=== PATIENT | female | born 1955 | race Caucasian/White ===

== ENCOUNTER 2017-07-26 17:43 | Inpatient (IN) | payer MEDICARE, BC ==
[~2017-07-26 17:43] MED LIST: ISOVUE-370 76%-LOCM 1 ML ONE
[2017-07-26 18:30] LABS: #Eosinphils 0.1 thou/uL (0.0-0.7); #Lymphocytes 0.7 thou/uL (1.20-3.40); #Monocytes 0.3 thou/uL (0.11-0.59); #Neutrophils 10.5 thou/uL (1.40-6.50); %Basophils 0.2 % (0.0-1.0); %Eosinophils 0.7 % (0.0-10.0); %Lymphocytes 6.3 % (21.0-51.0); %Monocytes 2.6 % (0.0-10.0); Hematocrit 43.7 % (36.0-47.0); Mean Platelet Volume 7.6 fL (7.4-10.4); Red Blood Cell (RBC) Count 4.68 mill/uL (4.20-5.40); White Blood Cell (WBC) Count 11.6 thou/uL (4.8-10.8)
[2017-07-26 18:35] LABS: PTT 26.5 SEC (22.9-36.1)
[2017-07-26 18:36] LABS: Prothrombin Time 24.9 SEC (12.0-14.7)
[2017-07-26] MEDS ORDERED: Water For Inject, Bacteriostat 30 ML ONE (18:46)
[2017-07-26] MEDS ORDERED: Azithromycin 500 MG VIAL ONE (18:46)
[2017-07-26] MEDS ORDERED: methylPREDNISolone Sod Succ/PF 125 MG/2 ML VIAL ONE (18:46)
[2017-07-26 18:50] LABS: ALT (SGPT) 20 U/L (8-55); AST (SGOT) 20 U/L (5-34); Alkaline Phosphatase 69 U/L (40-150); Anion Gap 18 mmol/L (10-20); BUN (Urea Nitrogen) 25 mg/dL (9.8-20.1); Bilirubin, Total 0.3 mg/dL (0.2-1.2); CK (CPK) 44 U/L (29-168); Calc. Creatinine Clearance 0 mL/min (70-130); Calcium 8.7 mg/dL (7.8-10.44); Carbon Dioxide 20 mmol/L (22-29); Chloride 108 mmol/L (98-107); Estimated GFR-MDRD 57; Globulin 3.2 g/dL (2.4-3.5); Protein, Total 6.8 g/dL (6.0-8.3)
[2017-07-26 18:53] LABS: Troponin I Less than 0.010 ng/mL (< 0.028)
--- NOTE | 2017-07-26 20:09 | RAD ---
ONE VIEW CHEST: Comparison: 01-19-17, 07-24-17 History: Shortness of breath. FINDINGS: Normal cardiac silhouette. Slight elongation of the aorta. Fullness of the right hilum likely due to decreased lung volumes. Increased interstitial opacity in the lung base may represent atelectasis o r infiltrate superimposed upon esophagus. No pneumothorax or osseous abnormality. IMPRESSION: Chronic changes. Bibasilar infiltrate cannot be excluded. Continued surveillance. POS: [facility]
--- NOTE | 2017-07-26 21:34 | CT ---
CTA ANGIOGRAM OF THE CHEST: History: Hypoxia, dyspnea. Prior DVT. Productive cough with green sputum. Comparison: 12-21-16 Technique: CT angiogram of the chest was performed in the axial plane. Coronal and oblique 3D reform atted images are submitted for interpretation. FINDINGS: Central bronchi are patent. Area of atelectasis or scarring in the lingula. Ischial linear opacities in the lung bases may represent atelectasis or scar. There are no suspicious masses in the lungs. N o significant pleural fluid. No pneumothorax. No mediastinal mass, lymphadenopathy. Heart size is within normal limits. Small amount of pericardia l fluid. The thoracic aorta, upper abdominal aorta normal caliber. No periaortic fat stranding. Posterior right sided hernia containing mesenteric fat is noted. The visualized upper solid organs a re unremarkable. Gallbladder appears to be surgically absent. Moderate hiatal hernia is noted. There are no lytic or blastic lesions in the osseous structures. Degenerative changes in the thoraci c spine are noted. Adequate contrast opacification of the pulmonary arterial system to the level of the segmental arter ies. No filling defect to suggest thromboembolism. IMPRESSION: 1. No evidence of pulmonary artery embolism to the level of the segmental arteries. 2. Additional findings as above. POS: [facility]
[2017-07-26] MEDS ORDERED: cloNIDine 0.1 MG TAB PO PRN (22:15)
[2017-07-26] MEDS ORDERED: hydrALAZINE 20 MG/ML VIAL SLOW IVP PRN (22:15)
[2017-07-26] MEDS ORDERED: Acetaminophen 500 MG TAB PO PRN (22:15)
[2017-07-26] MEDS ORDERED: ALPRAZolam 0.25 MG TAB PO PRN (22:49)
[2017-07-26] MEDS ORDERED: HYDROcodone/Acetaminophen 5/325 mg Tablet PO PRN ×2 (22:49→23:19)
[2017-07-26] MEDS ORDERED: Cyclobenzaprine 10 MG TAB PO PRN (22:49)
[2017-07-26] MEDS ORDERED: SUMAtriptan Succinate 50 MG TAB PO PRN (22:49)
[2017-07-26] MEDS ORDERED: Docusate 100 MG CAP PO PRN (22:49)
[2017-07-26] MEDS ORDERED: Polyethylene Glycol 3350 17 GM Packet PO PRN (22:49)
[2017-07-26] MEDS ORDERED: Temazepam 15 MG CAP PO PRN (23:13)
[2017-07-26] MEDS ORDERED: methylPREDNISolone Sod Succ/PF 125 MG/2 ML VIAL IVP SCH (23:59)
--- NOTE | 2017-07-27 01:39 | HP ---
DATE OF ADMISSION: 07/26/2017 PRIMARY CARE PROVIDER: Telly Rollins M.D. PRIMARY ADMINISTRATIVE LIAISON: Romero Caro M.D. CHIEF COMPLAINT: Cough and shortness of breath. HISTORY OF PRESENT ILLNESS: This is a 62-year-old female with known history of chronic hy poxemic respiratory failure on chronic oxygen supplementation at 2-3 liters per minute by nasal barbara nico, presenting with increased cough, congestion, shortness of breath without relief with home medic ations including the recent use of prednisone 60 mg daily as well as bronchodilator therapy with Duo Nebs and Keflex prescribed by her primary care provider. The patient states the symptoms progressed with increased shortness of breath and abating and prompting her to seek medical attention in the e mergency room. The patient denied any documented fever, but does state she had young children in he r house with viral type illness, suspecting she caught something from the children in her home. The patient states her influenza and pneumonia vaccination are current and has been compliant with her chronic medications. The patient does admit to nocturnal use of CPAP machine and has been compliant with this regimen. The patient denied any specific travel history, recent trauma, injury, hemoptys is, weight loss or chest pain. In the emergency room, the patient underwent general evaluation incl uding chest imaging showing chronic changes in bilateral lung beach. CT angiogram of the chest louie wed no evidence for pulmonary embolus and chronic changes as noted on plain radiographs. The patien t received IV vancomycin in addition to Zithromax, Solu-Medrol and bronchodilator therapy with DuoNe bs. The patient was transferred to the observation unit. PAST MEDICAL HISTORY: 1. Acute and chronic hypoxemic respiratory failure with chronic oxygen supplementation at 3 liters per minute by nasal cannula. 2. Morbid obesity. 3. Obstructive sleep apnea with nocturnal CPAP. 4. Remote tobacco use. 5. History of nephrolithiasis. 6. History of cerebrovascular accident. 7. Gastroesophageal reflux disease. 8. Hypertension. 9. Osteoarthritis. 10. Migraine headaches. 11. History of polycystic kidney disease. 12. History of deep vein thrombosis and pulmonary embolus on chronic Coumadin therapy. PAST SURGICAL HISTORY: 1. Status post colon resection. 2. Status post hernia repair. 3. Status post hysterectomy. 4. Status post ganglion cystectomy. 5. Status post tracheostomy and PEG tube placement with subsequent removal in 2005. 6. Status post excision of liver mass. 7. Status post repair of ruptured lumbar disk. 8. Status post hernia repair. CURRENT MEDICATIONS: 1. Xanax 0.25 mg p.o. daily. 2. Budesonide 0.5 mg nebulized b.i.d. 3. Flexeril 10 mg p.o. t.i.d. p.r.n. 4. Diltiazem XR 180 mg p.o. daily. 5. Docusate sodium 100 mg 1 tab p.o. daily. 6. Mobile-3 fatty acids 1 capsule p.o. daily. 7. [place] 5/325 mg 1-2 tabs p.o. q.4 hours p.r.n. pain. 8. DuoNebs 3 mL nebulized q.4 hours p.r.n. 9. Lactobacillus 1 capsule p.o. daily. 10. Singulair 10 mg p.o. at bedtime. 11. Multivitamin 1 tab p.o. daily. 12. Paxil 10 mg 1 tab p.o. daily. 13. MiraLax 17 grams p.o. daily. 14. Klor-Con 20 mEq one tab p.o. daily. 15. Sumatriptan 100 mg p.o. q.12 hours. 16. Restoril 30 mg p.o. at bedtime p.r.n. 17. Coumadin 3 mg p.o. daily. 18. Tramadol 60 mg p.o. daily. 19. Instaflex 1 capsule p.o. daily. ALLERGIES: 1. PENICILLIN. 2. ONDANSETRON. 3. CEFPROZIL. 4. CIPROFLOXACIN. 5. CLINDAMYCIN. FAMILY HISTORY: No inheritable diseases per patient report. SOCIAL HISTORY: The patient resides in [place], [place] with family members. No current alcohol, tobac co or illicit drug use. Quit smoking approximately 10 years prior to this evaluation. REVIEW OF SYSTEMS: The following complete review of systems was negative, unless otherwise mentione d in the HPI or below: Constitutional: Weight loss or gain, ability to conduct usual activities. Skin: Rash, itching. Eyes: Double vision, pain. ENT/Mouth: Nose bleeding, neck stiffness, pain, tenderness. Cardiovascular: Palpitations, dyspnea on exertion, orthopnea. Respiratory: Shortness of breath, wheezing, cough, hemoptysis, fever or night sweats. Gastrointestinal: Poor appetite, abdominal pain, heartburn, nausea, vomiting, constipation, or diar neema. Genitourinary: Urgency, frequency, dysuria, nocturia. Musculoskeletal: Pain, swelling. Neurologic/Psychiatric: Anxiety, depression. Allergy/Immunologic: Skin rash, bleeding tendency. PHYSICAL EXAMINATION: VITAL SIGNS: On admission, blood pressure 168/107, pulse 102, respiratory rate 26, temperature 98.4 degrees Fahrenheit, O2 saturation 95% on 3 liters per minute by nasal cannula. GENERAL APPEARANCE: This is a 62-year-old female, alert and oriented x3, pleasant, in no acute distress. HEENT: Pupils are equal, round, and reactive to light and accommodation. Extraocular muscles are i ntact. No scleral icterus, no conjunctival injection. Nares patent. OP is clear. Teeth in fair r epair. NECK: Supple, no cervical adenopathy, no thyromegaly, no carotid bruits, no JVD appreciated. Cervi marco spine with full active and passive range of motion. CHEST: Lungs with diminished breath sounds in the bases bilaterally. CARDIOVASCULAR: S1, S2 with distant heart sounds. ABDOMEN: Obese, soft, nontender, nondistended. Landmarks are difficult to palpate due to patient's body habitus. No rebound or guarding noted. EXTREMITIES: Warm and dry with fair turgor. No clubbing, cyanosis or asymmetric edema appreciated. Pulses palpable distally at the dorsalis pedis, posterior tibial, and popliteal arteries bilateral ly. Capillary refill less than 2 seconds. NEUROLOGIC: Cranial nerves II-XII are grossly intact. No focal or lateralizing signs appreciated. PERTINENT LABORATORY AND X-RAY FINDINGS: Sodium 141, potassium 4.7, chloride 108, CO2 of 20, BUN 25 , creatinine 1.0 with estimated GFR 57, glucose 306, calcium 8.7. LFTs within normal limits. Tropo monalisa I negative x1. BNP 67, albumin 3.6. CBC showed a white blood cell count 11.6, hemoglobin 14, h ematocrit 44, platelet count 182 with 90% neutrophils. PT 24.9, INR 2.2, PTT 26.5. Portable chest x-ray dated 07/26/2017 showed chronic changes in bilateral lung beach. CT angiogram of the chest d ated 07/26/2017 showed no evidence for pulmonary embolism. Atelectasis and scarring in the lingula. EKG dated 07/26/2017 by my interpretation shows sinus tachycardia with heart rates in the low 100s . Attenuated R waves noted in the precordial leads. Normal axis. No acute ST-T wave changes appre ciated. ASSESSMENT AND PLAN: 1. Acute on chronic hypoxemic respiratory failure. The patient will be observed on the telemetry u nit. We will continue bronchodilator therapy with DuoNebs q.4 hours. Continue Zithromax 250 mg p.o . daily. Add Pulmicort 0.5 mg nebulized b.i.d. Continue Solu-Medrol 40 mg IV q.6 hours. Continue oxygen supplementation to maintain O2 saturations greater than or equal to 90%. 2. Acute chronic obstructive pulmonary disease exacerbation. See #1 above. Continue general pulmo nary supportive measures as outlined previously. 3. History of deep venous thrombosis on chronic Coumadin therapy. We will continue Coumadin with o utpatient regimen. Daily PT/INR. 4. Obstructive sleep apnea with nocturnal CPAP. We will continue CPAP nocturnally and monitor clin ical response. 5. Hypertension. Resume home antihypertensive regimen and monitor clinical response. 6. Prophylaxis. Sequential compression devices while in bed. Pepcid 20 mg p.o. b.i.d. 7. Code status is FULL. Surrogate medical decision maker is patient's sister, Eliane Ann.
[2017-07-27 05:48] LABS: Hematocrit 41.2 % (36.0-47.0); Mean Platelet Volume 7.3 fL (7.4-10.4); Neutrophil 91 % (42-75); Reactive Lymphocytes 3 % (0-10); Red Blood Cell (RBC) Count 4.44 mill/uL (4.20-5.40); White Blood Cell (WBC) Count 11.3 thou/uL (4.8-10.8)
[2017-07-27 05:57] LABS: Anion Gap 13 mmol/L (10-20); BUN (Urea Nitrogen) 22 mg/dL (9.8-20.1); Calc. Creatinine Clearance 127 mL/min (70-130); Calcium 8.9 mg/dL (7.8-10.44); Carbon Dioxide 24 mmol/L (22-29); Chloride 105 mmol/L (98-107); Estimated GFR-MDRD 72
[2017-07-27] MEDS: Budesonide 0.25 MG/2 ML NEB NEB SCH ×2 (06:39→18:39)
[2017-07-27] MEDS ORDERED: INSTAFLEX PO SCH (09:00)
[2017-07-27] MEDS ORDERED: Multivitamin W/ Minerals 1 TAB PO SCH (09:00)
[2017-07-27] MEDS: PARoxetine 20 MG TAB PO SCH (09:41)
[2017-07-27] MEDS: Fish Oil 1,000 MG CAP PO SCH (09:42)
[2017-07-27] MEDS: Famotidine 20 MG TAB PO SCH ×2 (09:42→20:19)
[2017-07-27] MEDS: Multivit, Therapeutic 1 TAB PO SCH (09:42)
[2017-07-27] MEDS: Lactinex Tablet PO SCH (09:42)
[2017-07-27] MEDS: Azithromycin 250 MG TAB PO SCH (09:42)
[2017-07-27] MEDS: traMADol HCl 50 MG TAB PO SCH (09:43)
[2017-07-27] MEDS: Potassium Chloride 20 MEQ TAB PO SCH (09:44)
[2017-07-27] MEDS: Benzonatate 100 MG CAP PO PRN (12:20)
--- NOTE | 2017-07-27 15:09 | PDOC.PN ---
- Subjective Encounter Start Date: 07/27/17 Encounter Start Time: 15:07 sob better no n/v no f/c - Objective Resuscitation Status: Resuscitation Status FULL:Full Resuscitation MAR Reviewed: Yes Vital Signs & Weight: Vital Signs (12 hours) Temp Pulse Resp BP BP Pulse Ox 07/27/17 14:08 80 17 07/27/17 10:48 98.2 F 90 16 142/87 H 94 L 07/27/17 10:41 99 07/27/17 10:39 71 18 99 07/27/17 08:00 97.4 F L 71 18 07/27/17 07:33 97.4 F L 73 16 140/75 98 07/27/17 06:41 94 L 07/27/17 06:38 70 16 94 L 07/27/17 04:30 80 18 134/71 94 L Weight Weight 239 lb 11.2 oz I&O: 07/26/17 07/27/17 07/28/17 06:59 06:59 06:59 Output Total 500 Balance -500 Result Diagrams: 07/27/17 05:12 07/27/17 05:12 Phys Exam - Physical Examination Constitutional: NAD HEENT: PERRLA, moist MMs Neck: no JVD Respiratory: no wheezing air entry improved Cardiovascular: no significant murmur Gastrointestinal: non-tender Musculoskeletal: pulses present Neurological: moves all 4 limbs Psychiatric: A&O x 3 Dx/Plan (1) COPD exacerbation Code(s): J44.1 - CHRONIC OBSTRUCTIVE PULMONARY DISEASE W (ACUTE) EXACERBATION Status: Acute (2) DVT of lower extremity, bilateral Code(s): I82.403 - ACUTE EMBOLISM AND THOMBOS UNSP DEEP VEINS OF LOW EXTRM, BI Status: Acute (3) GERD (gastroesophageal reflux disease) Code(s): K21.9 - GASTRO-ESOPHAGEAL REFLUX DISEASE WITHOUT ESOPHAGITIS Status: Acute Qualifiers: Comment: has severe ulcerations seen on egd 12/20/16 (4) Physical deconditioning Code(s): R53.81 - OTHER MALAISE Status: Acute (5) Hypertension Code(s): I10 - ESSENTIAL (PRIMARY) HYPERTENSION Status: Chronic Qualifiers: Comment: currently hypotensive due to cortisol def/dehydration (6) NICK (obstructive sleep apnea) Code(s): G47.33 - OBSTRUCTIVE SLEEP APNEA (ADULT) (PEDIATRIC) Status: Chronic Comment: on cpap (7) Obesity (BMI 30-39.9) Code(s): E66.9 - OBESITY, UNSPECIFIED Status: Chronic - Plan * cont current plan * feels better * f/u dr guaman's rec's
[2017-07-27] MEDS: Warfarin Sodium 3 MG TAB PO SCH (16:34)
[2017-07-27 17:29] LABS: Hematocrit 42.2 % (36.0-47.0)
--- NOTE | 2017-07-27 18:47 | CON ---
DATE OF CONSULTATION: 07/27/2017 HISTORY OF PRESENT ILLNESS: Elvira Rojas is a morbidly obese patient of Dr. Caro, who came in with a 3-day history of right-sided chest pain, worse with deep breathing and coughing. This has b een going on since Thursday, symptoms got worse. ER chest x-ray and a CAT scan were done, which showe d no PE, no blood clots, no obvious pneumonia. She was admitted today. She said she is feeling elif ewhat better, but is having difficulty breathing. The sputum which was originally green, now is yel low. No fever or chills. On most days, she can barely walk any significant distance without getting markedly short of breath. She had been here numerous times in the hospital; most days, she has difficulty breathing. PAST MEDICAL HISTORY: Severe COPD, deconditioning, morbid obesity, respiratory failure, TIA and mul tiple ER visits. PAST SURGICAL HISTORY: Multiple surgeries as outlined below including a previous PEG, ventral herni a operation. Apparently adrenal deficiency. Previous endoscopy. MEDICINES FROM HOME: Tramadol, prednisone 10 twice a day, Coumadin 3, Restoril 30, Imitrex 100, Phe nergan, potassium, Paxil 10, Protonix 40, vitamin, Singulair 10, DuoNeb, Cardizem 180, Flexeril 10, Symbicort and Xanax. ALLERGIES: Numerous; PENICILLIN, CIPRO, CLINDAMYCIN, CODEINE, FLAGYL and SULFA. REVIEW OF SYSTEMS: Unobtainable. PHYSICAL EXAMINATION: GENERAL: Morbidly obese female in no acute distress. VITAL SIGNS: Stable with sat 94%, pulse 80, respirations 20 and blood pressure 130/80. CHEST: Decreased breath sounds without any wheezing. CARDIAC: Normal S1 and S2. No gallops. ABDOMEN: No masses. IMAGING DATA: Chest x-ray showed no acute infiltrates. CT angio showed no infiltrates, masses or p ulmonary emboli. LABORATORY DATA: Lab shows otherwise white count of 11,000, hemoglobin and hematocrit 12 and 41, pl atelet count is normal. INR is 2.2. Electrolytes are normal. IMPRESSION AND PLAN: Chronic obstructive pulmonary disease exacerbation, bronchitis, right-sided ch est pain probably musculoskeletal. I agree with present treatment. Continue neb treatments, empiri c antibiotics, pain relief, steroids as outlined. Will notify Dr. Caro.
[2017-07-27] MEDS: Montelukast Sodium 10 mg Tablet PO SCH (20:18)
[2017-07-27] MEDS ORDERED: Sterile Water 10 ML ONE (23:22)
[2017-07-28 05:39] VITALS: BMI 38.6
[2017-07-28 05:44] LABS: Prothrombin Time 28.2 SEC (12.0-14.7)
[2017-07-28] MEDS: Budesonide 0.25 MG/2 ML NEB NEB SCH ×2 (07:27→18:38)
[2017-07-28] MEDS: traMADol HCl 50 MG TAB PO SCH (09:36)
[2017-07-28] MEDS: Potassium Chloride 20 MEQ TAB PO SCH (09:38)
[2017-07-28] MEDS: Azithromycin 250 MG TAB PO SCH (09:40)
[2017-07-28] MEDS: Multivit, Therapeutic 1 TAB PO SCH (09:40)
[2017-07-28] MEDS: Fish Oil 1,000 MG CAP PO SCH (09:40)
[2017-07-28] MEDS: PARoxetine 20 MG TAB PO SCH (09:40)
[2017-07-28] MEDS: Lactinex Tablet PO SCH (11:01)
[2017-07-28] MEDS: Famotidine 20 MG TAB PO SCH ×2 (11:02→20:17)
--- NOTE | 2017-07-28 11:55 | PDOC.PN ---
- Subjective Encounter Start Date: 07/28/17 Encounter Start Time: 11:54 breathing better not at baseline though no f/c no n/v - Objective Resuscitation Status: Resuscitation Status FULL:Full Resuscitation MAR Reviewed: Yes Vital Signs & Weight: Vital Signs (12 hours) Temp Pulse Resp BP Pulse Ox 07/28/17 10:37 86 18 95 07/28/17 07:50 98.0 F 75 20 143/89 H 95 07/28/17 07:27 84 15 97 07/28/17 04:00 96.3 F L 72 20 157/82 H 94 L 07/28/17 03:52 96 07/28/17 01:36 85 16 96 Weight Weight 239 lb 7 oz I&O: 07/27/17 07/28/17 07/29/17 06:59 06:59 06:59 Intake Total 1091 Output Total 598 773 8602 Balance -500 381 -1000 Result Diagrams: 07/27/17 17:19 07/27/17 05:12 Phys Exam - Physical Examination Constitutional: NAD HEENT: PERRLA Neck: no JVD Respiratory: no rales, no rhonchi decreased bs at bases Cardiovascular: no significant murmur Gastrointestinal: non-tender Musculoskeletal: pulses present Neurological: moves all 4 limbs Psychiatric: A&O x 3 Dx/Plan (1) COPD exacerbation Code(s): J44.1 - CHRONIC OBSTRUCTIVE PULMONARY DISEASE W (ACUTE) EXACERBATION Status: Acute (2) DVT of lower extremity, bilateral Code(s): I82.403 - ACUTE EMBOLISM AND THOMBOS UNSP DEEP VEINS OF LOW EXTRM, BI Status: Acute (3) GERD (gastroesophageal reflux disease) Code(s): K21.9 - GASTRO-ESOPHAGEAL REFLUX DISEASE WITHOUT ESOPHAGITIS Status: Acute Qualifiers: Comment: has severe ulcerations seen on egd 12/20/16 (4) Physical deconditioning Code(s): R53.81 - OTHER MALAISE Status: Acute (5) Hypertension Code(s): I10 - ESSENTIAL (PRIMARY) HYPERTENSION Status: Chronic Qualifiers: Comment: currently hypotensive due to cortisol def/dehydration (6) NICK (obstructive sleep apnea) Code(s): G47.33 - OBSTRUCTIVE SLEEP APNEA (ADULT) (PEDIATRIC) Status: Chronic Comment: on cpap (7) Obesity (BMI 30-39.9) Code(s): E66.9 - OBESITY, UNSPECIFIED Status: Chronic - Plan * cont current mx * f/u pulm plan
[2017-07-28] MEDS: Benzonatate 100 MG CAP PO PRN (12:20)
--- NOTE | 2017-07-28 14:28 | PRG ---
DATE OF SERVICE: 07/28/2017 Ms. Rojas' events have been reviewed. She says she has been sick for several days prior to coming t o the hospital. She was seen by Dr. Rollins on Thursday, failed to improve and subsequently was admitt ed over the weekend. She is currently still short of breath she says. She moves about at all, she gets more short of radha ath. OBJECTIVE: VITAL SIGNS: She is afebrile, heart rate in the 90s, respiratory rate is 18, oximetry is 96 on 3 li ters, blood pressure 144/90. LUNGS: Remarkable for diffuse wheezes with a prolonged expiratory phase. HEART: Regular rhythm. ABDOMEN: Soft. IMPRESSION: Chronic obstructive pulmonary disease exacerbation, likely triggered by a viral illness which created the pleurisy, chest radiograph and chest CT did not show any infiltrates. She had a CT angiogram which really was not needed since she is already anticoagulated for past thromboembolic disease. In any event, we will continue with current care. Her PT and INR will need to be watched closely because of her antimicrobial therapy. Her steroid dosing can be decreased.
[2017-07-28] MEDS: Warfarin Sodium 3 MG TAB PO SCH (17:10)
[2017-07-28] MEDS: Magnesium Oxide 400 MG TAB PO SCH (20:17)
[2017-07-28] MEDS: Montelukast Sodium 10 mg Tablet PO SCH (20:17)
[2017-07-29 04:37] LABS: Prothrombin Time 31.2 SEC (12.0-14.7)
[2017-07-29 04:52] LABS: Anion Gap 12 mmol/L (10-20); BUN (Urea Nitrogen) 34 mg/dL (9.8-20.1); BUN/Creatinine Ratio 34.69; Calc. Creatinine Clearance 97 mL/min (70-130); Calcium 8.6 mg/dL (7.8-10.44); Carbon Dioxide 27 mmol/L (22-29); Chloride 102 mmol/L (98-107); Estimated GFR-MDRD 58; Phosphorus 3.8 mg/dL (2.3-4.7)
[2017-07-29] MEDS: Budesonide 0.25 MG/2 ML NEB NEB SCH (07:07)
[2017-07-29] MEDS: Azithromycin 250 MG TAB PO SCH (07:36)
[2017-07-29] MEDS: traMADol HCl 50 MG TAB PO SCH (07:36)
[2017-07-29] MEDS: Fish Oil 1,000 MG CAP PO SCH (07:36)
[2017-07-29] MEDS: Multivit, Therapeutic 1 TAB PO SCH (07:37)
[2017-07-29] MEDS: Magnesium Oxide 400 MG TAB PO SCH (07:37)
[2017-07-29] MEDS: Famotidine 20 MG TAB PO SCH (07:37)
[2017-07-29] MEDS: PARoxetine 20 MG TAB PO SCH (07:37)
[2017-07-29] MEDS: Potassium Chloride 20 MEQ TAB PO SCH (07:37)
[2017-07-29] MEDS: Lactinex Tablet PO SCH (08:29)
[2017-07-29 15:33] VITALS: BP 124/59; TEMP 98.8
--- NOTE | 2017-07-29 15:36 | PDOC.PN ---
- Subjective Encounter Start Date: 07/29/17 Encounter Start Time: 15:34 feels much better no n/v no f/c - Objective MAR Reviewed: Yes Vital Signs & Weight: Vital Signs (12 hours) Temp Pulse Resp BP Pulse Ox 07/29/17 15:10 98.8 F 76 20 124/59 L 94 L 07/29/17 14:07 75 20 95 07/29/17 11:10 98.7 F 93 24 H 191/107 H 94 L 07/29/17 10:49 82 20 96 Result Diagrams: 07/27/17 17:19 07/29/17 04:10 Phys Exam - Physical Examination Constitutional: NAD HEENT: PERRLA Respiratory: no wheezing prolonged expiratory pahse Cardiovascular: no significant murmur Gastrointestinal: no distention Musculoskeletal: pulses present Neurological: moves all 4 limbs Psychiatric: A&O x 3 Dx/Plan (1) COPD exacerbation Code(s): J44.1 - CHRONIC OBSTRUCTIVE PULMONARY DISEASE W (ACUTE) EXACERBATION Status: Acute (2) DVT of lower extremity, bilateral Code(s): I82.403 - ACUTE EMBOLISM AND THOMBOS UNSP DEEP VEINS OF LOW EXTRM, BI Status: Acute (3) GERD (gastroesophageal reflux disease) Code(s): K21.9 - GASTRO-ESOPHAGEAL REFLUX DISEASE WITHOUT ESOPHAGITIS Status: Acute Qualifiers: Comment: has severe ulcerations seen on egd 12/20/16 (4) Physical deconditioning Code(s): R53.81 - OTHER MALAISE Status: Acute (5) Hypertension Code(s): I10 - ESSENTIAL (PRIMARY) HYPERTENSION Status: Chronic Qualifiers: Comment: currently hypotensive due to cortisol def/dehydration (6) NICK (obstructive sleep apnea) Code(s): G47.33 - OBSTRUCTIVE SLEEP APNEA (ADULT) (PEDIATRIC) Status: Chronic Comment: on cpap (7) Obesity (BMI 30-39.9) Code(s): E66.9 - OBESITY, UNSPECIFIED Status: Chronic - Plan * cont current rx * f/u dr guaman plan
--- NOTE | 2017-07-29 15:57 | PRG ---
DATE OF SERVICE: 07/29/2017 SUBJECTIVE: Ms. Rojas did well overnight. She took a shower today. OBJECTIVE: VITAL SIGNS: Blood pressure 169/79 this morning; this afternoon, she was hypertensive, it is unclear whether this was taken with large cuff or not. She is afebrile, heart rate 75, respiratory rate is 20. LUNGS: Remarkable for more audible wheezes. She says she feels much better. LABORATORY DATA: Electrolytes are normal. IMPRESSION: Chronic obstructive pulmonary disease exacerbation. I have written a prescription for a zithromycin and prednisone. She will follow up with me in a couple of weeks.
--- NOTE | 2017-07-29 22:16 | DIS ---
DATE OF ADMISSION: 07/26/2017 DATE OF DISCHARGE: 07/29/2017 DISCHARGE DIAGNOSES: 1. Chronic obstructive pulmonary disease exacerbation. 2. Acute on chronic hypoxic respiratory failure secondary to chronic obstructive pulmonary disease e xacerbation, chronic respiratory failure uses home oxygen at 3 liters. 3. Morbid obesity. 4. Obstructive sleep apnea. 5. Remote tobacco use. 6. History of nephrolithiasis. 7. History of cerebrovascular accident. 8. Gastroesophageal reflux disease. 9. Hypertension. 10. Osteoarthritis. 11. Migraine headaches. 12. History of polycystic kidney disease. 13. History of deep vein thrombosis and pulmonary embolism on chronic Coumadin therapy. DISCHARGE MEDICATIONS: Include Z-John, prednisone with tapering dose per Dr. Caro and continuation o f other home medications. CONSULTANTS: The patient's consultants on the case were Dr. Caro. BRIEF HOSPITAL COURSE: A 62-year-old pleasant lady came into the hospital with cough and shortness o f breath. She was admitted to the hospital for the treatment of COPD exacerbation. Please refer to the admitting physician's H&P for further details. She was given IV steroids, nebulizer treatments, antibiotics, and some cough medications. Dr. Caro evaluated the patient, optimized the dose of the steroid, she improved, and today is feeling much better. Dr. Caro is okay with sending the patient home with outpatient followup with him. She is right now medically stable to be discharged. She is asked to come back to the emergency room in case symptoms recur. Total time for this discharge took 35 minutes.
[2017-07-30] MEDS ORDERED: Warfarin Sodium 2 MG TAB PO SCH (17:00)
== END 2017-07-29 16:59 | disposition home or self-care (01) | DRG 190 ==
LOC: ERS 17:43 → 2SW 21:14 → OBSVTOIN 07-29 10:30
PROVIDERS: ADMIT Family Medicine; ATTEND Family Medicine
PROC: 5A09357 Assistance with Respiratory Ventilation, Less than 24 Consecutive Hours, Continuous Positive Airway Pressure (ICD-10-PCS; principal; 2017-07-26)
PROC: 5A09357 Assistance with Respiratory Ventilation, Less than 24 Consecutive Hours, Continuous Positive Airway Pressure (ICD-10-PCS; 2017-07-28)
PROC: 5A09357 Assistance with Respiratory Ventilation, Less than 24 Consecutive Hours, Continuous Positive Airway Pressure (ICD-10-PCS; 2017-07-29)
DX: J44.1 Chronic obstructive pulmonary disease with (acute) exacerbation (principal); J96.21 Acute and chronic respiratory failure with hypoxia; I95.89 Other hypotension; Q61.3 Polycystic kidney, unspecified; Z99.81 Dependence on supplemental oxygen; E66.01 Morbid (severe) obesity due to excess calories; E86.0 Dehydration; G47.33 Obstructive sleep apnea (adult) (pediatric); Z68.38 Body mass index [BMI] 38.0-38.9, adult; I95.2 Hypotension due to drugs; T38.0X5A Adverse effect of glucocorticoids and synthetic analogues, initial encounter; Z79.01 Long term (current) use of anticoagulants; Z86.73 Personal history of transient ischemic attack (TIA), and cerebral infarction without residual deficits; Z86.718 Personal history of other venous thrombosis and embolism; Z86.711 Personal history of pulmonary embolism; Z87.891 Personal history of nicotine dependence; K21.9 Gastro-esophageal reflux disease without esophagitis; I10 Essential (primary) hypertension; M19.90 Unspecified osteoarthritis, unspecified site; G43.909 Migraine, unspecified, not intractable, without status migrainosus
CPT/HCPCS: 36415; 71010; 71275; 80048; 80053; 80069; 82553; 83735; 83880; 84484; 85007; 85025; 85027; 85610; 85730; 93005; 94640; 96365; 96366; 96368; 96375; A4216; J0456; J2920; J2930; J3370; J7620; J7626

== ENCOUNTER 2017-08-24 09:21 | Outpatient (CLI) | payer MEDICARE, BC ==
[2017-08-24 09:53] LABS: Bilirubin Negative (Negative); Blood, Urine Moderate (Negative); Glucose, Urine (Dipstick) Negative (Negative); Ketone, Urine Negative (Negative); Nitrite Negative (Negative); Protein, Urine (Dipstick) Negative (Neg-Trace)
[2017-08-24 09:55] LABS: Bacteria/HPF None Seen HPF (None Seen); Hyaline Casts/LPF 0-3 HYALINE CAST LPF (0-3 Hyaline); RBC/HPF 21-50 HPF (0-3); Squamous Epithelial 0-3 HPF (0-3)
[2017-08-24 10:04] LABS: Anion Gap 10 mmol/L (10-20); BUN (Urea Nitrogen) 20 mg/dL (9.8-20.1); Calc. Creatinine Clearance 0 mL/min (70-130); Calcium 8.9 mg/dL (7.8-10.44); Carbon Dioxide 29 mmol/L (22-29); Chloride 108 mmol/L (98-107); Estimated GFR-MDRD 68; Uric Acid 6.6 mg/dL (2.6-6.0)
--- NOTE | 2017-08-24 11:32 | ULT ---
RENAL ULTRASOUND: HISTORY: Renal cyst. COMPARISON: 02/16/2017 TECHNIQUE: Multiplanar mcneil-scale and color Doppler images were obtained in a renal ultrasound. FINDINGS: There are anechoic cysts in both kidneys. The largest is seen on the right, measuring 2.5 cm in size . Both kidneys demonstrate increased echogenicity without hydronephrosis or shadowing calculi and me asure 11.2 and 12.1 cm in length on the right and left, respectively. The urinary bladder is decompressed, as the patient recently voided. IMPRESSION: 1. Bilateral renal cysts. 2. Echogenic kidneys may be secondary to chronic medical renal disease. POS: [facility]
--- NOTE | 2017-08-24 12:12 | RAD ---
KUB 08/24/2017 HISTORY: Calculus of kidney. COMPARISON: 02/16/2017 FINDINGS: There is mild gaseous prominence of bowel within the upper abdomen. There is significant stool prese nt. There are spiral metallic densities overlying the mid abdomen, suggesting prior hernia repair. There is no evidence for bowel obstruction. Detailed assessment for renal stone disease is limited secondary to stool and bowel content. Two fang nt areas of calcification are suspected in the left upper quadrant, measuring 5-6 mm, which may signi fy small stones within the left kidney, as seen within the right upper quadrant. Small calculi may b e nonvisualized secondary to limitations. IMPRESSION: Probable small stones within the left kidney. No definite right renal stone seen. POS: [facility]
== END 2017-08-24 09:22 | disposition home or self-care (01) ==
LOC: ULT 09:21
PROVIDERS: ATTEND Urology
DX: N20.0 Calculus of kidney (principal); Q61.3 Polycystic kidney, unspecified; N28.89 Other specified disorders of kidney and ureter
CPT/HCPCS: 36415; 74000; 76770; 80048; 81001; 84550; 87086

== ENCOUNTER 2017-08-31 07:58 | Outpatient (CLI) | payer MEDICARE, BC | END 2017-08-31 07:59 | disposition home or self-care (01) | LOC: BICMAMMO 07:58 | PROVIDERS: ATTEND Family Medicine | DX: Z12.31 Encounter for screening mammogram for malignant neoplasm of breast (principal); R92.1 Mammographic calcification found on diagnostic imaging of breast | CPT/HCPCS: 77063; G0202; 77067 ==

== ENCOUNTER 2017-10-11 10:23 | Inpatient (IN) | payer BC, MEDICARE ==
[2017-10-11] MEDS ORDERED: diphenhydrAMINE 50 MG/ML VIAL ONE (10:33)
[2017-10-11] MEDS ORDERED: Metoclopramide HCl 10 MG/2 ML VIAL ONE (10:33)
[2017-10-11] MEDS ORDERED: Albuterol Sulfate 2.5 mg/0.5 ml Neb ONE ×6 (10:50→12:06)
[2017-10-11] MEDS ORDERED: Albuterol Sulfate 2.5 mg/3 ml Neb ONE ×2 (10:50→12:07)
[2017-10-11 11:19] LABS: #Basophils 0.1 thou/uL (0.0-0.2); #Eosinphils 0.2 thou/uL (0.0-0.7); #Lymphocytes 4.4 thou/uL (1.20-3.40); #Monocytes 1.3 thou/uL (0.11-0.59); #Neutrophils 13.8 thou/uL (1.40-6.50); %Basophils 0.3 % (0.0-1.0); %Eosinophils 0.8 % (0.0-10.0); %Lymphocytes 22.2 % (21.0-51.0); %Monocytes 6.4 % (0.0-10.0); %Neutrophils 70.2 % (42.0-75.0); Hemoglobin 13.4 g/dL (12.0-16.0); Mean Corpuscular HGB CONC 31.6 g/dL (32.0-36.0); Mean Corpuscular Hemoglobin 29.2 pg (27.0-31.0); Mean Corpuscular Volume 92.4 fl (81.0-99.0); Mean Platelet Volume 7.6 fL (7.4-10.4); Platelet Count 171 thou/uL (130-400); RBC Distribution Width 14.5 % (11.5-14.5); White Blood Cell (WBC) Count 19.7 thou/uL (4.8-10.8)
[2017-10-11 11:28] LABS: INR-International Normal Ratio 1.7; Prothrombin Time 20.8 SEC (12.0-14.7)
[2017-10-11 11:47] LABS: ALT (SGPT) 18 U/L (8-55); AST (SGOT) 21 U/L (5-34); Albumin 3.8 g/dL (3.5-5.0); Alkaline Phosphatase 68 U/L (40-150); Anion Gap 15 mmol/L (10-20); BUN (Urea Nitrogen) 10 mg/dL (9.8-20.1); Calc. Creatinine Clearance 0 mL/min (70-130); Calcium 8.8 mg/dL (7.8-10.44); Carbon Dioxide 26 mmol/L (22-29); Chloride 101 mmol/L (98-107); Estimated GFR-MDRD 71; Globulin 2.9 g/dL (2.4-3.5); Glucose 105 mg/dL (70-105); Magnesium 2.2 mg/dL (1.6-2.6); Potassium 3.4 mmol/L (3.5-5.1); Protein, Total 6.7 g/dL (6.0-8.3); Sodium 139 mmol/L (136-145)
--- NOTE | 2017-10-11 11:53 | RAD ---
CHEST 1 VIEW: Date: 10/11/17 HISTORY: Shortness of breath. COMPARISON: Chest 1 view dated 07/26/17. FINDINGS: Layering left effusion. Right basilar opacities. Right middle lobe opacity. No pneumothorax. Dense calcifications of aorta. IMPRESSION: 1. New layering left effusion. 2. Bibasilar and right middle lobe opacities may reflect scarring versus developing infiltrate. POS: [facility]
[2017-10-11] MEDS ORDERED: Azithromycin 500 MG in Sodium Chloride 0.9% 250 ML 250 ML IVPB SCH (13:30)
[2017-10-11 13:34] LABS: Actual Bicarbonate (HCO3a) 24.2 mEq/L (22-26); Base Excess (BEa) -0.3 mEq/L (0 (+/-) 2.5); CO2 Tension 39.2 mmHg (35.0-45.0); O2 Tension (PaO2) 69.7 mmHg (80.0-100.0); pH, Arterial 7.41 (7.35-7.45)
[2017-10-11 13:35] LABS: Analyzer IN Cardio ER; Calcium, Ionized 1.1 mmol/L (1.12-1.30); Puncture Site LRA
[2017-10-11 15:11] LABS: Troponin I 0.011 ng/mL (< 0.028)
[2017-10-11] MEDS ORDERED: HYDROcodone/Acetaminophen 5/325 mg Tablet PO PRN (15:25)
[2017-10-11] MEDS ORDERED: Milk Of Magnesia 30 ML UDCUP PO PRN (15:25)
[2017-10-11] MEDS ORDERED: Benzonatate 100 MG CAP PO PRN (15:25)
[2017-10-11] MEDS ORDERED: HYDROcodone/Acetaminophen 10/325 mg Tablet PO PRN (15:25)
[2017-10-11] MEDS ORDERED: Ondansetron ODT 4 MG TAB PO PRN (15:25)
[2017-10-11] MEDS ORDERED: hydrALAZINE 20 MG/ML VIAL SLOW IVP PRN (15:25)
[2017-10-11] MEDS ORDERED: Lorazepam 1 MG TAB PO PRN (15:25)
[2017-10-11 16:26] LABS: Bilirubin Negative (Negative); Blood, Urine Large (Negative); Glucose, Urine (Dipstick) Negative (Negative); Leukocyte Negative (Negative); Nitrite Negative (Negative); Protein, Urine (Dipstick) Negative (Neg-Trace); Urobilinogen 0.2 mg/dL (0.2-1.0); pH, Urine 5.5 (5.0-9.0)
[2017-10-11 16:29] LABS: Clarity Hazy (Clear); Specific Gravity, Urine 1.005 (1.002-1.036)
[2017-10-11 16:47] LABS: Bacteria/HPF None Seen HPF (None Seen); Hyaline Casts/LPF 0-3 HYALINE CAST LPF (0-3 Hyaline); RBC/HPF None Seen HPF (0-3); Squamous Epithelial None Seen HPF (0-3); WBC/HPF 0-3 HPF (0-3)
[2017-10-11 16:57] LABS: Crystals/HPF RARE URIC ACID HPF (Negative)
[2017-10-11 17:52] VITALS: BMI 47.5
--- NOTE | 2017-10-11 18:21 | HP ---
PRIMARY CARE PHYSICIAN: Telly Rollins M.D. CHIEF COMPLAINT: Shortness of breath. HISTORY OF PRESENT ILLNESS: Ms. Rjoas is a pleasant 62-year-old female, who has multiple medical pro blems including COPD, asthma, and obstructive sleep apnea. She was in her usual state of health unti l one day prior to admission when she says she began getting short of breath. She also noted a heada buffy and some diarrhea. She also says she has had a cough, which has been productive, but she does no t remember or cannot say what the phlegm looks like that comes up. She also had some subjective feve r, which started yesterday as well. The symptoms got progressively worse and this is the reason that she came to the ER for evaluation. She also has had some nausea and she has some swelling in her ri ght leg, but the swelling has been about the same as usual. She denies any PND, but she has had some orthopnea. She also admits to some sick contacts with her niece and nephew being sick recently. In the ER, she was evaluated and found to have bibasilar right middle lobe opacity and also a new layer ing effusion on the left and for this reason she is being admitted. She has been given a couple of n eb treatments in the emergency room and a dose of vancomycin and azithromycin, and she is being admit richard for further evaluation. REVIEW OF SYSTEMS: Constitutional: She has had subjective fever, no chills, no night sweats, no barbara ght loss. HEENT: She has had some headache, no dizziness, no visual changes, no sore throat, rhinor neema, neck pain, no adenopathy. Pulmonary: As stated in the history of present illness. Cardiovasc ular: She denies any chest pain. She has had some orthopnea, but no PND, no increase in lower extre mity edema. Gastrointestinal: She has had some nausea and one episode of vomiting while here as wel l as some diarrhea. No hematemesis or melena. Genitourinary: No urinary frequency, hematuria, no h esitancy: Neurologic: No focal weakness, numbness, no seizures. Psychiatric: No symptoms of anxie ty or depression. Skin and Integument: No skin changes. No rash. PAST MEDICAL HISTORY: Significant for chronic respiratory failure due to COPD, hypertension, asthma, obstructive sleep apnea, obesity, gastroesophageal reflux disease, osteoarthritis, polycystic kidney disease, and history of deep vein thrombosis. PAST SURGICAL HISTORY: She has had a hysterectomy, colon resection, kidney stone, ganglion cyst anthony dorys, hernia repair, ruptured disk surgery and surgery for a liver mass. ALLERGIES: PENICILLIN, ZOFRAN, CEFPROZIL, CIPRO, and CLINDAMYCIN. SOCIAL HISTORY: She is a former smoker. She is a nondrinker. Denies any drug use. FAMILY HISTORY: No history of any inheritable diseases. MEDICATIONS: These are taken from the hospital electronic records and include Coumadin 3 mg daily, t ramadol 50 mg daily, Restoril 30 mg daily, Imitrex 100 mg q.12 hours as needed, Phenergan 25 mg q.6 h ours, prednisone 10 mg twice a day, potassium chloride 10 mEq daily, MiraLax 17 grams daily, Paxil 10 mg daily, Protonix 40 mg daily, multivitamin once a day, Singulair 10 mg daily, Lactobacillus 1 caps ule daily, DuoNebs as needed, diltiazem XR 180 mg daily, docusate 100 mg daily, fish oil as needed, N orco 5/325 q.4 hours as needed, Flexeril 10 mg t.i.d., budesonide nebs twice a day, and alprazolam 0. 25 mg as needed. PHYSICAL EXAMINATION: GENERAL: She is alert and oriented. She is in some distress due to dyspnea. VITAL SIGNS: Her initial blood pressure was approximately 198/90, heart rate is in the 90s, respirat ory rate is 18, and temperature was 99.7. HEENT: Her pupils are equal, round, and reactive. Extraocular muscles are intact. Sclerae are anic teric. Throat: No erythema, no exudates. NECK: No adenopathy, no bruits. LUNGS: She has got bilateral expiratory wheezing and some rales at the base, decreased breath sounds on the left. CARDIOVASCULAR: She has a normal S1 and S2. No S3 or S4. No murmurs, clicks or rubs. ABDOMEN: Obese, it is soft, it is nontender, nondistended. Positive for bowel sounds. No rebound o r guarding. EXTREMITIES: She has got 2+ pitting edema bilaterally, some mild erythema as well as some venous sta sis changes. NEUROLOGIC: The exam is grossly nonfocal. LABORATORY RESULTS: Sodium is 139, potassium is 3.4, chloride is 101, CO2 is 26, BUN of 10, creatini ne is 0.82, and glucose is 105. White blood cell count is 19.7, hemoglobin is 13.4, hematocrit is 42 .5, and platelet count is 171. ASSESSMENT: This is a pleasant 62-year-old female, who presents to the emergency room with the acute onset of shortness of breath. She also has low grade fever, leukocytosis, and an infiltrate on ches t x-ray. It is noted that she was recently hospitalized for chronic obstructive pulmonary disease ex acerbation and pneumonia and was seen by Pulmonology. Given that she has recurrence of her symptoms relatively soon, we will go ahead and consult Pulmonology as well. Also, she has a new left pleural effusion, no known history of heart failure and her echo approximately a year ago showed a normal eje ction fraction of approximately 70% and no mention of any diastolic dysfunction; therefore, we will c onsult Pulmonary to see if this could possibly be a parapneumonic effusion. PLAN: 1. We will treat her empirically for community-acquired pneumonia since she has been out of the hosp ital greater than 3 months and we will give a dose of Lasix to see if this will help with the pleural effusion and again consult Pulmonology for further recommendations. We will also place her on DuoNe bs as tolerated and supplemental oxygen. A Prabhakar catheter will be placed to help monitor volume stat us and her ins and outs. 2. For hypertension, we will continue her usual home medications. These of course will need to be r econciled with her previous medications to make sure these are correct and then restart as indicated. 3. Obstructive sleep apnea. She can continue her usual settings for CPAP/BiPAP at night. 4. History of deep venous thrombosis. We will start her back on Coumadin and monitor her INRs caref ully. 5. The patient will be placed on gastrointestinal prophylaxis.
[2017-10-11 18:37] LABS: Troponin I Less than 0.010 ng/mL (< 0.028)
[2017-10-11] MEDS: Acetaminophen 325 MG TAB PO PRN (19:17)
[2017-10-11] MEDS ORDERED: Vancomycin HCl 1 GM in Premix Bag 1 BAG IVPB SCH (21:00)
[2017-10-11] MEDS: Famotidine 20 MG TAB PO SCH (22:02)
[2017-10-11] MEDS: Docusate 100 MG CAP PO SCH (22:02)
[2017-10-12 05:20] LABS: INR-International Normal Ratio 1.7; Prothrombin Time 20.5 SEC (12.0-14.7)
[2017-10-12 05:25] LABS: #Monocytes 0.9 thou/uL (0.11-0.59); #Neutrophils 12.7 thou/uL (1.40-6.50); %Basophils 0.2 % (0.0-1.0); %Eosinophils 0.2 % (0.0-10.0); %Lymphocytes 6.6 % (21.0-51.0); %Monocytes 5.8 % (0.0-10.0); %Neutrophils 87.2 % (42.0-75.0); Hemoglobin 12.2 g/dL (12.0-16.0); Mean Corpuscular HGB CONC 31.6 g/dL (32.0-36.0); Mean Corpuscular Hemoglobin 28.8 pg (27.0-31.0); Mean Corpuscular Volume 91.1 fl (81.0-99.0); Mean Platelet Volume 7.8 fL (7.4-10.4); Platelet Count 177 thou/uL (130-400); RBC Distribution Width 13.9 % (11.5-14.5); Red Blood Cell (RBC) Count 4.24 mill/uL (4.20-5.40); White Blood Cell (WBC) Count 14.6 thou/uL (4.8-10.8)
[2017-10-12 05:33] LABS: Anion Gap 12 mmol/L (10-20); BUN (Urea Nitrogen) 12 mg/dL (9.8-20.1); Calc. Creatinine Clearance 166 mL/min (70-130); Calcium 8.7 mg/dL (7.8-10.44); Carbon Dioxide 26 mmol/L (22-29); Chloride 110 mmol/L (98-107); Estimated GFR-MDRD 78; Glucose 148 mg/dL (70-105); Potassium 3.6 mmol/L (3.5-5.1); Sodium 144 mmol/L (136-145)
[2017-10-12] MEDS: Docusate 100 MG CAP PO SCH ×2 (09:35→21:55)
[2017-10-12] MEDS: Famotidine 20 MG TAB PO SCH ×2 (09:35→21:54)
[2017-10-12] MEDS: Furosemide 40 MG/4 ML VIAL SLOW IVP SCH (09:35)
[2017-10-12] MEDS ORDERED: Sterile Water 10 ML ONE (09:39)
--- NOTE | 2017-10-12 10:14 | PDOC.PN ---
- Subjective Encounter Start Date: 10/12/17 Encounter Start Time: 10:12 Ms. Rojas says she feels a bit better today. She is less short of breath. - Objective Resuscitation Status: Resuscitation Status FULL:Full Resuscitation MAR Reviewed: Yes Vital Signs & Weight: Vital Signs (12 hours) Temp Pulse Resp BP Pulse Ox 10/12/17 08:13 97 F L 102 H 22 H 111/83 99 10/12/17 08:04 104 H 24 H 10/12/17 04:37 98.7 F 95 17 151/98 H 94 L 10/12/17 00:51 101 H 18 Weight Weight 294 lb 8 oz I&O: 10/11/17 10/12/17 10/13/17 06:59 06:59 06:59 Intake Total 740 Output Total 1250 Balance -510 Result Diagrams: 10/12/17 04:20 10/12/17 04:20 Phys Exam - Physical Examination HEENT: PERRLA Respiratory: wheezing present + bilaterally wheezing somewhat decreased from yesterday Cardiovascular: RRR, no significant murmur, no rub Gastrointestinal: soft, non-tender, positive bowel sounds Musculoskeletal: edema present trace edema Neurological: non-focal Dx/Plan (1) Pneumonia Code(s): J18.9 - PNEUMONIA, UNSPECIFIED ORGANISM Status: Acute (2) Pleural effusion Code(s): J90 - PLEURAL EFFUSION, NOT ELSEWHERE CLASSIFIED Status: Acute (3) Acute and chronic respiratory failure Code(s): J96.20 - ACUTE AND CHR RESP FAILURE, UNSP W HYPOXIA OR HYPERCAPNIA Status: Acute (4) COPD with exacerbation Code(s): J44.1 - CHRONIC OBSTRUCTIVE PULMONARY DISEASE W (ACUTE) EXACERBATION Status: Acute (5) Morbid obesity with BMI of 45.0-49.9, adult Code(s): E66.01 - MORBID (SEVERE) OBESITY DUE TO EXCESS CALORIES; Z68.42 - BODY MASS INDEX (BMI) 45.0-49.9, ADULT Status: Acute (6) NICK (obstructive sleep apnea) Code(s): G47.33 - OBSTRUCTIVE SLEEP APNEA (ADULT) (PEDIATRIC) Status: Chronic Comment: on cpap (7) Hypertension Code(s): I10 - ESSENTIAL (PRIMARY) HYPERTENSION Status: Chronic (8) DVT of lower extremity, bilateral Code(s): I82.403 - ACUTE EMBOLISM AND THOMBOS UNSP DEEP VEINS OF LOW EXTRM, BI Status: Chronic - Plan * Pneumonia- ? Community Acquired- Continue Azithromycin and Vancomycin ( antibiotic choice is limited due to her drug allergies) * Will await further recommendations from Pulmonary Medicine * Left Pleural effusion- ? parapneumonic effusion vs. CHF- await further recommendations * COPD - she is breathing a bit better today- continue IV steroids, and Duonebs * HTN- blood pressure is stable.
[2017-10-12] MEDS ORDERED: Cyclobenzaprine 10 MG TAB PO PRN (10:18)
[2017-10-12] MEDS ORDERED: Docusate 100 MG CAP PO PRN (10:18)
[2017-10-12] MEDS ORDERED: Polyethylene Glycol 3350 17 GM Packet PO PRN (10:18)
[2017-10-12] MEDS ORDERED: ALPRAZolam 0.25 MG TAB PO PRN (10:18)
[2017-10-12] MEDS ORDERED: Temazepam 15 MG CAP PO PRN (11:00)
[2017-10-12] MEDS ORDERED: Azithromycin 500 MG in Sodium Chloride 0.9% 250 ML 250 ML IVPB SCH (14:00)
[2017-10-12] MEDS ORDERED: Potassium Chloride 20 MEQ TAB PO SCH (15:30)
[2017-10-12] MEDS ORDERED: Oseltamivir 75 MG CAP PO SCH (16:00)
[2017-10-12] MEDS: Warfarin Sodium 3 MG TAB PO SCH (16:16)
--- NOTE | 2017-10-12 16:58 | CON ---
DATE OF CONSULTATION: 10/12/2017 SERVICE: Pulmonary Medicine. REASON FOR CONSULTATION: COPD exacerbation. HISTORY OF PRESENT ILLNESS: The patient is a 62-year-old white female with past medical history significant for morbid obesity, obstructive sleep apnea, and steroid dependent asthma. She was in her usual state of health until Thursday when she had onset of fevers, cough, congestion, headache, achy muscles. She presented to the Emergency Department. Rapid flu was unremarkable. Ultimately, she was put on some antibiotics and treated for COPD exacerbation/ asthma attack. The chest x-ray also suggested there was some evidence of volume overload. She had noted some increasing lower extremity swelling which is now resolved. She got a couple doses of Lasix starting yesterday and today and feels much improved over the last 24 hours. Nursing reports no events. Otherwise, she is returning to her usual state of health and has no specific complaints. PAST MEDICAL HISTORY: 1. Asthma. 2. Morbid obesity. 3. Obstructive sleep apnea. 4. Hypertension. 5. Dyslipidemia. 6. Gastroesophageal reflux disease. 7. Chronic hypoxic respiratory failure. 8. Osteoarthritis. 9. Polycystic kidney disease. 10. History of DVT. PAST SURGICAL HISTORY: 1. Hysterectomy. 2. Colon resection. 3. Kidney stone extraction. 4. Ganglion cyst removal. 5. Hernia repair. 6. Spine surgery for ruptured disk. 7. Liver mass surgery. ALLERGIES: PENICILLIN, ZOFRAN, CEPHALOSPORINS, CIPRO, CLINDAMYCIN. SOCIAL HISTORY: Negative for alcohol, tobacco or illicit drug use. She denies any current exposures to chemicals, dust, asbestos, or tuberculosis. FAMILY HISTORY: Noncontributory. HOME MEDICATIONS: List of inpatient medications were reviewed. A couple of small updates were made. PHYSICAL EXAMINATION: VITAL SIGNS: Afebrile, T-max of 99.9. Pulse 96, blood pressure 153/72, respirations 20, saturation 94% on 3 liters nasal cannula. GENERAL: Patient is awake, alert, in no apparent distress. LUNGS: Reduced air entry. There is a prolonged expiratory phase with both crackles and wheezing identified. No rhonchi. HEART: Normal rate, regular. ABDOMEN: Soft, nontender, nondistended, bowel sounds positive. MUSCULOSKELETAL: No cyanosis or clubbing. There is trace pitting in the bilateral lower extremities, which is a little bit worse on the right. GENITOURINARY: Prabhakar catheter in place. NEUROLOGIC: Grossly nonfocal. LABORATORY DATA: WBC 14.6, hemoglobin 12.2, platelets 177,000. INR 1.7. PH 7.41, pCO2 of 39, pO2 of 70 corresponding to saturation of 95% on 4 liters nasal cannula at that time. Basic metabolic profile is completely unremarkable. Lactate is negative, liver function studies were unremarkable. Troponin is negative x3. CK-MB is also unremarkable. Urinalysis is largely unremarkable except for ketones and blood despite having negative red blood cells. Influenza A and B is negative. Blood cultures negative x2. Urine culture negative to date. IMAGING: Chest x-ray demonstrates soft tissue attenuation. There is some blunting of the right costophrenic angle, possible. No overt consolidating changes are identified, but I agree that there is some prominence to the interstitium and things at borderline fluffy infiltrates. The pleural parenchymal changes are more evident in the left lung. Areas of atelectasis are identified. ASSESSMENT: 1. Asthma with acute exacerbation. 2. Acute on chronic hypoxic respiratory failure. 3. Morbid obesity. 4. Pleural parenchymal abnormality on chest x-ray, possibly consistent with an infiltrate plus or minus effusion. 5. Viral prodrome. PLAN: We will obtain a respiratory virus pathogen panel. Because the patient had multiple systemic features consistent with a viral prodrome and possible influenza, I am going to get a respiratory virus panel, and also empirically put her on Tamiflu. If the PCR is negative, this can simply be discontinued tomorrow morning. Otherwise, we will continue antibiotics, and nebulized medication. She is requesting that we increase the frequency to q.4 h, which is reasonable. Steroids will be increased to 40 mg twice daily as the patient is on chronic steroids in the outpatient setting and frequently asthmatic, needs slightly bigger doses. I have encouraged the patient to increase mobility as tolerated today and tomorrow. We will see if we can get her into a chair 3 times daily while eating. Pulmonary Critical Care will continue to follow but Dr. Caro will assume care in the morning. 70 minutes have been devoted to this patient in various activities. I personally reviewed all imaging studies and laboratory data noted within this document. For at least half of this time, I was interacting with the patient at the bedside or coordinating care with the care team. For the remainder of the time I was immediately available to the patient in the hospital unit. THA
[2017-10-12] MEDS ORDERED: Budesonide 0.25 MG/2 ML NEB NEB SCH (18:30)
[2017-10-12] MEDS: Oseltamivir 75 MG CAP PO SCH (21:55)
[2017-10-12] MEDS: Montelukast Sodium 10 mg Tablet PO SCH (21:55)
[2017-10-13 05:23] LABS: #Lymphocytes 0.7 thou/uL (1.20-3.40); #Monocytes 0.4 thou/uL (0.11-0.59); #Neutrophils 13.4 thou/uL (1.40-6.50); %Basophils 0.1 % (0.0-1.0); %Eosinophils 0.3 % (0.0-10.0); %Lymphocytes 4.7 % (21.0-51.0); %Monocytes 2.7 % (0.0-10.0); %Neutrophils 92.2 % (42.0-75.0); Mean Corpuscular HGB CONC 32.4 g/dL (32.0-36.0); Mean Corpuscular Hemoglobin 29.7 pg (27.0-31.0); Mean Corpuscular Volume 91.6 fl (81.0-99.0); Mean Platelet Volume 7.8 fL (7.4-10.4); Platelet Count 179 thou/uL (130-400); RBC Distribution Width 13.7 % (11.5-14.5); Red Blood Cell (RBC) Count 4.05 mill/uL (4.20-5.40); White Blood Cell (WBC) Count 14.6 thou/uL (4.8-10.8)
[2017-10-13 05:28] LABS: INR-International Normal Ratio 1.6; Prothrombin Time 19.7 SEC (12.0-14.7)
[2017-10-13 05:40] LABS: Anion Gap 11 mmol/L (10-20); BUN (Urea Nitrogen) 19 mg/dL (9.8-20.1); Calc. Creatinine Clearance 156 mL/min (70-130); Calcium 8.8 mg/dL (7.8-10.44); Carbon Dioxide 24 mmol/L (22-29); Chloride 107 mmol/L (98-107); Estimated GFR-MDRD 72; Glucose 149 mg/dL (70-105); Potassium 4.4 mmol/L (3.5-5.1); Sodium 138 mmol/L (136-145)
[2017-10-13] MEDS: Oseltamivir 75 MG CAP PO SCH ×2 (08:17→21:11)
[2017-10-13] MEDS: Multivit, Therapeutic 1 TAB PO SCH (08:17)
[2017-10-13] MEDS: Potassium Chloride 20 MEQ TAB PO SCH (08:17)
[2017-10-13] MEDS: Furosemide 40 MG/4 ML VIAL SLOW IVP SCH (08:18)
[2017-10-13] MEDS: Famotidine 20 MG TAB PO SCH ×2 (08:18→21:11)
[2017-10-13] MEDS: PARoxetine 20 MG TAB PO SCH (08:19)
[2017-10-13] MEDS: Docusate 100 MG CAP PO SCH ×2 (08:23→21:11)
[2017-10-13] MEDS: Lactinex Tablet PO SCH (09:32)
[2017-10-13] MEDS: Acetaminophen 325 MG TAB PO PRN ×2 (09:38→21:48)
[2017-10-13] MEDS ORDERED: cloNIDine 0.1 MG TAB PO PRN (10:52)
--- NOTE | 2017-10-13 11:03 | PDOC.PN ---
- Subjective Encounter Start Date: 10/13/17 Encounter Start Time: 10:59 - Objective Resuscitation Status: Resuscitation Status FULL:Full Resuscitation MAR Reviewed: Yes Vital Signs & Weight: Vital Signs (12 hours) Temp Pulse Resp BP Pulse Ox 10/13/17 08:00 98.8 F 75 14 183/128 H 96 10/13/17 04:00 98.1 F 86 20 130/85 93 L 10/13/17 02:15 94 16 95 10/12/17 23:40 95 18 95 Weight Weight 294 lb 8 oz I&O: 10/12/17 10/13/17 10/14/17 06:59 06:59 06:59 Intake Total 1900 Output Total 3675 Balance -1775 Result Diagrams: 10/13/17 04:34 10/13/17 04:34 Phys Exam - Physical Examination HEENT: PERRLA Respiratory: no rales Mild expiratory wheeze Cardiovascular: RRR, no significant murmur Gastrointestinal: soft, non-tender, positive bowel sounds Musculoskeletal: edema present trace edema Dx/Plan (1) Pneumonia Code(s): J18.9 - PNEUMONIA, UNSPECIFIED ORGANISM Status: Acute (2) Pleural effusion Code(s): J90 - PLEURAL EFFUSION, NOT ELSEWHERE CLASSIFIED Status: Acute (3) Acute and chronic respiratory failure Code(s): J96.20 - ACUTE AND CHR RESP FAILURE, UNSP W HYPOXIA OR HYPERCAPNIA Status: Acute (4) COPD with exacerbation Code(s): J44.1 - CHRONIC OBSTRUCTIVE PULMONARY DISEASE W (ACUTE) EXACERBATION Status: Acute (5) Morbid obesity with BMI of 45.0-49.9, adult Code(s): E66.01 - MORBID (SEVERE) OBESITY DUE TO EXCESS CALORIES; Z68.42 - BODY MASS INDEX (BMI) 45.0-49.9, ADULT Status: Acute (6) NICK (obstructive sleep apnea) Code(s): G47.33 - OBSTRUCTIVE SLEEP APNEA (ADULT) (PEDIATRIC) Status: Chronic Comment: on cpap (7) Hypertension Code(s): I10 - ESSENTIAL (PRIMARY) HYPERTENSION Status: Chronic (8) DVT of lower extremity, bilateral Code(s): I82.403 - ACUTE EMBOLISM AND THOMBOS UNSP DEEP VEINS OF LOW EXTRM, BI Status: Chronic - Plan * Pneumonia- possibly viral- will continue the current antibiotics until further recommended by Pulmonary * HTN- blood pressure is slightly elevated today- will continue to monitor the trend on her current home regimen, and have PRN medication available * History of DVT- INR is still subtherapeutic- will increase the coumadin dose to 5 mg a day .
--- NOTE | 2017-10-13 11:10 | RAD ---
CHEST TWO VIEWS: History: Follow up effusion. Comparison: 10-11-17 FINDINGS: Small left layering effusion is present. There is a right basilar airspace opacity. Cardiac silhouett e and mediastinal contours are similar. IMPRESSION: Slight decreased left layering pleural effusion. Remainder of the findings are unchanged. POS: TPC
[2017-10-13] MEDS: Warfarin Sodium 3 MG TAB PO SCH (16:13)
--- NOTE | 2017-10-13 16:25 | PRG ---
DATE OF SERVICE: 10/13/2017 SUBJECTIVE: Ms. Rojas says she is feeling much better. The nurse is having trouble getting IV acce ss, so recommend we just stop her IV and switch to p.o. meds. She appears to be clinically improving . She says she is 100% better than she was at Thursday night. OBJECTIVE: VITAL SIGNS: Heart rate was fluctuating between 83 and 103 now, respiratory rate 20, blood pressures are 140/101, 135/85 earlier. I am not sure if they are using a large arm for her. LUNGS: Remarkable for faint wheezes, but I have certainly treated her as an outpatient with bronchos pasm that is mild. I think she can be transferred out to telemetry. We will switch her p.o. meds. Hopefully, in 24-48 hours, she should be a candidate to go home.
[2017-10-13] MEDS: Guaifenesin DM 100-10/5 ML UDCUP PO PRN (16:47)
[2017-10-13] MEDS: Montelukast Sodium 10 mg Tablet PO SCH (21:11)
[2017-10-14 05:48] LABS: INR-International Normal Ratio 1.7; Prothrombin Time 20.3 SEC (12.0-14.7)
[2017-10-14] MEDS: Famotidine 20 MG TAB PO SCH ×2 (09:53→20:26)
[2017-10-14] MEDS: Lactinex Tablet PO SCH (09:53)
[2017-10-14] MEDS: Potassium Chloride 20 MEQ TAB PO SCH (09:53)
[2017-10-14] MEDS: predniSONE 20 MG TAB PO SCH (09:53)
[2017-10-14] MEDS: Docusate 100 MG CAP PO SCH ×2 (09:53→20:26)
[2017-10-14] MEDS: Oseltamivir 75 MG CAP PO SCH (09:54)
[2017-10-14] MEDS: PARoxetine 20 MG TAB PO SCH (09:54)
[2017-10-14] MEDS: Azithromycin 250 MG TAB PO SCH (09:54)
[2017-10-14] MEDS: Multivit, Therapeutic 1 TAB PO SCH (09:56)
[2017-10-14] MEDS: Guaifenesin DM 100-10/5 ML UDCUP PO PRN (10:02)
--- NOTE | 2017-10-14 11:45 | PDOC.PN ---
- Subjective Encounter Start Date: 10/14/17 Encounter Start Time: 11:43 Ms. Rojas does not have any complaints. She says she feels much better. She has walked some with PT. - Objective Resuscitation Status: Resuscitation Status FULL:Full Resuscitation MAR Reviewed: Yes Vital Signs & Weight: Vital Signs (12 hours) Temp Pulse Resp BP BP Pulse Ox 10/14/17 11:41 74 18 94 L 10/14/17 09:00 98.1 F 84 20 132/93 H 98 10/14/17 07:27 126/80 10/14/17 06:31 75 16 95 10/14/17 04:00 96 132/89 10/14/17 02:46 73 16 96 10/14/17 00:30 90 18 152/102 H Weight Weight 294 lb 8 oz I&O: 10/13/17 10/14/17 10/15/17 06:59 06:59 06:59 Intake Total 2760 420 Output Total 4875 1250 Balance -9785 -140 Result Diagrams: 10/13/17 04:34 10/13/17 04:34 Phys Exam - Physical Examination HEENT: PERRLA Respiratory: wheezing present + mild expiratory wheeze Cardiovascular: RRR, no significant murmur Gastrointestinal: soft, non-tender, positive bowel sounds Musculoskeletal: edema present trace pedal edema Dx/Plan (1) Pneumonia Code(s): J18.9 - PNEUMONIA, UNSPECIFIED ORGANISM Status: Acute (2) Pleural effusion Code(s): J90 - PLEURAL EFFUSION, NOT ELSEWHERE CLASSIFIED Status: Acute (3) Acute and chronic respiratory failure Code(s): J96.20 - ACUTE AND CHR RESP FAILURE, UNSP W HYPOXIA OR HYPERCAPNIA Status: Acute (4) COPD with exacerbation Code(s): J44.1 - CHRONIC OBSTRUCTIVE PULMONARY DISEASE W (ACUTE) EXACERBATION Status: Acute (5) Morbid obesity with BMI of 45.0-49.9, adult Code(s): E66.01 - MORBID (SEVERE) OBESITY DUE TO EXCESS CALORIES; Z68.42 - BODY MASS INDEX (BMI) 45.0-49.9, ADULT Status: Acute (6) NICK (obstructive sleep apnea) Code(s): G47.33 - OBSTRUCTIVE SLEEP APNEA (ADULT) (PEDIATRIC) Status: Chronic Comment: on cpap (7) Hypertension Code(s): I10 - ESSENTIAL (PRIMARY) HYPERTENSION Status: Chronic (8) DVT of lower extremity, bilateral Code(s): I82.403 - ACUTE EMBOLISM AND THOMBOS UNSP DEEP VEINS OF LOW EXTRM, BI Status: Chronic - Plan * Acute on chronic respiratory failure with Hypoxemia- improving * She has been transitioned to oral Antibiotics, and steroids * Respiratory culture was negative- can discontinue Tamiflu * HTN- blood pressure is much improved this morning * Continue to encourage ambulation * Possibly home soon.
[2017-10-14] MEDS: Warfarin Sodium 3 MG TAB PO SCH (17:15)
--- NOTE | 2017-10-14 19:30 | PRG ---
DATE OF SERVICE: 10/14/2017 SUBJECTIVE: Bob is improved. Her INR is 1.7 today. OBJECTIVE: VITAL SIGNS: Stable. Heart rate is in the 80s. She is afebrile, respiratory rate is 18, oximetry i s 97, blood pressure 179/101. LUNGS: Remarkable for diffuse wheezes. HEART: Regular rhythm. ABDOMEN: Soft. IMPRESSION: 1. Anticoagulation for deep vein thrombosis/pulmonary embolism in the past. 2. Chronic obstructive pulmonary disease exacerbation. 3. Acute on chronic respiratory failure with chronic hypoxemia on home O2. 4. Obesity and extreme deconditioning. She had not walked very far in several years. 5. History of sleep apnea. 6. History of tracheostomy with respiratory failure. 7. Hypertension. 8. History of polycystic kidney disease. PLAN: Continue current care. She is stable to move out to the telemetry unit. Hopefully, she is stable to go home in 24-48 hours. I have asked her to let us know if she feels like she is well enough to go to the house.
[2017-10-14] MEDS: Furosemide 40 MG/4 ML VIAL SLOW IVP SCH (20:25)
[2017-10-14] MEDS: Montelukast Sodium 10 mg Tablet PO SCH (20:26)
[2017-10-15 04:42] LABS: INR-International Normal Ratio 1.9
[2017-10-15] MEDS: Azithromycin 250 MG TAB PO SCH (09:00)
[2017-10-15] MEDS: Docusate 100 MG CAP PO SCH ×2 (09:01→20:31)
[2017-10-15] MEDS: Famotidine 20 MG TAB PO SCH ×2 (09:01→20:31)
[2017-10-15] MEDS: predniSONE 20 MG TAB PO SCH (09:01)
[2017-10-15] MEDS: Potassium Chloride 20 MEQ TAB PO SCH (09:01)
[2017-10-15] MEDS: PARoxetine 20 MG TAB PO SCH (09:01)
[2017-10-15] MEDS: Multivit, Therapeutic 1 TAB PO SCH (09:02)
[2017-10-15] MEDS: Lactinex Tablet PO SCH (09:02)
[2017-10-15] MEDS: Furosemide 40 MG TAB PO SCH (09:02)
--- NOTE | 2017-10-15 10:32 | PDOC.PN ---
- Subjective Encounter Start Date: 10/15/17 Encounter Start Time: 10:31 Ms. Rojas is beginning to feel a little better. she has ambulated some without difficulty. She notes the elevated blood pressure after taking Robitussin. - Objective Resuscitation Status: Resuscitation Status FULL:Full Resuscitation MAR Reviewed: Yes Vital Signs & Weight: Vital Signs (12 hours) Temp Pulse Resp BP Pulse Ox 10/15/17 04:53 97.5 F L 78 20 137/82 97 10/15/17 02:36 78 16 96 Weight Weight 294 lb 8 oz I&O: 10/14/17 10/15/17 10/16/17 06:59 06:59 06:59 Intake Total 1420 Output Total 6900 Balance -5480 Result Diagrams: 10/13/17 04:34 10/13/17 04:34 Phys Exam - Physical Examination HEENT: PERRLA Respiratory: wheezing present, clear to auscultation bilateral Cardiovascular: RRR, no significant murmur Gastrointestinal: soft, non-tender, positive bowel sounds Musculoskeletal: edema present 1+ edema Dx/Plan (1) Pneumonia Code(s): J18.9 - PNEUMONIA, UNSPECIFIED ORGANISM Status: Acute (2) Pleural effusion Code(s): J90 - PLEURAL EFFUSION, NOT ELSEWHERE CLASSIFIED Status: Acute (3) Acute and chronic respiratory failure Code(s): J96.20 - ACUTE AND CHR RESP FAILURE, UNSP W HYPOXIA OR HYPERCAPNIA Status: Acute (4) COPD with exacerbation Code(s): J44.1 - CHRONIC OBSTRUCTIVE PULMONARY DISEASE W (ACUTE) EXACERBATION Status: Acute (5) Morbid obesity with BMI of 45.0-49.9, adult Code(s): E66.01 - MORBID (SEVERE) OBESITY DUE TO EXCESS CALORIES; Z68.42 - BODY MASS INDEX (BMI) 45.0-49.9, ADULT Status: Acute (6) NICK (obstructive sleep apnea) Code(s): G47.33 - OBSTRUCTIVE SLEEP APNEA (ADULT) (PEDIATRIC) Status: Chronic Comment: on cpap (7) Hypertension Code(s): I10 - ESSENTIAL (PRIMARY) HYPERTENSION Status: Chronic (8) DVT of lower extremity, bilateral Code(s): I82.403 - ACUTE EMBOLISM AND THOMBOS UNSP DEEP VEINS OF LOW EXTRM, BI Status: Chronic - Plan * Acute on chronic respiratory failure- improved * Continue Azithromycin, and Continue Tamiflu * HTN- blood pressure has been labile, but overall acceptable- continue the current regimen. * History of DVT- INR is 1.9, continue coumadin, and monitor INR * NICK- stable
[2017-10-15] MEDS: Warfarin Sodium 3 MG TAB PO SCH (17:26)
--- NOTE | 2017-10-15 17:50 | PRG ---
DATE OF SERVICE: 10/15/2017 SUBJECTIVE: Ms. Rojas did well overnight. She has no new complaints. She is still wheezing. She i s improving a little bit every day. OBJECTIVE: VITAL SIGNS: She is afebrile. Heart rate 91, respiratory rate 18, oximetry 95 on 2 liters, blood pr essure 131/95 earlier. LUNGS: Remarkable for diffuse mild wheezes. HEART: Regular rhythm. LABORATORY DATA: No new labs. IMPRESSION: 1. Chronic obstructive pulmonary disease exacerbation, clinically improved. 2. Basilar mucous plugging versus early pneumonia, on azithromycin. 3. Anticoagulation for deep venous thrombosis in the past, on Zithromax. Her protime will have to b e monitored closely as an outpatient.
[2017-10-15] MEDS: Montelukast Sodium 10 mg Tablet PO SCH (20:31)
[2017-10-16 05:27] LABS: INR-International Normal Ratio 1.9; Prothrombin Time 22.4 SEC (12.0-14.7)
[2017-10-16 07:35] VITALS: BP 130/85; TEMP 98.4
[2017-10-16] MEDS: Lactinex Tablet PO SCH (09:17)
[2017-10-16] MEDS: Potassium Chloride 20 MEQ TAB PO SCH (09:17)
[2017-10-16] MEDS: Furosemide 40 MG TAB PO SCH (09:17)
[2017-10-16] MEDS: predniSONE 20 MG TAB PO SCH (09:17)
[2017-10-16] MEDS: Azithromycin 250 MG TAB PO SCH (09:17)
[2017-10-16] MEDS: Docusate 100 MG CAP PO SCH (09:18)
[2017-10-16] MEDS: Famotidine 20 MG TAB PO SCH (09:18)
[2017-10-16] MEDS: PARoxetine 20 MG TAB PO SCH (09:18)
[2017-10-16] MEDS: Multivit, Therapeutic 1 TAB PO SCH (09:18)
--- NOTE | 2017-10-16 10:17 | PDOC.PN ---
- Subjective Encounter Start Date: 10/16/17 Encounter Start Time: 07:30 -: old records requested/rev Patient seen and examined. No new complaints. No overnight events - Objective Resuscitation Status: Resuscitation Status FULL:Full Resuscitation MAR Reviewed: Yes Vital Signs & Weight: Vital Signs (12 hours) Temp Pulse Resp BP Pulse Ox 10/16/17 07:57 97 10/16/17 07:54 86 16 10/16/17 07:25 98.4 F 86 20 130/85 96 10/16/17 03:16 98.2 F 81 20 144/101 H 94 L 10/16/17 02:48 96 10/15/17 23:32 95 Weight Weight 294 lb 8 oz I&O: 10/15/17 10/16/17 10/17/17 06:59 06:59 06:59 Intake Total 1420 1950 Output Total 6900 4225 Balance -2473 -3133 Result Diagrams: 10/13/17 04:34 10/13/17 04:34 EKG Reviewed by me: Yes Phys Exam - Physical Examination Constitutional: NAD HEENT: PERRLA, moist MMs, sclera anicteric Neck: no JVD, supple Respiratory: no wheezing, no rales, no rhonchi Cardiovascular: RRR, no significant murmur, no rub Gastrointestinal: soft, non-tender, no distention, positive bowel sounds Musculoskeletal: no edema, pulses present Neurological: non-focal, normal sensation, moves all 4 limbs Psychiatric: normal affect, A&O x 3 Skin: no rash, normal turgor Dx/Plan (1) Acute and chronic respiratory failure Code(s): J96.20 - ACUTE AND CHR RESP FAILURE, UNSP W HYPOXIA OR HYPERCAPNIA Status: Acute (2) COPD with exacerbation Code(s): J44.1 - CHRONIC OBSTRUCTIVE PULMONARY DISEASE W (ACUTE) EXACERBATION Status: Acute (3) Pleural effusion Code(s): J90 - PLEURAL EFFUSION, NOT ELSEWHERE CLASSIFIED Status: Acute (4) Pneumonia Code(s): J18.9 - PNEUMONIA, UNSPECIFIED ORGANISM Status: Acute (5) Anxiety and depression Code(s): F41.9 - ANXIETY DISORDER, UNSPECIFIED; F32.9 - MAJOR DEPRESSIVE DISORDER, SINGLE EPISODE, UNSPECIFIED Status: Chronic (6) Chronic anticoagulation Code(s): Z79.01 - [facility] (CURRENT) USE OF ANTICOAGULANTS Status: Chronic (7) GERD (gastroesophageal reflux disease) Code(s): K21.9 - GASTRO-ESOPHAGEAL REFLUX DISEASE WITHOUT ESOPHAGITIS Status: Chronic Qualifiers: Qualified Code(s): K21.0 - Gastro-esophageal reflux disease with esophagitis Comment: has severe ulcerations seen on egd 12/20/16 (8) H/O deep venous thrombosis Code(s): Z86.718 - PERSONAL HISTORY OF OTHER VENOUS THROMBOSIS AND EMBOLISM Status: Chronic (9) Hypertension Code(s): I10 - ESSENTIAL (PRIMARY) HYPERTENSION Status: Chronic (10) Morbid obesity with BMI of 45.0-49.9, adult Code(s): E66.01 - MORBID (SEVERE) OBESITY DUE TO EXCESS CALORIES; Z68.42 - BODY MASS INDEX (BMI) 45.0-49.9, ADULT Status: Chronic (11) NICK (obstructive sleep apnea) Code(s): G47.33 - OBSTRUCTIVE SLEEP APNEA (ADULT) (PEDIATRIC) Status: Chronic Comment: on cpap - Plan cont current plan of care, continue antibiotics * medication reviewed as below * symptomatic treatment * see discharge bradly. Review of Systems - Review of Systems ENT: negative: Ear Pain, Ear Discharge, Nose Pain, Nose Discharge, Nose Congestion, Mouth Pain, Mouth Swelling, Throat Pain, Throat Swelling, Other Respiratory: negative: Cough, Dry, Shortness of Breath, Hemoptysis, SOB with Excertion, Pleuritic Pain, Sputum, Wheezing Cardiovascular: negative: chest pain, palpitations, orthopnea, paroxysmal nocturnal dyspnea, edema, light headedness, other Gastrointestinal: negative: Nausea, Vomiting, Abdominal Pain, Diarrhea, Constipation, Melena, Hematochezia, Other Genitourinary: negative: Dysuria, Frequency, Incontinence, Hematuria, Retention , Other Musculoskeletal: negative: Neck Pain, Shoulder Pain, Arm Pain, Back Pain, Hand Pain, Leg Pain, Foot Pain, Other Skin: negative: Rash, Lesions, Luis, Bruising, Other - Medications/Allergies Allergies/Adverse Reactions: Allergies Allergy/AdvReac Type Severity Reaction Status Date / Time Penicillins Allergy Severe Rash, and Verified 07/26/17 22:39 swelling ondansetron Allergy Intermediate Nausea Verified 07/26/17 22:39 [From Zofran (as hydrochloride)] cefprozil [Cefprozil] Allergy Nausea Verified 07/26/17 22:39 ciprofloxacin Allergy Nausea Verified 07/26/17 22:39 clindamycin Allergy Nausea Verified 07/26/17 22:39 codeine [Codeine] Allergy Nausea Verified 07/26/17 22:39 metronidazole [From Flagyl] Allergy Nausea Verified 07/26/17 22:39 Sulfa (Sulfonamide Allergy Nausea Verified 07/26/17 22:39 Antibiotics) Medications: Current Medications Acetaminophen (Tylenol) 650 mg PO Q4H PRN PRN Reason: Headache/Fever or Pain Last Admin: 10/13/17 21:48 Dose: 650 mg Hydrocodone Bitart/Acetaminophen ([place] 10/325) 1 tab PO Q4H PRN PRN Reason: Moderate Pain (4-6) Hydrocodone Bitart/Acetaminophen ([place] 5/325) 1 tab PO Q4H PRN PRN Reason: Moderate Pain (4-6) Acidophilus (Floranex) 1 tab PO DAILY [facility] Last Admin: 10/16/17 09:17 Dose: 1 tab Albuterol/Ipratropium (Duoneb) 3 ml NEB [id number] PRN PRN Reason: SOB &/or Wheezing Albuterol/Ipratropium (Duoneb) 3 ml NEB [id number] [facility] Last Admin: 10/16/17 07:54 Dose: 3 ml Alprazolam (Xanax) 0.25 mg PO DAILY PRN PRN Reason: Anxiety Azithromycin (Zithromax) 500 mg PO DAILY [facility] Stop: 10/17/17 09:01 Last Admin: 10/16/17 09:17 Dose: 500 mg Clonidine (Catapres) 0.1 mg PO Q4H PRN PRN Reason: Systolic BP > 180 Last Admin: 10/13/17 21:47 Dose: 0.1 mg Cyclobenzaprine HCl (Flexeril) 10 mg PO TID PRN PRN Reason: Muscle Spasm Diltiazem HCl (Cardizem Cd) 180 mg PO DAILY [facility] Last Admin: 10/16/17 09:18 Dose: 180 mg Docusate Sodium (Colace) 100 mg PO BID [facility] Last Admin: 10/16/17 09:18 Dose: Not Given Docusate Sodium (Colace) 100 mg PO DAILY PRN PRN Reason: Constipation Famotidine (Pepcid) 20 mg PO BID [facility] Last Admin: 10/16/17 09:18 Dose: 20 mg Furosemide (Lasix) 40 mg PO DAILY-AC [facility] Last Admin: 10/16/17 09:17 Dose: 40 mg Guaifenesin/Dextromethorphan (Robitussin Dm) 15 ml PO Q6H PRN PRN Reason: Cough Last Admin: 10/14/17 10:02 Dose: 15 ml Haloperidol (Haldol) 0.5 mg PO Q4H PRN PRN Reason: Anxiety/Agitation Hydralazine HCl (Apresoline) 10 mg SLOW IVP Q4H PRN PRN Reason: Systolic BP > 180 Lorazepam (Ativan) 0.5 mg PO Q4H PRN PRN Reason: Anxiety/Agitation Magnesium Hydroxide (Milk Of Magnesium) 30 ml PO DAILYPRN PRN PRN Reason: Constipation Miscellaneous Medication (Pharmacy To Dose) 1 each IVPB PRN PRN PRN Reason: Pharmacy to dose Montelukast Sodium (Singulair) 10 mg PO QPM [facility] Last Admin: 10/15/17 20:31 Dose: 10 mg Multivitamins (Theragran) 1 tab PO DAILY [facility] Last Admin: 10/16/17 09:18 Dose: 1 tab Ondansetron HCl (Zofran Odt) 4 mg PO Q6H PRN PRN Reason: Nausea/Vomiting Paroxetine HCl (Paxil) 10 mg PO DAILY [facility] Last Admin: 10/16/17 09:18 Dose: 10 mg Polyethylene Glycol (Miralax) 17 gm PO DAILY PRN PRN Reason: Constipation Potassium Chloride (K-Dur) 20 meq PO DAILY [facility] Last Admin: 10/16/17 09:17 Dose: 20 meq Prednisone (Prednisone) 40 mg PO QAM-WM [facility] Last Admin: 10/16/17 09:17 Dose: 40 mg Temazepam (Restoril) 30 mg PO HS PRN PRN Reason: Insomnia Warfarin Sodium (Coumadin) 3 mg PO 1700 [facility] Last Admin: 10/15/17 17:26 Dose: 3 mg
--- NOTE | 2017-10-16 10:54 | DIS ---
DATE OF ADMISSION: 10/11/2017 DATE OF DISCHARGE: 10/16/2017 PRIMARY CARE PHYSICIAN: Dr. Telly Rollins. DISCHARGE DISPOSITION: Home. PRIMARY DISCHARGE DIAGNOSES: 1. Acute on chronic respiratory failure with hypoxia. 2. Chronic obstructive pulmonary disease with acute exacerbation. 3. Pneumonia. SECONDARY DISCHARGE DIAGNOSES: Morbid obesity, obstructive sleep apnea, hypertension, history of haider p venous thrombosis and pulmonary embolism, chronic anticoagulation, gastroesophageal reflux disease, anxiety and depression, chronic obstructive pulmonary disease, chronic respiratory failure. PRIMARY PROCEDURE/OPERATION: None. RADIOLOGICAL INVESTIGATION: Chest x-ray on admission showed new left pleural effusion, bibasilar and right middle lobe infiltration. Repeat chest x-ray showed reduction of the effusion. SIGNIFICANT LABORATORY DATA: WBC 14.6, hemoglobin 12.0, platelets 179. INR 1.9, sodium 138, potassi um 4.4, BUN 19, creatinine 0.81, calcium 8.8. Cardiac enzymes negative. LFT normal. Urinalysis nor mal. Blood culture negative. Influenza screen negative. Urine culture negative. Respiratory virus panel negative. DISCHARGE MEDICATIONS: Alprazolam 0.25 mg p.o. daily p.r.n., azithromycin 250 mg p.o. daily for 5 mo re days, Pulmicort nebulization twice daily, Flexeril 10 mg p.o. t.i.d. p.r.n., Cardizem CD 180 mg p. o. daily, Lomotil p.r.n., Colace 100 mg p.o. daily p.r.n., fish oil 1 capsule p.o. daily, Vilas 10 on e tablet q.4 hourly p.r.n., Instaflex 1 capsule p.o. daily, DuoNeb q.6 hourly p.r.n., probiotic 1 cap kristie p.o. daily, Singulair 10 mg p.o. daily, multivitamin 1 tablet p.o. daily, Protonix 40 mg p.o. da kizzy, Paxil 10 mg p.o. daily, MiraLax 17 grams p.o. daily p.r.n., potassium chloride 20 mEq p.o. daily , prednisone 20 mg p.o. daily for 5 days, then 10 mg p.o. daily for 1 week, Phenergan 25 mg p.o. q.6 hourly p.r.n., Imitrex 100 mg twice daily p.r.n., Restoril 30 mg p.o. at bedtime p.r.n., tramadol 50 mg p.o. daily, warfarin 3 mg p.o. daily. CONTRAINDICATIONS: None. CODE STATUS: FULL CODE. INPATIENT ADDICTION PSYCHIATRIST: Dr. Caro was following while in hospital. TEST RESULTS PENDING ON DISCHARGE: None. ALLERGIES: PENICILLIN, ZOFRAN, CIPROFLOXACIN, CLINDAMYCIN, CODEINE. DISCHARGE PLAN: Post hospital, patient will follow up with primary care physician in 1 week. The june stoddard is advised to follow up with Dr. Caro as instructed. HOSPITAL COURSE: A 62-year-old female with above-mentioned medical problems who was admitted by Dr. Bills. Please see her H&P for further details. This patient was presented to the emergency room wi th increasing shortness of breath. She was diagnosed with COPD flareup. During this admission, the patient was found with left pleural effusion and bibasilar and right middle lobe infiltration. She w as treated for pneumonia. Dr. Caro was consulted while in hospital. Patient was treated with IV antibiotic therapy while in hospital with azithromycin and patient was gi yajaira respiratory therapy with DuoNeb and steroid. Upon discharge, we prescribed tapering doses of pre dnisone and 5 more days of oral azithromycin. Dr. Caro saw this patient and he recommended to discharge her home today. Patient is also willing t o go home today. While in hospital, we checked virus panel as well as influenza screen that was nega tive in her blood and urine culture also remained negative. The patient is seen and examined at bedside today. Please see my progress note for today for further details. The patient is medically stable for discharge today. All new medication prescriptions sen t to her pharmacy.
--- NOTE | 2017-10-16 12:45 | PRG ---
DATE OF SERVICE: 10/16/2017 SUBJECTIVE: Patient is doing well overnight. She was examined, still sleeping with CPAP. She is ac tually playing game on her phone with her CPAP on. PHYSICAL EXAMINATION: LUNGS: Completely clear this morning surprisingly. HEART: Regular rhythm. ABDOMEN: Soft. IMPRESSION: Chronic obstructive pulmonary disease exacerbation plus or minus small area of pneumonia . PLAN: Discharge home with slow prednisone taper. She will take 40 until Thursday or Thursday and then go to 20 mg a day. She will see me in 2 weeks.
--- NOTE | 2017-10-17 12:21 | EKG ---
Test Reason : SOB Blood Pressure : / mmHG Vent. Rate : 098 BPM Atrial Rate : 098 BPM P-R Int : 142 ms QRS Dur : 100 ms QT Int : 362 ms P-R-T Axes : 013 -06 024 degrees QTc Int : 462 ms Sinus rhythm with Premature supraventricular complexes Possible Anterior infarct , age undetermined Abnormal ECG Confirmed by BOOM Longoria, PÉREZ ([id number]), web editor MARQUEZ MALDONADO ([id number]) on 10/17/2017 12:21:07 PM Referred By: BOOM Confirmed By:PÉREZ NUR M.D.
== END 2017-10-16 11:23 | disposition home or self-care (01) | DRG 193 ==
LOC: ERS 10:23 → ERHOLD 13:10 → 2NO 17:44
PROVIDERS: ADMIT Internal Medicine; ATTEND Internal Medicine
DX: J18.9 Pneumonia, unspecified organism (principal); J96.21 Acute and chronic respiratory failure with hypoxia; Q61.3 Polycystic kidney, unspecified; J44.0 Chronic obstructive pulmonary disease with (acute) lower respiratory infection; J44.1 Chronic obstructive pulmonary disease with (acute) exacerbation; Z68.42 Body mass index [BMI] 45.0-49.9, adult; E66.01 Morbid (severe) obesity due to excess calories; Z99.81 Dependence on supplemental oxygen; I10 Essential (primary) hypertension; G47.33 Obstructive sleep apnea (adult) (pediatric); F41.9 Anxiety disorder, unspecified; F32.9 Major depressive disorder, single episode, unspecified; K21.9 Gastro-esophageal reflux disease without esophagitis; Z86.718 Personal history of other venous thrombosis and embolism; Z86.711 Personal history of pulmonary embolism; Z88.1 Allergy status to other antibiotic agents; Z88.5 Allergy status to narcotic agent; Z88.0 Allergy status to penicillin; Z79.01 Long term (current) use of anticoagulants; Z79.52 Long term (current) use of systemic steroids; Z79.899 Other long term (current) drug therapy
CPT/HCPCS: 36415; 71045; 71046; 80048; 80053; 81003; 81015; 82553; 82805; 83605; 83735; 83880; 84443; 84484; 85025; 85610; 87040; 87086; 87633; 87798; 93005; 94640; 96365; 96366; 96367; 96375; A4216; G8978-GP-CJ; G8979-GP-CI; G8987-GO-CJ; G8988-GO-CH; J0456; J1200; J1940; J2765; J2920; J3370; J7050; J7506; J7611; J7620

== ENCOUNTER 2017-10-28 12:48 | Outpatient (CLI) | payer MEDICARE, BC ==
--- NOTE | 2017-10-28 13:30 | RAD ---
PA AND LATERAL VIEWS OF CHEST: Date: 10/28/17 HISTORY: Follow-up pneumonia. FINDINGS: Comparison made with exam of 10/22/17. The heart size is enlarged. The aorta is tortuous. Mild pleural parenchymal changes at the lung bases are again seen. No lobar consolidation, pneumothoraces, or large effusions are identified. Compresse d thoracic vertebral bodies are stable. IMPRESSION: Stable exam since 10/22/17. POS: [facility]
== END 2017-10-28 12:49 | disposition home or self-care (01) ==
LOC: RAD 12:48
PROVIDERS: ATTEND Internal Medicine Critical Care Medicine
DX: R06.00 Dyspnea, unspecified (principal)
CPT/HCPCS: 71046

== ENCOUNTER 2017-12-16 21:49 | Emergency (ER) | payer MEDICARE, BC ==
[2017-12-16 23:30] LABS: CKMB 1.8 ng/mL (0-6.6); Troponin I Less than 0.010 ng/mL (< 0.028)
[2017-12-16 23:32] LABS: ALT (SGPT) 27 U/L (8-55); AST (SGOT) 21 U/L (5-34); Albumin 3.7 g/dL (3.5-5.0); Alkaline Phosphatase 77 U/L (40-150); Anion Gap 12 mmol/L (10-20); BUN (Urea Nitrogen) 13 mg/dL (9.8-20.1); Bilirubin, Total 0.9 mg/dL (0.2-1.2); Calc. Creatinine Clearance 0 mL/min (70-130); Calcium 8.6 mg/dL (7.8-10.44); Carbon Dioxide 31 mmol/L (22-29); Chloride 102 mmol/L (98-107); Estimated GFR-MDRD 69; Globulin 2.6 g/dL (2.4-3.5); Glucose 146 mg/dL (70-105); Potassium 3.8 mmol/L (3.5-5.1); Protein, Total 6.3 g/dL (6.0-8.3); Sodium 141 mmol/L (136-145)
[2017-12-16 23:36] LABS: #Basophils 0.1 thou/uL (0.0-0.2); #Eosinphils 0.3 thou/uL (0.0-0.7); #Lymphocytes 3.2 thou/uL (1.20-3.40); #Monocytes 1.1 thou/uL (0.11-0.59); #Neutrophils 10.2 thou/uL (1.40-6.50); %Basophils 0.6 % (0.0-1.0); %Eosinophils 2.2 % (0.0-10.0); %Lymphocytes 21.6 % (21.0-51.0); %Monocytes 7.2 % (0.0-10.0); %Neutrophils 68.4 % (42.0-75.0); Hemoglobin 13.2 g/dL (12.0-16.0); Mean Corpuscular HGB CONC 31.9 g/dL (32.0-36.0); Mean Corpuscular Hemoglobin 28.6 pg (27.0-31.0); Mean Corpuscular Volume 89.5 fl (81.0-99.0); Mean Platelet Volume 7.1 fL (7.4-10.4); Platelet Count 203 thou/uL (130-400); RBC Distribution Width 14.7 % (11.5-14.5); Red Blood Cell (RBC) Count 4.63 mill/uL (4.20-5.40)
--- NOTE | 2017-12-17 00:04 | RAD ---
CHEST ONE VIEW: 12/16/17 HISTORY: 62-year-old female with history of headache and dyspnea and shortness of breath. COMPARISON: 10/28/17. There appear to be progressive alveolar parenchymal changes in the right lower lobe and left lower lo be raising concern for developing pneumonia. There is bilateral vascular congestion. Heart size is at least borderline. IMPRESSION: Progressive alveolar opacity changes in both right and left lower lobes raising concern for the possi bility of developing pneumonia. There certainly could be some component of left lower lobe atelectasi s as well. Cardiomegaly. Somewhat progressive bilateral vascular congestion. Continued short term fol lowup to include upright PA and lateral chest whenever the patient can undergo that study. POS: [facility]
[2017-12-17] MEDS ORDERED: Metoclopramide HCl 10 MG/2 ML VIAL ONE (00:45)
[2017-12-17] MEDS ORDERED: Dexamethasone 10 MG/ML VIAL ONE (00:45)
[2017-12-17] MEDS ORDERED: diphenhydrAMINE 50 MG/ML VIAL ONE (00:45)
[2017-12-17] MEDS ORDERED: Acetaminophen 500 MG TAB ONE (00:45)
[2017-12-17 02:06] LABS: INR-International Normal Ratio 2.5; PTT 35.9 SEC (22.9-36.1)
== END 2017-12-17 02:10 | disposition home or self-care (01) ==
LOC: ERS 21:49
DX: J44.1 Chronic obstructive pulmonary disease with (acute) exacerbation (principal); G43.909 Migraine, unspecified, not intractable, without status migrainosus; G47.33 Obstructive sleep apnea (adult) (pediatric); K21.9 Gastro-esophageal reflux disease without esophagitis; E78.5 Hyperlipidemia, unspecified; I10 Essential (primary) hypertension; M17.0 Bilateral primary osteoarthritis of knee; E66.01 Morbid (severe) obesity due to excess calories; Z86.718 Personal history of other venous thrombosis and embolism; Z87.891 Personal history of nicotine dependence; Z79.899 Other long term (current) drug therapy; Z79.01 Long term (current) use of anticoagulants
CPT/HCPCS: 71045; 80053; 82553; 84484; 85025; 85379; 85610; 85730; 93005; 94640; 96365; 96375; J1100; J1200; J2765; J3475; J7050; J7620

== ENCOUNTER 2018-01-14 11:29 | Outpatient (CLI) | payer MEDICARE, BC ==
--- NOTE | 2018-01-14 13:34 | RAD ---
RADIOGRAPH CHEST 2 VIEWS: DATE: 01/14/18. TIME: 11:44 a.m. HISTORY: A 62-year-old female with J40, bronchitis. Dyspnea. FINDINGS: There is cardiomegaly. The thoracic aorta is tortuous and ectatic. There is no evidence of air space density, pulmonary edema, or pneumothorax. There is no pleural effusion. There are faint mild, ill -defined pulmonary densities at the lung bases, and one at the right apex, which are unchanged compar ed to previous study of 07/24/17, chronic. IMPRESSION: 1) No acute pulmonary findings. 2) Cardiomegaly without congestive heart failure. 3) Ectasia of thoracic aorta. penny [] POS: [facility]
== END 2018-01-14 11:30 | disposition home or self-care (01) ==
LOC: SCSRAD 11:29
PROVIDERS: ATTEND Nurse Practitioner Family
DX: J40 Bronchitis, not specified as acute or chronic (principal); I26.99 Other pulmonary embolism without acute cor pulmonale; I51.7 Cardiomegaly; I77.810 Thoracic aortic ectasia
CPT/HCPCS: 71046

== ENCOUNTER 2018-01-19 21:15 | Inpatient (IN) | payer MEDICARE, BC ==
[2018-01-19] MEDS ORDERED: methylPREDNISolone Sod Succ/PF 125 MG/2 ML VIAL ONE (21:44)
[2018-01-19] MEDS ORDERED: Magnesium Sulfate 2 GM/100 ML BAG ONE (21:44)
[2018-01-19] MEDS ORDERED: Water For Inject, Bacteriostat 30 ML ONE (21:45)
[2018-01-19 21:56] LABS: Band 6 % (5-11); Hemoglobin 12.8 g/dL (12.0-16.0); Lymphocytes 14 % (21-51); MDiff Complete? YES; Mean Corpuscular Volume 90.4 fl (81.0-99.0); Mean Platelet Volume 7.3 fL (7.4-10.4); Monocytes 6 % (0-10); Neutrophil 74 % (42-75); PLT Morphology Comment Appears Adequate; Platelet Count 214 thou/uL (130-400); RBC Distribution Width 14.4 % (11.5-14.5); Red Blood Cell (RBC) Count 4.41 mill/uL (4.20-5.40); White Blood Cell (WBC) Count 13.6 thou/uL (4.8-10.8)
[2018-01-19 22:02] LABS: ALT (SGPT) 18 U/L (8-55); AST (SGOT) 23 U/L (5-34); Albumin 3.9 g/dL (3.5-5.0); Alkaline Phosphatase 64 U/L (40-150); Anion Gap 17 mmol/L (10-20); BUN (Urea Nitrogen) 21 mg/dL (9.8-20.1); Bilirubin, Total 0.4 mg/dL (0.2-1.2); CK (CPK) 53 U/L (29-168); Calc. Creatinine Clearance 0 mL/min (70-130); Calcium 8.9 mg/dL (7.8-10.44); Carbon Dioxide 25 mmol/L (22-29); Chloride 106 mmol/L (98-107); Estimated GFR-MDRD 54; Globulin 3.2 g/dL (2.4-3.5); Glucose 202 mg/dL (70-105); Potassium 4.6 mmol/L (3.5-5.1); Protein, Total 7.1 g/dL (6.0-8.3); Sodium 143 mmol/L (136-145)
[2018-01-19 22:10] LABS: CKMB 1.5 ng/mL (0-6.6); Troponin I Less than 0.010 ng/mL (< 0.028)
--- NOTE | 2018-01-19 22:19 | RAD ---
PORTABLE CHEST: 01/19/18 HISTORY: Shortness of breath. COMPARISON: 12/16/17 and 01/14/18 studies. Heart size is enlarged. There is some bibasilar interstitial lung changes seen. Fairly similar in meir earance to the previous exam. IMPRESSION: Cardiomegaly with bibasilar interstitial lung change, stable as compared to the prior study. POS: [facility]
[2018-01-19] MEDS ORDERED: Azithromycin 500 MG VIAL ONE (23:24)
[2018-01-20] MEDS ORDERED: Acetaminophen 325 MG TAB PO PRN (01:28)
[2018-01-20] MEDS ORDERED: Sodium Chloride 0.9% 1,000 ML IV SCH (01:28)
[2018-01-20 06:46] LABS: INR-International Normal Ratio 2.3; Prothrombin Time 26.1 SEC (12.0-14.7)
[2018-01-20] MEDS ORDERED: Albuterol Sulfate 2.5 mg/3 ml Neb NEB PRN (08:23)
[2018-01-20] MEDS ORDERED: HYDROcodone/Acetaminophen 5/325 mg Tablet PO PRN ×2 (08:24)
[2018-01-20 08:52] LABS: Anion Gap 12 mmol/L (10-20); BUN (Urea Nitrogen) 20 mg/dL (9.8-20.1); Calc. Creatinine Clearance 158 mL/min (70-130); Carbon Dioxide 28 mmol/L (22-29); Chloride 107 mmol/L (98-107); Estimated GFR-MDRD 67; Glucose 183 mg/dL (70-105); Potassium 4.4 mmol/L (3.5-5.1); Sodium 143 mmol/L (136-145)
[2018-01-20 11:58] LABS: Hemoglobin 11.5 g/dL (12.0-16.0); Mean Corpuscular HGB CONC 30.9 g/dL (32.0-36.0); Mean Corpuscular Hemoglobin 28.6 pg (27.0-31.0); Mean Corpuscular Volume 92.7 fl (81.0-99.0); Mean Platelet Volume 8.4 fL (7.4-10.4); Platelet Count 206 thou/uL (130-400); RBC Distribution Width 14.2 % (11.5-14.5); Red Blood Cell (RBC) Count 4.02 mill/uL (4.20-5.40); White Blood Cell (WBC) Count 9.5 thou/uL (4.8-10.8)
[2018-01-20 12:19] LABS: Band 6 % (5-11); Lymphocytes 6 % (21-51); MDiff Complete? YES; Monocytes 1 % (0-10); Neutrophil 87 % (42-75); RBC Morphology Normal
[2018-01-21 05:10] LABS: #Eosinphils 0.1 thou/uL (0.0-0.7); #Lymphocytes 0.6 thou/uL (1.20-3.40); #Monocytes 0.7 thou/uL (0.11-0.59); #Neutrophils 12.5 thou/uL (1.40-6.50); %Eosinophils 0.4 % (0.0-10.0); %Lymphocytes 4.4 % (21.0-51.0); %Monocytes 4.7 % (0.0-10.0); %Neutrophils 90.5 % (42.0-75.0); Hemoglobin 11.5 g/dL (12.0-16.0); Mean Corpuscular HGB CONC 31.2 g/dL (32.0-36.0); Mean Corpuscular Hemoglobin 28.6 pg (27.0-31.0); Mean Corpuscular Volume 91.6 fl (81.0-99.0); Mean Platelet Volume 7.7 fL (7.4-10.4); Platelet Count 210 thou/uL (130-400); RBC Distribution Width 14.1 % (11.5-14.5); Red Blood Cell (RBC) Count 4.04 mill/uL (4.20-5.40); White Blood Cell (WBC) Count 13.9 thou/uL (4.8-10.8)
[2018-01-21 05:27] LABS: Anion Gap 11 mmol/L (10-20); BUN (Urea Nitrogen) 23 mg/dL (9.8-20.1); Calc. Creatinine Clearance 129 mL/min (70-130); Calcium 8.7 mg/dL (7.8-10.44); Carbon Dioxide 28 mmol/L (22-29); Chloride 105 mmol/L (98-107); Estimated GFR-MDRD 53; Glucose 225 mg/dL (70-105); Magnesium 2.2 mg/dL (1.6-2.6); Potassium 4.2 mmol/L (3.5-5.1); Sodium 140 mmol/L (136-145)
--- NOTE | 2018-01-21 06:24 | CON ---
DATE OF CONSULTATION: 01/20/2018 HISTORY OF PRESENT ILLNESS: Ms. Rojas is a 62-year-old female whom I have cared for many years. Man y years ago she presented with respiratory failure secondary to chronic obstructive pulmonary disease and had a several month hospitalization in our Critical Care Unit. Throughout the years she has become more obese and more deconditioned. We are in the hospital with C OPD flare-up, I believe in 09/2016 where she really almost was intubated. Her sister was planning on making her a do not resuscitate patient because she was obtunded and then decided that we would intu antonio her if necessary. She surprisingly survived that admission. She presents this admission with shortness of breath for a week that culminated and being scared and transitioning into the emergency department. She says she feels better than she felt yesterday. At this point, she has been admitted to the Hospitalist Service. PAST MEDICAL HISTORY: Remarkable for; 1. Respiratory failure requiring tracheostomy. 2. History of wound dehiscence in the past. 3. History of tracheostomy in the past. 4. History of PEG in the past, complicated by abdominal wall abscess. 5. 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 6. History of multiple cutaneous Staph infections with MRSA requiring incision and drainage. 7. History of sleep apnea on CPAP. 8. Gastroesophageal reflux disease. 9. History of transient ischemic attack. 10. History of hypertension. 11. History of resection of a liver mass that was benign. 12. History of anxiety and depression. 13. History of lipid disorder. 14. History of herniorrhaphy. 15. History of a ureteral stent. 16. History of back surgery. 17. History of cystoscopy. 18. History of ischemic colitis in 2010. FAMILY HISTORY: Strongly positive for COPD. Mother had COPD and adamantly never wanted to be intuba richard and actually succumb to the COPD flareup prematurely in my opinion. ALLERGIES: She has a history of PENICILLIN, CODEINE, CIPRO, and CEPHALOSPORIN allergies. SOCIAL HISTORY: She is no longer a smoker. She is not a drinker. She has never used drugs. REVIEW OF SYSTEMS: A 10-point is otherwise negative. PHYSICAL EXAMINATION: GENERAL: She is in no distress. She actually says she feels better than she did yesterday, awakened her from a nap, she was not tachypneic. She is not using accessory muscles. VITAL SIGNS: She is afebrile, heart rate 70, respiratory rate 19, blood pressure 150/86. HEENT: Pupils are equal. Sclerae is anicteric. NECK: Supple. LUNGS: Clear. HEART: Regular rhythm. ABDOMEN: Soft and nontender. EXTREMITIES: Without clubbing, cyanosis, or edema. LABORATORY DATA: White count is 9.5, hemoglobin 11.5, platelets 206. Sodium 143, potassium 4.4, chl oride 107, bicarbonate 20, BUN 20, creatinine 0.86. Chest radiographs reviewed slightly underpenetra richard. There is no change compared to old films. IMPRESSION: 1. Chronic obstructive pulmonary disease exacerbation and bronchitis, slowly improving. 2. Obesity and deconditioning. This illness did not allow to do an admission five years ago. She h as become so inactive that she does not tolerate small insults. We will continue with current care. Hopefully, she will be a candidate for discharge by sometime this weekend may be Thursday. This is a 50-minute consult with greater than 50% of the time was spent on the unit coordinating care .
--- NOTE | 2018-01-21 11:46 | PDOC.PN ---
- Subjective Encounter Start Date: 01/21/18 Encounter Start Time: 10:10 Pt did well, BiPAP overnight, took off at 0730 this AM, doing well for last 3 hours. some wheezing, no CP, no N/V/d/C, no f/c, no acute overnight events. Case discussed with Dr Caro face to face all systems reviewed and neg except as above - Objective MAR Reviewed: Yes Vital Signs & Weight: Vital Signs (12 hours) Temp Pulse Resp BP Pulse Ox 01/21/18 11:12 92 22 H 97 01/21/18 08:00 97.9 F 90 22 H 93 L 01/21/18 07:48 97.9 F 90 22 H 148/109 H 93 L 01/21/18 07:31 99 01/21/18 07:29 93 20 99 01/21/18 03:47 97.0 F L 91 12 147/96 H 100 01/21/18 02:33 93 12 100 01/20/18 23:45 97.6 F 104 H 14 132/100 H 100 Weight Weight 320 lb 6.4 oz I&O: 01/20/18 01/21/18 01/22/18 06:59 06:59 06:59 Intake Total 20 2270 Output Total 1200 Balance 20 1070 Result Diagrams: 01/21/18 04:09 01/21/18 04:09 Radiology Reviewed by me: Yes EKG Reviewed by me: Yes Phys Exam - Physical Examination Constitutional: NAD HEENT: PERRLA, moist MMs, sclera anicteric, oral pharynx no lesions Neck: no nodes, no JVD, supple, full ROM prolonged expiration, high-[itched exp wheezes throughout, no rales Cardiovascular: RRR, no significant murmur, no rub Gastrointestinal: soft, non-tender, no distention, positive bowel sounds obese Musculoskeletal: pulses present, edema present Neurological: non-focal, normal sensation, moves all 4 limbs Lymphatic: no nodes Psychiatric: normal affect, A&O x 3 Skin: no rash, normal turgor, cap refill <2 seconds Dx/Plan (1) Acute and chronic respiratory failure Code(s): J96.20 - ACUTE AND CHR RESP FAILURE, UNSP W HYPOXIA OR HYPERCAPNIA Status: Acute Qualifiers: Respiratory failure complication: hypoxia and hypercapnia Qualified Code(s) : J96.21 - Acute and chronic respiratory failure with hypoxia; J96.22 - Acute and chronic respiratory failure with hypercapnia; J96.22 - Acute and chronic respiratory failure with hypercapnia; J96.22 - Acute and chronic respiratory failure with hypercapnia Comment: Steroids, nebs, mucinex, abx. Pulm following (2) COPD with exacerbation Code(s): J44.1 - CHRONIC OBSTRUCTIVE PULMONARY DISEASE W (ACUTE) EXACERBATION Status: Acute (3) Anxiety and depression Code(s): F41.9 - ANXIETY DISORDER, UNSPECIFIED; F32.9 - MAJOR DEPRESSIVE DISORDER, SINGLE EPISODE, UNSPECIFIED Status: Chronic (4) Chronic anticoagulation Code(s): Z79.01 - SNF (CURRENT) USE OF ANTICOAGULANTS Status: Chronic (5) GERD (gastroesophageal reflux disease) Code(s): K21.9 - GASTRO-ESOPHAGEAL REFLUX DISEASE WITHOUT ESOPHAGITIS Status: Chronic Qualifiers: Esophagitis presence: without esophagitis Qualified Code(s): K21.9 - Gastro -esophageal reflux disease without esophagitis Comment: has severe ulcerations seen on egd 12/20/16, asymptomatic now. continue GI prophylaxis (6) H/O deep venous thrombosis Code(s): Z86.718 - PERSONAL HISTORY OF OTHER VENOUS THROMBOSIS AND EMBOLISM Status: Chronic (7) Hypertension Code(s): I10 - ESSENTIAL (PRIMARY) HYPERTENSION Status: Chronic Qualifiers: Hypertension type: essential hypertension Qualified Code(s): I10 - Essential (primary) hypertension (8) Morbid obesity with BMI of 45.0-49.9, adult Code(s): E66.01 - MORBID (SEVERE) OBESITY DUE TO EXCESS CALORIES; Z68.42 - BODY MASS INDEX (BMI) 45.0-49.9, ADULT Status: Chronic (9) NICK (obstructive sleep apnea) Code(s): G47.33 - OBSTRUCTIVE SLEEP APNEA (ADULT) (PEDIATRIC) Status: Chronic Comment: on cpap - Plan cont current plan of care, continue antibiotics, PT/OT, respiratory therapy, out of bed/ambulate * .
--- NOTE | 2018-01-21 11:47 | PRG ---
DATE OF SERVICE: 01/21/2018 Elvira Rojas says she is feeling better. PHYSICAL EXAMINATION: VITAL SIGNS: Vital signs are afebrile, heart rate is 90, respiratory rate 22, oximetry is 93 on 2 li ters. LUNGS: Remarkable for diffuse wheezes. She has more audible breath sounds today. CARDIOVASCULAR: Regular rhythm. ABDOMEN: Soft. LABORATORY DATA: White count 13.9, hemoglobin 11.5, platelets 210. Sodium 140, potassium 4.2, chloride 105, bicarbonate 20, BUN 23, creatinine 1.05. IMPRESSION: 1. Chronic obstructive pulmonary disease exacerbation. 2. Acute on chronic respiratory failure, chronic hypoxemia on oxygen at home. 3. History of tracheostomy. 4. History of multiple chronic obstructive pulmonary disease exacerbations. 5. Obesity and deconditioning. 6. Sleep apnea. Her sister's plans to bring up her CPAP today. She will just continue with her home CPAP at night. She is stable to move out of the Intermediate Care Unit.
[2018-01-21] MEDS ORDERED: Hydrochlorothiazide 25 MG TAB PO PRN (11:59)
[2018-01-21] MEDS ORDERED: Benzonatate 100 MG CAP PO PRN (11:59)
[2018-01-21] MEDS ORDERED: Nystatin Cream 30 GM TUBE TOP PRN (11:59)
[2018-01-21] MEDS ORDERED: Temazepam 15 MG CAP PO PRN (11:59)
[2018-01-21] MEDS ORDERED: Polyethylene Glycol 3350 17 GM Packet PO PRN (11:59)
[2018-01-21] MEDS ORDERED: Furosemide 40 MG TAB PO PRN (11:59)
[2018-01-21] MEDS ORDERED: Cyclobenzaprine 10 MG TAB PO PRN (11:59)
--- NOTE | 2018-01-21 15:51 | HP ---
DATE OF ADMISSION: 01/20/2018 PRIMARY CARE PHYSICIAN: Dr. Telly Rollins. PRIMARY YARN SPOOLER: Dr. Caro. TIME OF SERVICE: 09:00. CHIEF COMPLAINT: Shortness of breath. HISTORY OF PRESENT ILLNESS: Ms. Rojas is a pleasant 62-year-old female with history of steroid and o xygen dependent COPD, chronic respiratory failure, hypertension, asthma, sleep apnea, obesity, and po lycystic kidney disease with chronic kidney disease stage 3 and history of DVT who presents to the em ergency department with shortness of breath. She was diagnosed with bronchitis six days prior to admission and was started on oral antibiotic, I b elieve with doxycycline. She had increased shortness of breath and cough on 01/19/2018, so presented to the emergency department for further evaluation. She was brought in by EMS who found her in a tr ipod positioning position gasping for air. On arrival, she was found to be hypoxemic and was placed on BiPAP. Labs were largely unremarkable except for mildly elevated white blood cell count 13.6 and 26% bands. She was subsequently admitted to the [facility] and accepted by the mds nurse. She is to hold over for night to be admitted this morning. Overnight, she did well, remained on BiPAP. She is still very short of breath and unable to be taken off. Denies any fevers or chills. No cough or sputum production. No hemoptysis. No GI bleeding, no abdominal pain, no chest pains. No other complaints. PAST MEDICAL HISTORY: 1. COPD. 2. Chronic hypoxic respiratory failure. 3. Hypertension. 4. Asthma. 5. Obstructive sleep apnea. 6. Severe obesity with BMI of 35-40. 7. Gastroesophageal reflux disease. 8. Osteoarthritis. 9. Polycystic kidney disease. 10. History of deep venous thrombosis. 11. Chronic kidney disease stage 3. PAST SURGICAL HISTORY: Includes, 1. Partial colon resection. 2. Renal stone extraction. 3. Ganglion cyst removal. 4. Hernia repair. 5. Liver mass removal. 6. Ruptured disk repair. 7. Hysterectomy. HOME MEDICATIONS: 1. Tessalon 200 mg p.o. t.i.d. p.r.n. 2. Doxycycline 100 mg p.o. b.i.d., new medication of HCTZ 50 mg p.o. daily. 3. Albuterol nebulizers q.i.d. p.r.n. shortness of breath. 4. Methylprednisolone 4 mg p.o. daily. 5. Lasix 40 mg daily. 6. Keflex 500 mg daily. 7. Reglan 10 mg p.o. b.i.d. p.r.n. nausea. 8. Prednisone 10 mg p.o. q.a.m. 9. Tramadol as needed. 10. Warfarin 3 mg daily. 11. Temazepam 30 mg p.o. at bedtime p.r.n. insomnia. 12. Imitrex 100 mg p.o. q.12 hours p.r.n. migraine. 13. Phenergan 25 mg p.o. q.6 hours p.r.n. nausea. 14. KCl 20 mEq daily. 15. MiraLax 17 grams p.o. daily. 16. Budesonide 0.5 mg nebulized b.i.d. 17. Paxil 10 mg p.o. q.a.m. 18. Diltiazem ER 180 mg p.o. q.a.m. 19. Singulair 10 mg p.o. q.p.m. 20. Lactobacillus 3 grams daily. 21. DuoNebs 3 mL nebulized q.i.d. 22. Hydrocodone 5/325 1-2 q.6 hours p.r.n. 23. Colace 100 mg p.o. daily. 24. Flexeril 10 mg p.o. t.i.d. p.r.n. muscle spasm. 25. Xanax 0.25 mg p.o. daily p.r.n. 26. Protonix 40 mg daily. 27. Fish oil daily. ALLERGIES: 1. PENICILLIN causes rash and swelling. 2. ZOFRAN. 3. CIPRO. 4. CLINDAMYCIN. 5. FLAGYL. 6. SULFA. 7. CEFPROZIL all cause nausea. FAMILY HISTORY: Negative for clotting or bleeding disorder. No immune dysfunction. SOCIAL HISTORY: Negative for habits x3. REVIEW OF SYSTEMS: All systems reviewed and were negative except as stated as per HPI. PHYSICAL EXAMINATION: VITAL SIGNS: Temperature on arrival to the ER was 98.6, pulse 104, blood pressure 138/111, respirato ry rate 24, satting 100% on BiPAP. On my evaluation, she was at 99.3, pulse 72, blood pressure 148/8 2, respiratory rate 20, and O2 sat 98% on BiPAP. GENERAL: She is awake. She is alert. She is oriented. Appears in mild respiratory distress, but c omfortable on the BiPAP. HEENT: Normocephalic, atraumatic. Pupils equal, round, react to light bilaterally. Mucous membrane s are moist. There are no visible lesion, no thrush. NECK: Supple, without lymphadenopathy, JVD, or thyromegaly. She has normal carotid upstrokes. Ther e are no bruits. LUNGS: Have coarse breath sounds bilaterally. She has diffuse inspiratory and expiratory wheeze wit h prolonged expiratory phase and then poor air movement. I cannot really appreciate any crackles. CARDIOVASCULAR: She is slightly tachycardic when moving, but normal cardiac otherwise. She has norm al S1 and S2. She has a faint 2/6 systolic ejection murmur. ABDOMEN: Obese. It is nontender, nondistended. No rebound, rigidity or guarding. I cannot palpate internal organs. EXTREMITIES: No cyanosis or clubbing. She has chronic 1+ lower extremity edema to about the mid tib ia level. SKIN: Warm, moist, and well perfused. She has no other rash or lesions. She does have thinning of the skin from chronic steroid use. MUSCULOSKELETAL: Normal to inspection. Large wounds appear uninflamed. There are no palpable effus ions. NEUROLOGIC: Cranial nerves II-XII are grossly intact without any focal neurologic deficits. She has normal speech pattern and 5/5 strength. LABORATORY DATA: Sodium 143, potassium 4.6, chloride 106, bicarbonate 25, BUN 21, creatinine 1.04, g lucose 262, calcium 8.9. Liver function is completely within normal limits. INR is 2.3. CBC showed white count of 13.6. She has 31% granulocytes, 6% bands, hemoglobin 12.8, hematocrit of 3 9.9, platelet count is 214,000. Her CK-MB is normal at 1.5, troponin I was undetectable x3 and BNP i s only 56. IMAGING DATA: Her chest x-ray showed bilateral interstitial changes that are stable and also showed cardiomegaly. ASSESSMENT AND PLAN: 1. Acute exacerbation of chronic obstructive pulmonary disease. We will continue Solu-Medrol, q.4 h our DuoNebs, q.2 hour p.r.n. albuterol, Mucinex ER, and levofloxacin. She has been on doxycycline re cently. We will consult Dr. Caro as he is her readers' advisory service librarian. 2. Acute hypoxemic respiratory failure requiring BiPAP. She is comfortable on BiPAP. We will let h er BiPAP through the day and night, and try to take her off tomorrow morning. 3. Essential hypertension, stable. 4. Obstructive sleep apnea, she uses CPAP at night. We will continue with BiPAP for now. 5. Severe obesity. 6. Gastroesophageal reflux disease, on Protonix, we will continue. 7. Osteoarthritis. 8. History of polycystic kidney disease with chronic kidney disease, currently stable. She is admitted inpatient. We will continue here in the IMCU for now and when she is not requiring B iPAP p.r.n., we will be able to transfer to floor.
[2018-01-21] MEDS: Warfarin Sodium 3 MG TAB PO SCH (17:13)
[2018-01-21] MEDS: Montelukast Sodium 10 mg Tablet PO SCH (21:38)
[2018-01-22 05:50] LABS: #Lymphocytes 0.9 thou/uL (1.20-3.40); #Monocytes 0.8 thou/uL (0.11-0.59); %Basophils 0.1 % (0.0-1.0); %Eosinophils 0.3 % (0.0-10.0); %Lymphocytes 6.7 % (21.0-51.0); %Monocytes 5.8 % (0.0-10.0); %Neutrophils 87.1 % (42.0-75.0); Hemoglobin 12.3 g/dL (12.0-16.0); Mean Corpuscular Hemoglobin 28.5 pg (27.0-31.0); Mean Platelet Volume 7.1 fL (7.4-10.4); Platelet Count 215 thou/uL (130-400); RBC Distribution Width 14.1 % (11.5-14.5); Red Blood Cell (RBC) Count 4.32 mill/uL (4.20-5.40); White Blood Cell (WBC) Count 13.7 thou/uL (4.8-10.8)
[2018-01-22 06:01] LABS: INR-International Normal Ratio 2.3
[2018-01-22 06:31] VITALS: BMI 49.8
[2018-01-22 06:32] LABS: Anion Gap 12 mmol/L (10-20); BUN (Urea Nitrogen) 28 mg/dL (9.8-20.1); Calc. Creatinine Clearance 125 mL/min (70-130); Carbon Dioxide 30 mmol/L (22-29); Chloride 100 mmol/L (98-107); Estimated GFR-MDRD 53; Glucose 181 mg/dL (70-105); Magnesium 1.8 mg/dL (1.6-2.6); Potassium 3.9 mmol/L (3.5-5.1); Sodium 138 mmol/L (136-145)
[2018-01-22] MEDS: Lactinex Tablet PO SCH (09:28)
[2018-01-22] MEDS: Multivit, Therapeutic 1 TAB PO SCH (09:28)
[2018-01-22] MEDS: PARoxetine 20 MG TAB PO SCH (09:28)
[2018-01-22] MEDS: Potassium Chloride 20 MEQ TAB PO SCH (09:29)
[2018-01-22] MEDS ORDERED: Acetylcysteine 20% 200 MG/ML 30 ML VIAL INH SCH (11:45)
[2018-01-22] MEDS ORDERED: guaiFENesin ER 600 MG TAB PO SCH (11:45)
--- NOTE | 2018-01-22 12:57 | RAD ---
PORTABLE CHEST: History: Shortness of breath. Comparison: 01-19-18 FINDINGS: Bibasilar and parenchymal opacities consistent with atelectasis and/or infiltrate. This is similar to prior exam. I cannot exclude small effusions. Upper lung beach remain clear. Heart is mildly promin ent and stable. IMPRESSION: Bibasilar and parenchymal changes are again noted. Infiltrates are not excluded. POS: [facility]
[2018-01-22] MEDS: hydrALAZINE 20 MG/ML VIAL SLOW IVP PRN (13:08)
[2018-01-22 13:47] LABS: Base Excess (BEa) 4.4 mEq/L (0 (+/-) 2.5); CO2 Tension 38.4 mmHg (35.0-45.0); Hematocrit-ABG 45.6 % (36.0-47.0); Hemoglobin (Hb) 13.5 g/dL (12.0-16.0); O2 Tension (PaO2) 73.4 mmHg (80.0-100.0); pH, Arterial 7.48 (7.35-7.45)
[2018-01-22 13:48] LABS: Analyzer IN Cardio OR; Calcium, Ionized 1.2 mmol/L (1.12-1.30); Puncture Site LRA
[2018-01-22] MEDS ORDERED: Magnesium Sulfate 3 GM in Sodium Chloride 0.9% 100 ML IVPB SCH (14:15)
[2018-01-22] MEDS: Warfarin Sodium 3 MG TAB PO SCH (18:23)
[2018-01-22] MEDS: ALPRAZolam 0.25 MG TAB PO PRN (20:03)
[2018-01-22] MEDS: Montelukast Sodium 10 mg Tablet PO SCH (20:03)
[2018-01-22] MEDS: guaiFENesin ER 600 MG TAB PO SCH (20:03)
--- NOTE | 2018-01-22 20:47 | PRG ---
DATE OF SERVICE: 01/22/2018 SUBJECTIVE: Ms. Rojas is apparently awake and more short of breath. She tells me that about 10:00 t his morning she became severely short of breath. She received back to back nebulizer treatments for respiratory therapy and transfer orders were placed to move her to the intermediate care unit. After lunch, I heard from the intermediate care nurses that she was being moved over, so I went down to [facility] Oncology Unit to evaluate her. She was unable to speak, breathing 30 plus times a minute. I have contacted the fish housekeeper to get her moved to the Critical Care Unit immediately. On arrival in the ICU, she was immediately placed on BiPAP, given 3 grams of magnesium and started on q.1 hour neb ulizer treatments. She has improved dramatically with this by my assessment this afternoon. I met with her sister and answered all of her questions and reassured her that it did appear that she is going to have to be intubated, although when I evaluated her on the Oncology Unit, I felt that if she were not better within 15 minutes, we would have to intubate her. OBJECTIVE: VITAL SIGNS: Blood pressure now is 125/105, but that is probably inaccurate since she has had a wris t cuff in place. Heart rate is 108, respiratory rate is 16, oximetry is 100%. LUNGS: Remarkable for diffuse wheezes. HEART: Regular rhythm. ABDOMEN: Soft. EXTREMITIES: Without asymmetry. LABORATORY DATA: White count 13.7, hemoglobin 12.3, platelets 215,000. Sodium 138, potassium 3.9, c hloride 100, bicarbonate 30, BUN 28, creatinine 1.06. IMPRESSION: Chronic obstructive pulmonary disease exacerbation. Chest radiograph ordered this morning showed bibasilar atelectatic changes. I suspect this is more a telectasis from failure to clear secretions than it is pneumonia. She has clinically improved this afternoon with the above interventions. She will remain in the [facility] Care Unit probably for the next few days. CRITICAL CARE TIME: 35 minutes including multiple examinations on the Oncology Unit and the Critical Care Unit.
[2018-01-23 04:27] LABS: #Eosinphils 0.1 thou/uL (0.0-0.7); #Lymphocytes 0.5 thou/uL (1.20-3.40); #Monocytes 0.9 thou/uL (0.11-0.59); #Neutrophils 10.2 thou/uL (1.40-6.50); %Basophils 0.1 % (0.0-1.0); %Eosinophils 0.5 % (0.0-10.0); %Monocytes 7.7 % (0.0-10.0); %Neutrophils 87.7 % (42.0-75.0); Hemoglobin 11.8 g/dL (12.0-16.0); Mean Corpuscular HGB CONC 32.4 g/dL (32.0-36.0); Mean Corpuscular Hemoglobin 28.9 pg (27.0-31.0); Mean Corpuscular Volume 89.3 fl (81.0-99.0); Mean Platelet Volume 7.3 fL (7.4-10.4); Platelet Count 204 thou/uL (130-400); White Blood Cell (WBC) Count 11.7 thou/uL (4.8-10.8)
[2018-01-23 04:32] LABS: INR-International Normal Ratio 2.4; Prothrombin Time 26.6 SEC (12.0-14.7)
[2018-01-23 04:56] LABS: ALT (SGPT) 16 U/L (8-55); AST (SGOT) 10 U/L (5-34); Albumin 3.5 g/dL (3.5-5.0); Alkaline Phosphatase 49 U/L (40-150); Anion Gap 13 mmol/L (10-20); BUN (Urea Nitrogen) 37 mg/dL (9.8-20.1); Bilirubin, Total 0.5 mg/dL (0.2-1.2); Calc. Creatinine Clearance 106 mL/min (70-130); Calcium 8.9 mg/dL (7.8-10.44); Carbon Dioxide 29 mmol/L (22-29); Chloride 98 mmol/L (98-107); Estimated GFR-MDRD 44; Globulin 2.5 g/dL (2.4-3.5); Glucose 292 mg/dL (70-105); Magnesium 2.4 mg/dL (1.6-2.6); Potassium 3.9 mmol/L (3.5-5.1); Sodium 136 mmol/L (136-145)
[2018-01-23] MEDS: PARoxetine 20 MG TAB PO SCH (08:32)
[2018-01-23] MEDS: guaiFENesin ER 600 MG TAB PO SCH ×2 (08:32→21:06)
[2018-01-23] MEDS: Multivit, Therapeutic 1 TAB PO SCH (08:33)
[2018-01-23] MEDS: Lactinex Tablet PO SCH (08:33)
[2018-01-23] MEDS: Potassium Chloride 20 MEQ TAB PO SCH (08:33)
[2018-01-23] MEDS: ALPRAZolam 0.25 MG TAB PO PRN ×3 (09:21→21:06)
--- NOTE | 2018-01-23 14:58 | PDOC.PN ---
- Subjective Encounter Start Date: 01/22/18 Encounter Start Time: 12:30 Pt with increasing SOB this AM. tachycardic, increased BP,increased O2 requirement. Transferring to ICU for BiPAP. Dr Caro notified. did okay overnight, no CP, no F/c,minimal cough, SOB stable, got acute worse this morning Pt liliana med well, taking frequent nebs, audibly wheezing, feels like she has phlems stuck in th emiddl eof her chest and obstructing her breathing All systems reviewed and neg x as above - Objective MAR Reviewed: Yes Vital Signs & Weight: Vital Signs (12 hours) Temp Pulse Resp Pulse Ox 01/23/18 12:39 108 H 19 98 01/23/18 12:00 98.8 F 01/23/18 10:09 120 H 17 100 01/23/18 09:02 111 H 22 H 98 01/23/18 08:00 108 H 17 97 01/23/18 07:12 98.4 F 105 H 21 H 100 01/23/18 07:09 105 H 21 H 98 01/23/18 07:00 98.4 F 01/23/18 06:07 104 H 01/23/18 06:05 116 H 24 H 100 01/23/18 04:55 108 H 14 100 01/23/18 03:57 103 H 15 97 Weight Weight 309 lb 15.519 oz Most Recent Monitor Data Heart Rate from ECG 102 NIBP 161/107 NIBP BP-Mean 118 Respiration from ECG 16 SpO2 98 I&O: 01/22/18 01/23/18 01/24/18 06:59 06:59 06:59 Intake Total 750 580 600 Output Total 1300 1600 Balance 750 -720 -1000 Result Diagrams: 01/23/18 04:09 01/23/18 04:09 Radiology Reviewed by me: Yes EKG Reviewed by me: Yes Phys Exam - Physical Examination mod to severe resp distress HEENT: PERRLA, moist MMs, sclera anicteric, oral pharynx no lesions Neck: no nodes, supple, full ROM +JVD to jaw diffused insp and exp wheezing. coarse Bilateral BS, +rhonchi tachy, reg. no murmurs Gastrointestinal: soft, non-tender, positive bowel sounds Musculoskeletal: edema present Neurological: non-focal, normal sensation, moves all 4 limbs Lymphatic: no nodes Psychiatric: normal affect, A&O x 3 Skin: no rash, normal turgor, cap refill <2 seconds Dx/Plan (1) Acute and chronic respiratory failure Code(s): J96.20 - ACUTE AND CHR RESP FAILURE, UNSP W HYPOXIA OR HYPERCAPNIA Status: Acute Qualifiers: Respiratory failure complication: hypoxia and hypercapnia Qualified Code(s) : J96.21 - Acute and chronic respiratory failure with hypoxia; J96.22 - Acute and chronic respiratory failure with hypercapnia; J96.22 - Acute and chronic respiratory failure with hypercapnia; J96.22 - Acute and chronic respiratory failure with hypercapnia Comment: Steroids, nebs, mucinex, abx. Pulm following. Backto ICU for BiPAP. Mucomyst now to see if we can loosin up her secretions, Mucinex added (2) COPD with exacerbation Code(s): J44.1 - CHRONIC OBSTRUCTIVE PULMONARY DISEASE W (ACUTE) EXACERBATION Status: Acute (3) Anxiety and depression Code(s): F41.9 - ANXIETY DISORDER, UNSPECIFIED; F32.9 - MAJOR DEPRESSIVE DISORDER, SINGLE EPISODE, UNSPECIFIED Status: Chronic (4) Chronic anticoagulation Code(s): Z79.01 - RETIREMENT (CURRENT) USE OF ANTICOAGULANTS Status: Chronic (5) GERD (gastroesophageal reflux disease) Code(s): K21.9 - GASTRO-ESOPHAGEAL REFLUX DISEASE WITHOUT ESOPHAGITIS Status: Chronic Qualifiers: Esophagitis presence: without esophagitis Qualified Code(s): K21.9 - Gastro -esophageal reflux disease without esophagitis Comment: has severe ulcerations seen on egd 12/20/16, asymptomatic now. continue GI prophylaxis (6) H/O deep venous thrombosis Code(s): Z86.718 - PERSONAL HISTORY OF OTHER VENOUS THROMBOSIS AND EMBOLISM Status: Chronic (7) Hypertension Code(s): I10 - ESSENTIAL (PRIMARY) HYPERTENSION Status: Chronic Qualifiers: Hypertension type: essential hypertension Qualified Code(s): I10 - Essential (primary) hypertension (8) Morbid obesity with BMI of 45.0-49.9, adult Code(s): E66.01 - MORBID (SEVERE) OBESITY DUE TO EXCESS CALORIES; Z68.42 - BODY MASS INDEX (BMI) 45.0-49.9, ADULT Status: Chronic (9) NICK (obstructive sleep apnea) Code(s): G47.33 - OBSTRUCTIVE SLEEP APNEA (ADULT) (PEDIATRIC) Status: Chronic Comment: on cpap - Plan cont current plan of care, continue antibiotics, respiratory therapy * . continue nebs, add in mucinex, continue abx, transfer to ICU for BIPAP. May need to intubate
--- NOTE | 2018-01-23 15:03 | PDOC.PN ---
- Subjective Encounter Start Date: 01/23/18 Encounter Start Time: 11:00 Pt much more comfortable this morning, moving some phlegm. Off BiPAP at present , friend at her side. No F/C, no N/V/D/C, no CP, SOB present but better. No new complaints, no acute events. All systems reviewed and neg for all systems except as per HPI - Objective MAR Reviewed: Yes Vital Signs & Weight: Vital Signs (12 hours) Temp Pulse Resp Pulse Ox 01/23/18 12:39 108 H 19 98 01/23/18 12:00 98.8 F 01/23/18 10:09 120 H 17 100 01/23/18 09:02 111 H 22 H 98 01/23/18 08:00 108 H 17 97 01/23/18 07:12 98.4 F 105 H 21 H 100 01/23/18 07:09 105 H 21 H 98 01/23/18 07:00 98.4 F 01/23/18 06:07 104 H 01/23/18 06:05 116 H 24 H 100 01/23/18 04:55 108 H 14 100 01/23/18 03:57 103 H 15 97 Weight Weight 309 lb 15.519 oz Most Recent Monitor Data Heart Rate from ECG 102 NIBP 161/107 NIBP BP-Mean 118 Respiration from ECG 16 SpO2 98 I&O: 01/22/18 01/23/18 01/24/18 06:59 06:59 06:59 Intake Total 750 580 600 Output Total 1300 1600 Balance 750 -720 -1000 Result Diagrams: 01/23/18 04:09 01/23/18 04:09 Radiology Reviewed by me: Yes EKG Reviewed by me: Yes Phys Exam - Physical Examination Constitutional: NAD HEENT: PERRLA, moist MMs, sclera anicteric, oral pharynx no lesions Neck: no nodes, no JVD, supple, full ROM prolonged exp phase, coare bilateral rales, no rhonchi, some exp wheezing Cardiovascular: no significant murmur, no rub tachy, was 10X this AM, 120-130s on trasnfer. back upt o 10s as she is up to a chair Gastrointestinal: soft, non-tender, no distention, positive bowel sounds Musculoskeletal: pulses present, edema present Neurological: non-focal, normal sensation, moves all 4 limbs Lymphatic: no nodes Psychiatric: normal affect, A&O x 3 Skin: no rash, normal turgor, cap refill <2 seconds Dx/Plan (1) Acute and chronic respiratory failure Code(s): J96.20 - ACUTE AND CHR RESP FAILURE, UNSP W HYPOXIA OR HYPERCAPNIA Status: Acute Qualifiers: Respiratory failure complication: hypoxia and hypercapnia Qualified Code(s) : J96.21 - Acute and chronic respiratory failure with hypoxia; J96.22 - Acute and chronic respiratory failure with hypercapnia; J96.22 - Acute and chronic respiratory failure with hypercapnia; J96.22 - Acute and chronic respiratory failure with hypercapnia Comment: Steroids, nebs, mucinex, abx. Pulm following. Back in ICU for BiPAP HS and PRN. improved today. (2) COPD with exacerbation Code(s): J44.1 - CHRONIC OBSTRUCTIVE PULMONARY DISEASE W (ACUTE) EXACERBATION Status: Acute (3) Anxiety and depression Code(s): F41.9 - ANXIETY DISORDER, UNSPECIFIED; F32.9 - MAJOR DEPRESSIVE DISORDER, SINGLE EPISODE, UNSPECIFIED Status: Chronic (4) Chronic anticoagulation Code(s): Z79.01 - JOURNALISM TEACHER (CURRENT) USE OF ANTICOAGULANTS Status: Chronic (5) GERD (gastroesophageal reflux disease) Code(s): K21.9 - GASTRO-ESOPHAGEAL REFLUX DISEASE WITHOUT ESOPHAGITIS Status: Chronic Qualifiers: Esophagitis presence: without esophagitis Qualified Code(s): K21.9 - Gastro -esophageal reflux disease without esophagitis Comment: has severe ulcerations seen on egd 12/20/16, asymptomatic now. continue GI prophylaxis (6) H/O deep venous thrombosis Code(s): Z86.718 - PERSONAL HISTORY OF OTHER VENOUS THROMBOSIS AND EMBOLISM Status: Chronic (7) Hypertension Code(s): I10 - ESSENTIAL (PRIMARY) HYPERTENSION Status: Chronic Qualifiers: Hypertension type: essential hypertension Qualified Code(s): I10 - Essential (primary) hypertension (8) Morbid obesity with BMI of 45.0-49.9, adult Code(s): E66.01 - MORBID (SEVERE) OBESITY DUE TO EXCESS CALORIES; Z68.42 - BODY MASS INDEX (BMI) 45.0-49.9, ADULT Status: Chronic (9) NICK (obstructive sleep apnea) Code(s): G47.33 - OBSTRUCTIVE SLEEP APNEA (ADULT) (PEDIATRIC) Status: Chronic Comment: on cpap - Plan cont current plan of care, continue antibiotics, PT/OT, social services specialist, respiratory therapy, out of bed/ambulate * .
[2018-01-23] MEDS: Warfarin Sodium 3 MG TAB PO SCH (17:20)
[2018-01-23] MEDS: Montelukast Sodium 10 mg Tablet PO SCH (21:06)
--- NOTE | 2018-01-23 21:51 | PRG ---
DATE OF SERVICE: 01/23/2018 SUBJECTIVE: Ms. Elvira Rojas says she is feeling better. She is in no distress. OBJECTIVE: VITAL SIGNS: Heart rate is 104, respiratory rate is 21, oximetry is 100%, blood pressure 147/59. LUNGS: Remarkable for diffuse wheezes that are improved compared to yesterday. HEART: Regular rhythm. ABDOMEN: Soft. LABORATORY DATA: White count is 11.7, hemoglobin 11.8, platelets 204,000. Sodium 136, potassium 3.9, chloride 98, bicarbonate 29, BUN 37, creatinine 1.25. IMPRESSION: 1. Chronic obstructive pulmonary disease exacerbation with respiratory failure, requiring BiPAP, cli nically markedly improved. 2. Underlying sleep apnea. 3. Obesity. 4. Deconditioning. PLAN: Nocturnal BiPAP or nocturnal CPAP. Either one should work out at this point. We will decreas e frequency of her nebulized treatments. She will remain in the critical care unit.
[2018-01-24] MEDS: hydrALAZINE 20 MG/ML VIAL SLOW IVP PRN (01:10)
[2018-01-24 04:36] LABS: #Eosinphils 0.1 thou/uL (0.0-0.7); #Lymphocytes 0.5 thou/uL (1.20-3.40); #Monocytes 0.6 thou/uL (0.11-0.59); #Neutrophils 10.7 thou/uL (1.40-6.50); %Eosinophils 0.7 % (0.0-10.0); %Lymphocytes 4.2 % (21.0-51.0); %Monocytes 4.8 % (0.0-10.0); %Neutrophils 90.3 % (42.0-75.0); Hemoglobin 11.6 g/dL (12.0-16.0); Mean Corpuscular HGB CONC 32.3 g/dL (32.0-36.0); Mean Corpuscular Hemoglobin 28.6 pg (27.0-31.0); Mean Corpuscular Volume 88.7 fl (81.0-99.0); Mean Platelet Volume 7.2 fL (7.4-10.4); Platelet Count 192 thou/uL (130-400); Red Blood Cell (RBC) Count 4.06 mill/uL (4.20-5.40); White Blood Cell (WBC) Count 11.9 thou/uL (4.8-10.8)
[2018-01-24 04:41] LABS: INR-International Normal Ratio 2.8; Prothrombin Time 30.9 SEC (12.0-14.7)
[2018-01-24 04:56] LABS: Anion Gap 11 mmol/L (10-20); BUN (Urea Nitrogen) 36 mg/dL (9.8-20.1); Calc. Creatinine Clearance 121 mL/min (70-130); Calcium 8.6 mg/dL (7.8-10.44); Carbon Dioxide 27 mmol/L (22-29); Chloride 101 mmol/L (98-107); Estimated GFR-MDRD 51; Glucose 276 mg/dL (70-105); Potassium 4.3 mmol/L (3.5-5.1); Sodium 135 mmol/L (136-145)
[2018-01-24] MEDS: guaiFENesin ER 600 MG TAB PO SCH ×2 (08:27→21:24)
[2018-01-24] MEDS: Lactinex Tablet PO SCH (08:27)
[2018-01-24] MEDS: Multivit, Therapeutic 1 TAB PO SCH (08:28)
[2018-01-24] MEDS: PARoxetine 20 MG TAB PO SCH (08:28)
[2018-01-24] MEDS: Potassium Chloride 20 MEQ TAB PO SCH (08:28)
--- NOTE | 2018-01-24 13:53 | PDOC.PN ---
- Subjective Encounter Start Date: 01/24/18 Encounter Start Time: 11:30 Pt trasnferred from CCU to IMCU. stable overight, and overall improved. liliana BiPAP overnight, liliana NC during the day. no F/C,no n/V/d/C, cough present, largely nonproductive No acute overnight events All systems reviewed and neg x as above - Objective MAR Reviewed: Yes Vital Signs & Weight: Vital Signs (12 hours) Temp Pulse Resp BP Pulse Ox 01/24/18 11:00 98.7 F 96 20 153/93 H 96 01/24/18 10:42 98.3 F 89 16 98 01/24/18 10:22 89 16 97 01/24/18 07:35 98.3 F 87 16 96 01/24/18 07:17 90 01/24/18 07:16 91 14 95 01/24/18 04:00 98.1 F 01/24/18 03:28 93 16 96 Weight Weight 311 lb 1.156 oz Most Recent Monitor Data Heart Rate from ECG 128 NIBP 147/84 NIBP BP-Mean 140 Respiration from ECG 22 SpO2 95 I&O: 01/23/18 01/24/18 01/25/18 06:59 06:59 06:59 Intake Total 580 1280 360 Output Total 1300 3300 400 Balance -720 -2020 -40 Result Diagrams: 01/24/18 04:10 01/24/18 04:10 EKG Reviewed by me: Yes Phys Exam - Physical Examination Constitutional: NAD HEENT: PERRLA, moist MMs, sclera anicteric, oral pharynx no lesions Neck: no nodes, no JVD, supple, full ROM less but present wheezing, expiratory, no rales, no rhonchi Cardiovascular: no significant murmur tachy, regular Gastrointestinal: soft, non-tender, positive bowel sounds severely obese Musculoskeletal: edema present Neurological: non-focal, normal sensation, moves all 4 limbs Lymphatic: no nodes Psychiatric: normal affect, A&O x 3 Skin: no rash, normal turgor, cap refill <2 seconds Dx/Plan (1) Acute and chronic respiratory failure Code(s): J96.20 - ACUTE AND CHR RESP FAILURE, UNSP W HYPOXIA OR HYPERCAPNIA Status: Acute Qualifiers: Respiratory failure complication: hypoxia and hypercapnia Qualified Code(s) : J96.21 - Acute and chronic respiratory failure with hypoxia; J96.22 - Acute and chronic respiratory failure with hypercapnia; J96.22 - Acute and chronic respiratory failure with hypercapnia; J96.22 - Acute and chronic respiratory failure with hypercapnia Comment: Steroids, nebs, mucinex, abx. Pulm following. Back in ICU for BiPAP HS and PRN. improved today. 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 continue GI prophylaxis (6) H/O deep venous thrombosis Code(s): Z86.718 - PERSONAL HISTORY OF OTHER VENOUS THROMBOSIS AND EMBOLISM Status: Chronic (7) Hypertension Code(s): I10 - ESSENTIAL (PRIMARY) HYPERTENSION Status: Chronic Qualifiers: Hypertension type: essential hypertension Qualified Code(s): I10 - Essential (primary) hypertension (8) Morbid obesity with BMI of 45.0-49.9, adult Code(s): E66.01 - MORBID (SEVERE) OBESITY DUE TO EXCESS CALORIES; Z68.42 - BODY MASS INDEX (BMI) 45.0-49.9, ADULT Status: Chronic (9) NICK (obstructive sleep apnea) Code(s): G47.33 - OBSTRUCTIVE SLEEP APNEA (ADULT) (PEDIATRIC) Status: Chronic Comment: on cpap - Plan * .
--- NOTE | 2018-01-24 15:05 | PRG ---
DATE OF SERVICE: 01/24/2018 SUBJECTIVE: Elvira Rojas is feeling better. She slept well. She wore her BiPAP and she still wear ing BiPAP when I saw her about 8:30 this morning. OBJECTIVE: VITAL SIGNS: Have been stable. She is not tachypneic. She is afebrile, heart rates in the 90s, res piratory rate is 20, oximetry is 96, blood pressure 152/93. LUNGS: Remarkable for faint wheezes. HEART: Regular rhythm. ABDOMEN: Soft. EXTREMITIES: Without asymmetry or edema. IMPRESSION: Chronic obstructive pulmonary disease exacerbation. PLAN: Transfer to step down unit. We will decrease her steroid dosing. I will decrease frequency of her nebulized treatments to q.4 ho urs.
[2018-01-24] MEDS: Warfarin Sodium 3 MG TAB PO SCH (17:36)
[2018-01-24] MEDS: ALPRAZolam 0.25 MG TAB PO PRN (19:15)
[2018-01-24] MEDS: Montelukast Sodium 10 mg Tablet PO SCH (21:24)
[2018-01-25 05:40] LABS: INR-International Normal Ratio 3.4; Prothrombin Time 36.2 SEC (12.0-14.7)
[2018-01-25 05:45] LABS: #Eosinphils 0.1 thou/uL (0.0-0.7); #Lymphocytes 0.7 thou/uL (1.20-3.40); #Monocytes 0.8 thou/uL (0.11-0.59); #Neutrophils 12.8 thou/uL (1.40-6.50); %Eosinophils 0.6 % (0.0-10.0); %Monocytes 5.6 % (0.0-10.0); %Neutrophils 88.8 % (42.0-75.0); Hemoglobin 11.5 g/dL (12.0-16.0); Mean Corpuscular HGB CONC 30.6 g/dL (32.0-36.0); Mean Corpuscular Hemoglobin 27.2 pg (27.0-31.0); Mean Corpuscular Volume 88.9 fl (81.0-99.0); Mean Platelet Volume 7.3 fL (7.4-10.4); Platelet Count 208 thou/uL (130-400); Red Blood Cell (RBC) Count 4.21 mill/uL (4.20-5.40); White Blood Cell (WBC) Count 14.4 thou/uL (4.8-10.8)
[2018-01-25 05:58] LABS: Anion Gap 12 mmol/L (10-20); BUN (Urea Nitrogen) 40 mg/dL (9.8-20.1); Calc. Creatinine Clearance 129 mL/min (70-130); Calcium 8.3 mg/dL (7.8-10.44); Carbon Dioxide 27 mmol/L (22-29); Chloride 100 mmol/L (98-107); Estimated GFR-MDRD 55; Glucose 250 mg/dL (70-105); Magnesium 2.1 mg/dL (1.6-2.6); Potassium 4.7 mmol/L (3.5-5.1); Sodium 134 mmol/L (136-145)
[2018-01-25] MEDS: Lactinex Tablet PO SCH (08:44)
[2018-01-25] MEDS: guaiFENesin ER 600 MG TAB PO SCH ×2 (08:45→20:28)
[2018-01-25] MEDS: Multivit, Therapeutic 1 TAB PO SCH (08:45)
[2018-01-25] MEDS: Potassium Chloride 20 MEQ TAB PO SCH (08:45)
[2018-01-25] MEDS: PARoxetine 20 MG TAB PO SCH (08:45)
--- NOTE | 2018-01-25 12:58 | PDOC.PN ---
- Subjective Encounter Start Date: 01/25/18 Encounter Start Time: 13:20 Subjective: Patient with improved breathing overall and was off BiPAP all morning. -: She got a little anxious after lunch so took Xanax and now back on Bipap. - Objective MAR Reviewed: Yes Vital Signs & Weight: Vital Signs (12 hours) Temp Pulse Resp BP BP Pulse Ox 01/25/18 10:58 98.3 F 101 H 24 H 169/64 H 96 01/25/18 10:47 92 16 95 01/25/18 08:00 97.6 F 94 18 94 L 01/25/18 07:46 94 01/25/18 07:44 97 14 94 L 01/25/18 07:28 97.6 F 87 20 137/101 H 92 L 01/25/18 04:00 97.0 F L 82 17 132/65 96 01/25/18 02:26 87 01/25/18 02:25 88 16 93 L Weight Weight 310 lb Most Recent Monitor Data Heart Rate from ECG 128 NIBP 147/84 NIBP BP-Mean 140 Respiration from ECG 22 SpO2 95 I&O: 01/24/18 01/25/18 01/26/18 06:59 06:59 06:59 Intake Total 1280 360 Output Total 3300 1100 Balance -2019 Result Diagrams: 01/25/18 05:15 01/25/18 05:15 Phys Exam - Physical Examination Constitutional: NAD HEENT: moist MMs Respiratory: no rales, no rhonchi decent breath sound bilaterally on Bipap Cardiovascular: RRR Gastrointestinal: soft, positive bowel sounds Neurological: non-focal, moves all 4 limbs Psychiatric: normal affect, A&O x 3 Dx/Plan (1) Acute and chronic respiratory failure Code(s): J96.20 - ACUTE AND CHR RESP FAILURE, UNSP W HYPOXIA OR HYPERCAPNIA Status: Acute Qualifiers: Respiratory failure complication: hypoxia and hypercapnia Qualified Code(s) : J96.21 - Acute and chronic respiratory failure with hypoxia; J96.22 - Acute and chronic respiratory failure with hypercapnia; J96.22 - Acute and chronic respiratory failure with hypercapnia; J96.22 - Acute and chronic respiratory failure with hypercapnia Comment: Steroids, nebs, mucinex, abx. Pulm following. Out in IMCU. Utilizing BiPAP. (2) COPD with exacerbation Code(s): J44.1 - CHRONIC OBSTRUCTIVE PULMONARY DISEASE W (ACUTE) EXACERBATION Status: Acute (3) Anxiety and depression Code(s): F41.9 - ANXIETY DISORDER, UNSPECIFIED; F32.9 - MAJOR DEPRESSIVE DISORDER, SINGLE EPISODE, UNSPECIFIED Status: Chronic (4) Chronic anticoagulation Code(s): Z79.01 - SENIOR CARE (CURRENT) USE OF ANTICOAGULANTS Status: Chronic (5) GERD (gastroesophageal reflux disease) Code(s): K21.9 - GASTRO-ESOPHAGEAL REFLUX DISEASE WITHOUT ESOPHAGITIS Status: Chronic Qualifiers: Esophagitis presence: without esophagitis Qualified Code(s): K21.9 - Gastro -esophageal reflux disease without esophagitis Comment: has severe ulcerations seen on egd 12/20/16, asymptomatic now. continue GI prophylaxis (6) H/O deep venous thrombosis Code(s): Z86.718 - PERSONAL HISTORY OF OTHER VENOUS THROMBOSIS AND EMBOLISM Status: Chronic (7) Hypertension Code(s): I10 - ESSENTIAL (PRIMARY) HYPERTENSION Status: Chronic Qualifiers: Hypertension type: essential hypertension Qualified Code(s): I10 - Essential (primary) hypertension (8) Morbid obesity with BMI of 45.0-49.9, adult Code(s): E66.01 - MORBID (SEVERE) OBESITY DUE TO EXCESS CALORIES; Z68.42 - BODY MASS INDEX (BMI) 45.0-49.9, ADULT Status: Chronic (9) NICK (obstructive sleep apnea) Code(s): G47.33 - OBSTRUCTIVE SLEEP APNEA (ADULT) (PEDIATRIC) Status: Chronic Comment: on cpap - Plan cont current plan of care, continue antibiotics, DVT proph w/SCDs * . - Discharge Day Encounter end time: 13:40
[2018-01-25] MEDS: ALPRAZolam 0.25 MG TAB PO PRN ×2 (13:03→18:19)
--- NOTE | 2018-01-25 13:57 | PRG ---
DATE OF SERVICE: 01/25/2018 SUBJECTIVE: Ms. Rojas did well overnight. She has no complaints. OBJECTIVE: VITAL SIGNS: She is afebrile, heart rate 71, respiratory rate is 24, oximetry is 96. LUNGS: Still remarkable for wheezes, but she continues to improve. HEART: Regular rhythm. ABDOMEN: Soft. ASSESSMENT AND PLAN: I had a long discussion today about diet. She probably needs to be on a diet b etween 12 and 1500 calories, and we probably should start that here in the hospital so she understand s the restriction this is. She is 310 pounds now and only 5 feet 6 inches. The last time she weighe d herself she weighed 275. She is so inactive that her weight is now becoming an issue with regard t o survival of chronic obstructive pulmonary disease exacerbations. Probably transfer out of the [facility] rmediate Care Unit in the morning.
[2018-01-25] MEDS ORDERED: Warfarin Sodium 3 MG TAB PO SCH (17:00)
[2018-01-25] MEDS: Montelukast Sodium 10 mg Tablet PO SCH (20:28)
[2018-01-26 05:44] LABS: INR-International Normal Ratio 3.4; Prothrombin Time 36.2 SEC (12.0-14.7)
[2018-01-26] MEDS: guaiFENesin ER 600 MG TAB PO SCH ×2 (09:06→19:59)
[2018-01-26] MEDS: Multivit, Therapeutic 1 TAB PO SCH (09:06)
[2018-01-26] MEDS: PARoxetine 20 MG TAB PO SCH (09:07)
[2018-01-26] MEDS: Potassium Chloride 20 MEQ TAB PO SCH (09:07)
[2018-01-26] MEDS: Lactinex Tablet PO SCH (09:08)
--- NOTE | 2018-01-26 10:26 | PDOC.PN ---
- Subjective Encounter Start Date: 01/26/18 Encounter Start Time: 12:10 Subjective: Patient reports breathing better. Does have nasal congestion and -: asking about nasal saline spray. No new complaints. - Objective MAR Reviewed: Yes Vital Signs & Weight: Vital Signs (12 hours) Temp Pulse Resp BP BP Pulse Ox 01/26/18 07:57 98.1 F 90 14 95 01/26/18 07:15 98.1 F 84 20 185/110 H 95 01/26/18 04:00 96.3 F L 85 15 133/81 97 01/26/18 02:39 98 01/26/18 02:38 68 15 98 01/26/18 00:00 97.8 F 74 16 132/75 93 L 01/25/18 22:36 81 21 H 97 Weight Weight 307 lb 5 oz Most Recent Monitor Data Heart Rate from ECG 128 NIBP 147/84 NIBP BP-Mean 140 Respiration from ECG 22 SpO2 95 I&O: 01/25/18 01/26/18 01/27/18 06:59 06:59 06:59 Intake Total 360 Output Total 1100 925 Balance -740 -925 Result Diagrams: 01/25/18 05:15 01/25/18 05:15 Phys Exam - Physical Examination Constitutional: NAD HEENT: moist MMs Respiratory: no rales, no rhonchi, wheezing present Decent air movement throughout Cardiovascular: RRR, no significant murmur Gastrointestinal: soft, positive bowel sounds Neurological: non-focal, moves all 4 limbs Psychiatric: normal affect, A&O x 3 Dx/Plan (1) Acute and chronic respiratory failure Code(s): J96.20 - ACUTE AND CHR RESP FAILURE, UNSP W HYPOXIA OR HYPERCAPNIA Status: Acute Qualifiers: Respiratory failure complication: hypoxia and hypercapnia Qualified Code(s) : J96.21 - Acute and chronic respiratory failure with hypoxia; J96.22 - Acute and chronic respiratory failure with hypercapnia; J96.22 - Acute and chronic respiratory failure with hypercapnia; J96.22 - Acute and chronic respiratory failure with hypercapnia Comment: Steroids, nebs, mucinex, abx. Pulm following. Out in IMCU. Utilizing BiPAP. (2) COPD with exacerbation Code(s): J44.1 - CHRONIC OBSTRUCTIVE PULMONARY DISEASE W (ACUTE) EXACERBATION Status: Acute (3) Anxiety and depression Code(s): F41.9 - ANXIETY DISORDER, UNSPECIFIED; F32.9 - MAJOR DEPRESSIVE DISORDER, SINGLE EPISODE, UNSPECIFIED Status: Chronic (4) Chronic anticoagulation Code(s): Z79.01 - ENVIRONMENTAL EPIDEMIOLOGIST (CURRENT) USE OF ANTICOAGULANTS Status: Chronic (5) GERD (gastroesophageal reflux disease) Code(s): K21.9 - GASTRO-ESOPHAGEAL REFLUX DISEASE WITHOUT ESOPHAGITIS Status: Chronic Qualifiers: Esophagitis presence: without esophagitis Qualified Code(s): K21.9 - Gastro -esophageal reflux disease without esophagitis Comment: has severe ulcerations seen on egd 12/20/16, asymptomatic now. continue GI prophylaxis (6) H/O deep venous thrombosis Code(s): Z86.718 - PERSONAL HISTORY OF OTHER VENOUS THROMBOSIS AND EMBOLISM Status: Chronic (7) Hypertension Code(s): I10 - ESSENTIAL (PRIMARY) HYPERTENSION Status: Chronic Qualifiers: Hypertension type: essential hypertension Qualified Code(s): I10 - Essential (primary) hypertension (8) Morbid obesity with BMI of 45.0-49.9, adult Code(s): E66.01 - MORBID (SEVERE) OBESITY DUE TO EXCESS CALORIES; Z68.42 - BODY MASS INDEX (BMI) 45.0-49.9, ADULT Status: Chronic (9) NICK (obstructive sleep apnea) Code(s): G47.33 - OBSTRUCTIVE SLEEP APNEA (ADULT) (PEDIATRIC) Status: Chronic Comment: on cpap - Plan cont current plan of care, continue antibiotics, DVT proph w/SCDs * . - Discharge Day Encounter end time: 12:25
[2018-01-26] MEDS ORDERED: Sodium Chloride 0.65% Nasal 44 ML BOT EA NARE PRN (15:54)
--- NOTE | 2018-01-26 16:01 | PRG ---
DATE OF SERVICE: 01/26/2018 SUBJECTIVE: Ms. Rojas doing well overnight, says she is feeling better. She is sitting up in the bianca ir at the bedside. OBJECTIVE: VITAL SIGNS: She is afebrile, heart rate 95, respiratory rate 23, oximetry is 90 on 2 liters, and bl ood pressure is 184/96. LUNGS: Remarkable for diffuse wheezes. HEART: Regular rhythm. ABDOMEN: Soft. Her wheezes are improved. LABORATORY DATA: There is no new lab today. IMPRESSION: Chronic obstructive pulmonary disease exacerbation. PLAN: Transfer out of intermediate care to a medical bed. Hopefully, she will be a candidate to go home in 1-2 days.
[2018-01-26] MEDS: ALPRAZolam 0.25 MG TAB PO PRN (18:09)
[2018-01-26] MEDS: Montelukast Sodium 10 mg Tablet PO SCH (19:59)
[2018-01-27 04:23] LABS: INR-International Normal Ratio 3.1; Prothrombin Time 33.3 SEC (12.0-14.7)
[2018-01-27] MEDS: Lactinex Tablet PO SCH (07:53)
[2018-01-27] MEDS: Multivit, Therapeutic 1 TAB PO SCH (07:54)
[2018-01-27] MEDS: predniSONE 20 MG TAB PO SCH (07:54)
[2018-01-27] MEDS: PARoxetine 20 MG TAB PO SCH (07:54)
[2018-01-27] MEDS: guaiFENesin ER 600 MG TAB PO SCH ×2 (07:54→20:58)
[2018-01-27] MEDS: Potassium Chloride 20 MEQ TAB PO SCH (07:55)
--- NOTE | 2018-01-27 12:04 | PDOC.PN ---
- Subjective Encounter Start Date: 01/27/18 Encounter Start Time: 12:00 Subjective: minimal sob, cough. no fever - Objective MAR Reviewed: Yes Vital Signs & Weight: Vital Signs (12 hours) Temp Pulse Resp BP Pulse Ox 01/27/18 08:00 98.0 F 117 H 20 94 L 01/27/18 07:04 98.0 F 117 H 20 156/91 H 94 L 01/27/18 06:33 89 18 97 01/27/18 04:00 97.7 F 90 20 165/98 H 97 01/27/18 02:12 90 18 96 01/27/18 02:08 90 01/27/18 02:02 93 L 01/27/18 00:37 97.7 F 90 20 96 Weight Weight 308 lb Most Recent Monitor Data Heart Rate from ECG 128 NIBP 147/84 NIBP BP-Mean 140 Respiration from ECG 22 SpO2 95 I&O: 01/26/18 01/27/18 01/28/18 06:59 06:59 06:59 Intake Total 30 Output Total 925 Balance -925 30 Result Diagrams: 01/25/18 05:15 01/25/18 05:15 Phys Exam - Physical Examination Neck: no JVD Respiratory: clear to auscultation bilateral BS distant Cardiovascular: RRR, no significant murmur Gastrointestinal: soft, positive bowel sounds Musculoskeletal: edema present Dx/Plan (1) Acute and chronic respiratory failure Code(s): J96.20 - ACUTE AND CHR RESP FAILURE, UNSP W HYPOXIA OR HYPERCAPNIA Status: Acute Qualifiers: Respiratory failure complication: hypoxia and hypercapnia Qualified Code(s) : J96.21 - Acute and chronic respiratory failure with hypoxia; J96.22 - Acute and chronic respiratory failure with hypercapnia; J96.22 - Acute and chronic respiratory failure with hypercapnia; J96.22 - Acute and chronic respiratory failure with hypercapnia Comment: Steroids, nebs, mucinex, abx. Pulm following. Out in IMCU. Utilizing BiPAP. (2) COPD with exacerbation Code(s): J44.1 - CHRONIC OBSTRUCTIVE PULMONARY DISEASE W (ACUTE) EXACERBATION Status: Acute (3) Pleural effusion Code(s): J90 - PLEURAL EFFUSION, NOT ELSEWHERE CLASSIFIED Status: Acute (4) Anxiety and depression Code(s): F41.9 - ANXIETY DISORDER, UNSPECIFIED; F32.9 - MAJOR DEPRESSIVE DISORDER, SINGLE EPISODE, UNSPECIFIED Status: Chronic (5) Chronic anticoagulation Code(s): Z79.01 - PRISON (CURRENT) USE OF ANTICOAGULANTS Status: Chronic (6) GERD (gastroesophageal reflux disease) Code(s): K21.9 - GASTRO-ESOPHAGEAL REFLUX DISEASE WITHOUT ESOPHAGITIS Status: Chronic Qualifiers: Esophagitis presence: without esophagitis Qualified Code(s): K21.9 - Gastro -esophageal reflux disease without esophagitis Comment: has severe ulcerations seen on egd 12/20/16, asymptomatic now. continue GI prophylaxis (7) Hypertension Code(s): I10 - ESSENTIAL (PRIMARY) HYPERTENSION Status: Chronic Qualifiers: Hypertension type: essential hypertension Qualified Code(s): I10 - Essential (primary) hypertension (8) Morbid obesity with BMI of 45.0-49.9, adult Code(s): E66.01 - MORBID (SEVERE) OBESITY DUE TO EXCESS CALORIES; Z68.42 - BODY MASS INDEX (BMI) 45.0-49.9, ADULT Status: Chronic (9) NICK (obstructive sleep apnea) Code(s): G47.33 - OBSTRUCTIVE SLEEP APNEA (ADULT) (PEDIATRIC) Status: Chronic Comment: on cpap - Plan cont O2, prednisone, duoneb, antibx -: cont warfarin( INR therapeutic) -: cont lasix, diltiazem for HTN * .
--- NOTE | 2018-01-27 17:23 | PRG ---
DATE OF SERVICE: 01/27/2018 SUBJECTIVE: Ms. Rojas continues to do well. Her sister and her both think she will be stable to go home tomorrow. She is afebrile, heart rate is 85, respiratory rate is 18, oximetry is 96 on 3 liters , blood pressure 156/91. Lungs are clear. Heart, regular rhythm. Abdomen is soft. There is no new lab today. She bragged to me that she was eating half her portions from her plate with each meal, but she also h ad a tub of [employer] ice creams, sitting in front of her when she was telling me this. Her sist er brought her this after I told her in front of her sister that she is losing weight with something her life depended on. Even I suspect she will be stable to be discharged home in the morning. I darvin l follow her probably in 3-4 weeks after discharge in the office. Set her up with a prednisone taper in the morning. She is still on warfarin for DVT. Her INR is 3.1 today and was 3.4 yesterday.
[2018-01-27] MEDS: ALPRAZolam 0.25 MG TAB PO PRN (17:42)
[2018-01-27] MEDS: Montelukast Sodium 10 mg Tablet PO SCH (20:58)
[2018-01-28 05:41] LABS: INR-International Normal Ratio 2.5; Prothrombin Time 27.8 SEC (12.0-14.7)
[2018-01-28 07:54] VITALS: BP 145/74; TEMP 98.1
[2018-01-28] MEDS: guaiFENesin ER 600 MG TAB PO SCH (08:30)
[2018-01-28] MEDS: predniSONE 20 MG TAB PO SCH (08:30)
[2018-01-28] MEDS: Potassium Chloride 20 MEQ TAB PO SCH (08:30)
[2018-01-28] MEDS: Multivit, Therapeutic 1 TAB PO SCH (08:30)
[2018-01-28] MEDS: PARoxetine 20 MG TAB PO SCH (08:31)
[2018-01-28] MEDS: Lactinex Tablet PO SCH (11:45)
--- NOTE | 2018-01-28 12:40 | DIS ---
DATE OF ADMISSION: 01/20/2018 DATE OF DISCHARGE: 01/28/2018 PRIMARY CARE PROVIDER: Telly Rollins M.D. DISPOSITION: Discharged home. FINAL DIAGNOSES: Acute on chronic respiratory failure with hypoxia; chronic obstructive pulmonary di sease; chronic kidney disease, stage 3; hypertension; atrial fibrillation, chronic anticoagulation. DISCHARGE MEDICATIONS: Tessalon 200 mg b.i.d. p.r.n., hydrochlorothiazide 50 mg p.o. daily p.r.n., L asix 40 mg p.o. daily p.r.n., Reglan 10 mg p.o. b.i.d. p.r.n., tramadol 50 mg daily p.r.n., warfarin 3 mg daily at 1700 hours, Restoril 30 mg p.o. at bedtime p.r.n., promethazine 25 mg p.o. q.6 hours p. r.n. nausea, Klor-Con 20 one a day, probiotic 1 a day, DuoNeb 3 mL q.i.d. daily, hydrocodone 5/325 on e or two tablets every 6 hours as needed for pain, Colace 100 mg p.o. daily, Flexeril 10 mg p.o. t.i. d. p.r.n., Xanax 0.25 mg p.o. daily p.r.n., budesonide 0.5 mg nebulized b.i.d., Paxil 10 mg every mor sloan, diltiazem 180 q.a.m., Protonix 40 mg a day, fish oil 1 tablet daily, prednisone 40 mg a day for 7 days and then decrease to 20 mg, Singulair 10 mg a day, Levaquin 500 mg p.o. daily x5 days. ALLERGIES: PENICILLINS, ZOFRAN, CEPHALOSPORINS, CIPRO, but able to take Levaquin, clindamycin, codei ne, metronidazole, sulfa. PENDING AT THE TIME OF DISCHARGE: Nothing. CODE STATUS: FULL. HOSPITAL COURSE: Patient with a history of COPD, O2-dependent, steroid dependent, presents with shor tness of breath. She was placed on BiPAP in the emergency room, moved to [facility]. She was seen in cons ultation by Dr. Romero Caro, her [employer]. She has been treated aggressively with steroids, an tibiotics, frequent nebulizers. Her maintenance medicines for hypertension, atrial fibrillation, ant icoagulation have been maintained. Her laboratory on admission revealed a white count of 9.5, platel et count 206,000, hemoglobin 11.5. Her white count has gone up with intensive steroid therapy as hig h as 14.4. Her INRs remained stable, currently at 2.5. Arterial blood gas showed only hypoxemia. E lectrolytes have been steady. Renal function has been 50-60, chronic kidney disease, stage 3 level. She has improved slowly during her hospital stay. She is currently to reach to baseline status. Sh e has been deescalated to oral antibiotics, oral prednisone. She is on DuoNeb 4 times a day. She wi ll be continued on these medications. She is being discharged to be followed up in 1 week by her PCP , followed up in 3-[address] Caro. I am de-escalating her steroids slowly. She will be on 40 mg until she sees her PCP in 1 week. It is up to him to continue de-escalation profile at that time. I have written a prescription so that she will change to 20 mg in 1 week. No procedures were done. She is stable at the time of discharge. Lungs are clear. Respiratory rate is 16-20. She has had a mild tachycardia at 100-105. She is on 3 liters of O2 by nasal cannula.
--- NOTE | 2018-01-28 16:37 | PRG ---
DATE OF SERVICE: 01/28/2018 SUBJECTIVE: Elvira is clear today. OBJECTIVE: GENERAL: On exam, she feels she is ready to go home. VITAL SIGNS: Her vital signs have been stable. LUNGS: Her lungs are clear. HEART: Regular rhythm. ABDOMEN: Soft. She was treated with Levaquin, so we will discontinue this at discharge. She has had an adequate cou rse. She will take prednisone 40 for 4 more days and go to 20 mg a day for a week and then back to h er baseline of 10 mg a day. She was encouraged to ambulate at home. She is also encouraged to calor ie count. I believe she is stable for discharge.
[2018-01-28] MEDS ORDERED: Warfarin Sodium 3 MG TAB PO SCH (17:00)
== END 2018-01-28 14:17 | disposition home or self-care (01) | DRG 189 ==
LOC: ERS 21:15 → IMCU/EMU 22:56 → ONC 01-21 13:18 → CCU 01-22 14:39 → IMCU/EMU 01-24 11:09 → T4-A 01-26 20:37
PROVIDERS: ADMIT Internal Medicine; ATTEND Internal Medicine
DX: J96.21 Acute and chronic respiratory failure with hypoxia (principal); Q61.3 Polycystic kidney, unspecified; J44.1 Chronic obstructive pulmonary disease with (acute) exacerbation; J90 Pleural effusion, not elsewhere classified; I12.9 Hypertensive chronic kidney disease with stage 1 through stage 4 chronic kidney disease, or unspecified chronic kidney disease; N18.3 Chronic kidney disease, stage 3 (moderate); I48.91 Unspecified atrial fibrillation; Z79.01 Long term (current) use of anticoagulants; Z79.51 Long term (current) use of inhaled steroids; Z88.1 Allergy status to other antibiotic agents; Z88.0 Allergy status to penicillin; Z88.8 Allergy status to other drugs, medicaments and biological substances; Z99.81 Dependence on supplemental oxygen; G47.33 Obstructive sleep apnea (adult) (pediatric); Z68.38 Body mass index [BMI] 38.0-38.9, adult; K21.9 Gastro-esophageal reflux disease without esophagitis; M19.90 Unspecified osteoarthritis, unspecified site; Z86.718 Personal history of other venous thrombosis and embolism; Z90.710 Acquired absence of both cervix and uterus; Z79.52 Long term (current) use of systemic steroids; Z88.2 Allergy status to sulfonamides; Z86.73 Personal history of transient ischemic attack (TIA), and cerebral infarction without residual deficits; F41.9 Anxiety disorder, unspecified; F32.9 Major depressive disorder, single episode, unspecified; Z88.5 Allergy status to narcotic agent; J40 Bronchitis, not specified as acute or chronic; E66.01 Morbid (severe) obesity due to excess calories
CPT/HCPCS: 36415; 71045; 80048; 80053; 82553; 82805; 83735; 83880; 84484; 85025; 85610; 93005; 94640; 94660; 96365; 96367; 96375; G8978-GP-CI; G8978-GP-CL; G8979-GP-CI; G8979-GP-CJ; G8987-GO-CJ; J0360; J0456; J2920; J2930; J3475; J7050; J7506; J7608; J7611; J7620

== ENCOUNTER 2018-02-03 09:23 | Outpatient (CLI) | payer MEDICARE, BC ==
--- NOTE | 2018-02-03 10:15 | RAD ---
ABDOMEN 1 VIEW: HISTORY: Renal stones. COMPARISON: 08/24/17. FINDINGS: A large amount of stool is apparent throughout the colon and rectum. There is gaseous distention of the small and large bowel. Renal outlines are obscured. No urinary tract calcifications are evident . Phleboliths project over the pelvis in similar distribution to the previous exam. Metallic coils over the abdomen have the appearance of mesh material markers. IMPRESSION: Constipation. A large amount of bowel gas obscures the urinary system. No stones are reliably demon strated radiographically. POS: RUDY
== END 2018-02-03 09:24 | disposition home or self-care (01) ==
LOC: RAD 09:23
PROVIDERS: ATTEND Urology
DX: N20.0 Calculus of kidney (principal); K59.00 Constipation, unspecified
CPT/HCPCS: 36415; 74018; 81001; 84550; 85610; 87086

== ENCOUNTER 2018-02-07 21:36 | Inpatient (IN) | payer MEDICARE, BC ==
[2018-02-07] MEDS ORDERED: Magnesium Sulfate 2 GM/100 ML BAG ONE (21:50)
[2018-02-07] MEDS ORDERED: methylPREDNISolone Sod Succ/PF 125 MG/2 ML VIAL ONE (21:50)
[2018-02-07 22:11] LABS: #Eosinphils 0.1 thou/uL (0.0-0.7); #Lymphocytes 1.1 thou/uL (1.20-3.40); #Monocytes 0.4 thou/uL (0.11-0.59); #Neutrophils 12.9 thou/uL (1.40-6.50); %Basophils 0.1 % (0.0-1.0); %Eosinophils 0.4 % (0.0-10.0); %Lymphocytes 7.5 % (21.0-51.0); %Monocytes 2.6 % (0.0-10.0); %Neutrophils 89.3 % (42.0-75.0); Hemoglobin 12.8 g/dL (12.0-16.0); Mean Corpuscular HGB CONC 32.2 g/dL (32.0-36.0); Mean Corpuscular Hemoglobin 29.1 pg (27.0-31.0); Mean Corpuscular Volume 90.4 fl (81.0-99.0); Mean Platelet Volume 7.4 fL (7.4-10.4); Platelet Count 143 thou/uL (130-400); RBC Distribution Width 14.8 % (11.5-14.5); Red Blood Cell (RBC) Count 4.41 mill/uL (4.20-5.40); White Blood Cell (WBC) Count 14.4 thou/uL (4.8-10.8)
[2018-02-07 22:32] LABS: ALT (SGPT) 25 U/L (8-55); AST (SGOT) 21 U/L (5-34); Albumin 3.7 g/dL (3.4-4.8); Alkaline Phosphatase 62 U/L (40-150); Anion Gap 13 mmol/L (10-20); BUN (Urea Nitrogen) 17 mg/dL (9.8-20.1); Bilirubin, Total 0.8 mg/dL (0.2-1.2); Calc. Creatinine Clearance 0 mL/min (70-130); Calcium 8.8 mg/dL (7.8-10.44); Carbon Dioxide 26 mmol/L (23-31); Chloride 106 mmol/L (98-107); Estimated GFR-MDRD 62; Globulin 2.6 g/dL (2.4-3.5); Glucose 196 mg/dL (80-115); Magnesium 1.8 mg/dL (1.6-2.6); Potassium 4.2 mmol/L (3.5-5.1); Protein, Total 6.3 g/dL (6.0-8.3); Sodium 141 mmol/L (136-145)
[2018-02-07 22:35] LABS: CKMB 1.1 ng/mL (0-6.6); Troponin I Less than 0.010 ng/mL (< 0.028)
[2018-02-07 22:42] LABS: BHCG - Serum Negative (NEGATIVE); Pregs Control Background? CLEAR/WHITE (CLR/WHITE); Pregs Control Bar Appear? YES (CONTROL BAR)
--- NOTE | 2018-02-07 22:47 | RAD ---
FRONTAL VIEW CHEST: Comparison: 01-23-28 History: Shortness of breath. FINDINGS: There are patchy bibasilar densities, similar when compared to prior exam. Cardiac silhouette is stab le. There remains prominence of the perihilar regions, more notable on the right. IMPRESSION: Grossly stable chest with persistent bibasilar opacities and prominent mediastinal silhouette. Recommend continued imaging follow up. POS: RUDY
[2018-02-07] MEDS ORDERED: Levofloxacin 500 mg/D5W 100 ml Premix Bag ONE (23:36)
[2018-02-07] MEDS ORDERED: Furosemide 40 MG/4 ML VIAL ONE (23:36)
[2018-02-08] MEDS ORDERED: Ondansetron HCl/PF 4 MG/2 ML Vial IVP PRN (01:37)
[2018-02-08] MEDS ORDERED: Ondansetron ODT 4 MG TAB SL PRN (01:37)
[2018-02-08] MEDS ORDERED: Acetaminophen 325 MG TAB PO PRN (01:37)
[2018-02-08 01:42] LABS: Troponin I Less than 0.010 ng/mL (< 0.028)
--- NOTE | 2018-02-08 02:11 | HP ---
PRIMARY CARE PHYSICIAN: Dr. Terry Mcclelland. CHIEF COMPLAINT: Shortness of breath. HISTORY OF PRESENT ILLNESS: Ms. Rojas is a very pleasant 63-year-old female that has a history of ch ronic respiratory failure with hypoxemia due to COPD. She is also steroid dependent as well as oxyge n dependent. She was actually recently discharged from our facility about 10 days ago and at that ti me, she was admitted with a COPD exacerbation. The patient says that she was doing well until today earlier. She says that she began feeling extremely short of breath. She also felt some tightness in her chest, which then radiated to her mid back. She also noticed that she was having a cough and sh e could tell, she had some thick phlegm in her chest, but could not get it up. She also was feeling warm, but had no chills. Her shortness of breath got progressively worse to the point where she had to call EMS. She was basically an extremist when she arrived at the emergency room. She was placed on BiPAP and she is being admitted for further evaluation and treatment. REVIEW OF SYSTEMS: Constitutional: She denies any chills, but has had some subjective fever, no nig ht sweats, no weight loss. HEENT: No headaches, no dizziness, no visual changes, no sore throat, no rhinorrhea, neck pain, no adenopathy. Pulmonary: As stated in the history of present illness. She denies any hemoptysis, no significant wheezing. Cardiovascular: She has had some tightness in her chest radiating to the back. No PND, no orthopnea. Gastrointestinal: No abdominal pain, no nausea, no vomiting, no change in bowels. Genitourinary: No urinary frequency, hematuria, no hesitancy. N eurologic: No focal weakness, numbness, no seizures. Psychiatric: No symptoms of anxiety or depres aubree. Skin and Integument: She does notice increasing lower extremity edema over the last few days. PAST MEDICAL HISTORY: Significant for chronic respiratory failure secondary to chronic obstructive p ulmonary disease and this is with hypoxic, hypoxemia, steroid-dependent, asthma, obstructive sleep ap kailee, morbid obesity, hypertension, gastroesophageal reflux disease, osteoarthritis, polycystic kidney disease, and history of previous deep vein thrombosis. PAST SURGICAL HISTORY: Significant for partial colon resection, renal stone extraction, ganglion cys t removal, hernia repair, liver mass removal, ruptured disk repair, and hysterectomy. ALLERGIES: PENICILLIN, ZOFRAN, CIPRO, but can take LEVOFLOXACIN, CLINDAMYCIN, FLAGYL, SULFA, and CIP ROZOLE. FAMILY HISTORY: No history of any inheritable diseases. SOCIAL HISTORY: She is a former smoker. She is a nondrinker. Denies any drug use. CURRENT MEDICATIONS: Include Tessalon Perles 200 mg twice a day as needed, hydrochlorothiazide 50 mg daily, Lasix 40 mg daily, Reglan 10 mg twice a day as needed, tramadol 50 mg daily, warfarin 3 mg da kizzy, Restoril 30 mg at bedtime, promethazine 25 mg as needed, Klor-Con 20 mEq, probiotic daily, DuoNe bs p.r.n., hydrocodone 5/325 q.6 as needed, Colace 100 mg daily, Flexeril 10 mg t.i.d., Xanax 0.25 mg daily, budesonide nebulized twice a day, Paxil 10 mg daily, diltiazem 180 mg daily, Protonix 40 mg d aily, fish oil daily, prednisone 20 mg daily, Singulair 10 mg daily. PHYSICAL EXAMINATION: GENERAL: She is alert and oriented. She is currently on BiPAP. She appears to be in some mild dist ress due to dyspnea. VITAL SIGNS: Blood pressure was initially 176/131 more recently 139/81, heart rate 118, respiratory rate of 24 and she is afebrile. HEENT: Pupils are equal, round, and reactive. Extraocular muscles are intact. Her sclerae are anic teric. Throat no erythema, no exudates. NECK: No adenopathy, no bruits. LUNGS: She has got tight wheezing bilaterally and some rales at the base. CARDIAC: Heart rate is regular, tachycardic. There is no murmurs, clicks, no rubs. ABDOMEN: Obese. It is soft, it is nontender, nondistended. Positive for bowel sounds. No rebound or guarding. EXTREMITIES: She has got 2-3+ pitting edema. The right is much more than the left, some mild erythe ma of the lower extremities. NEUROLOGICALLY: The exam is grossly nonfocal. LABORATORY RESULTS: White blood cell count is 14.4, hemoglobin 12.8, hematocrit is 39.9, platelet co unt is 143. Sodium 141, potassium 4.2, chloride is 106, CO2 is 26, BUN of 17, creatinine 0.92, gluco se is 196. Troponin is less than 0.010. Chest x-ray, there was some patchy bibasilar densities. Ca rdiac silhouette is mildly enlarged. ASSESSMENT AND PLAN: This is a pleasant 63-year-old female that is being admitted for acute on chron ic respiratory failure secondary to chronic obstructive pulmonary disease. She will be admitted to [facility]. We will continue her on BiPAP as well as IV steroids, DuoNebs, and empiric antibiotics inha led long-acting beta agonist. Given the severity of her chronic obstructive pulmonary disease, her p ulmonologist will be consulted. 1. The patient will be maintained on her usual antihypertensive medications as well as p.r.n. medica tions as needed. 2. History of deep venous thrombosis. We will continue warfarin and monitor her PT and INR closely. Code status was discussed with the patient and she says she would like to be a FULL CODE and she is her own decision maker. She has not designated anyone else except for Dr. Caro who she says can di rect her care if she is unable to.
[2018-02-08] MEDS ORDERED: Furosemide 40 MG TAB PO PRN (02:18)
[2018-02-08] MEDS ORDERED: Mag-Al 1200 mg/1200 mg/30 ML UDCUP PO PRN (02:18)
[2018-02-08] MEDS ORDERED: ALPRAZolam 0.25 MG TAB PO PRN (02:18)
[2018-02-08] MEDS ORDERED: Milk Of Magnesia 30 ML UDCUP PO PRN (02:18)
[2018-02-08] MEDS ORDERED: Polyethylene Glycol 3350 17 GM Packet PO PRN (02:18)
[2018-02-08] MEDS ORDERED: Benzonatate 100 MG CAP PO PRN (02:18)
[2018-02-08] MEDS ORDERED: Metoclopramide HCl 10 MG TAB PO PRN (02:18)
[2018-02-08 05:09] LABS: #Basophils 0.1 thou/uL (0.0-0.2); #Lymphocytes 0.4 thou/uL (1.20-3.40); #Neutrophils 9.3 thou/uL (1.40-6.50); %Basophils 1.1 % (0.0-1.0); %Eosinophils 0.4 % (0.0-10.0); %Lymphocytes 3.8 % (21.0-51.0); %Monocytes 0.3 % (0.0-10.0); %Neutrophils 94.4 % (42.0-75.0); Hemoglobin 11.8 g/dL (12.0-16.0); Mean Corpuscular HGB CONC 31.5 g/dL (32.0-36.0); Mean Corpuscular Hemoglobin 28.4 pg (27.0-31.0); Mean Corpuscular Volume 90.1 fl (81.0-99.0); Mean Platelet Volume 8.3 fL (7.4-10.4); Platelet Count 132 thou/uL (130-400); RBC Distribution Width 14.5 % (11.5-14.5); Red Blood Cell (RBC) Count 4.17 mill/uL (4.20-5.40); White Blood Cell (WBC) Count 9.8 thou/uL (4.8-10.8)
[2018-02-08 05:13] LABS: INR-International Normal Ratio 3.5
[2018-02-08 05:35] LABS: Troponin I Less than 0.010 ng/mL (< 0.028)
[2018-02-08 05:39] LABS: Anion Gap 12 mmol/L (10-20); BUN (Urea Nitrogen) 17 mg/dL (9.8-20.1); Calc. Creatinine Clearance 159 mL/min (70-130); Calcium 8.6 mg/dL (7.8-10.44); Carbon Dioxide 28 mmol/L (23-31); Chloride 105 mmol/L (98-107); Estimated GFR-MDRD 70; Glucose 204 mg/dL (80-115); Potassium 3.5 mmol/L (3.5-5.1); Sodium 141 mmol/L (136-145)
[2018-02-08] MEDS: Arformoterol 15 MCG/2 ML NEB NEB SCH ×2 (07:02→19:04)
[2018-02-08] MEDS: Docusate 100 MG CAP PO SCH ×2 (08:40→20:20)
--- NOTE | 2018-02-08 14:59 | PDOC.PN ---
- Subjective Encounter Start Date: 02/08/18 Encounter Start Time: 10:00 Continues to be SOB, but requests food. - Objective Resuscitation Status: Resuscitation Status FULL:Full Resuscitation Vital Signs & Weight: Vital Signs (12 hours) Temp Pulse Resp Pulse Ox 02/08/18 13:45 85 21 H 99 02/08/18 12:00 98.4 F 02/08/18 08:00 98.1 F 02/08/18 07:39 98.1 F 87 20 97 02/08/18 06:59 87 02/08/18 06:57 87 20 99 02/08/18 04:00 98.0 F 02/08/18 03:18 100 Weight Weight 312 lb 2.793 oz Most Recent Monitor Data Heart Rate from ECG 102 NIBP 153/88 NIBP BP-Mean 104 Respiration from ECG 21 SpO2 94 I&O: 02/07/18 02/08/18 02/09/18 06:59 06:59 06:59 Intake Total 360 Output Total 1250 450 Balance -1250 -90 Result Diagrams: 02/08/18 04:53 02/08/18 04:53 Phys Exam - Physical Examination Constitutional: NAD HEENT: PERRLA On Bipap mask. Neck: no nodes, no JVD Severely diminished BS throughout. Cardiovascular: RRR, no significant murmur Gastrointestinal: soft, non-tender 3+ bilateral LE pitting edema Dx/Plan (1) Acute and chronic respiratory failure Code(s): J96.20 - ACUTE AND CHR RESP FAILURE, UNSP W HYPOXIA OR HYPERCAPNIA Status: Acute Qualifiers: Respiratory failure complication: hypoxia and hypercapnia Qualified Code(s) : J96.21 - Acute and chronic respiratory failure with hypoxia; J96.22 - Acute and chronic respiratory failure with hypercapnia; J96.22 - Acute and chronic respiratory failure with hypercapnia; J96.22 - Acute and chronic respiratory failure with hypercapnia Comment: Steroids, nebs, mucinex, abx. Pulm following. Out in IMCU. Utilizing BiPAP. (2) COPD with exacerbation Code(s): J44.1 - CHRONIC OBSTRUCTIVE PULMONARY DISEASE W (ACUTE) EXACERBATION Status: Acute (3) Peripheral edema Code(s): R60.9 - EDEMA, UNSPECIFIED Status: Acute (4) Anxiety and depression Code(s): F41.9 - ANXIETY DISORDER, UNSPECIFIED; F32.9 - MAJOR DEPRESSIVE DISORDER, SINGLE EPISODE, UNSPECIFIED Status: Chronic (5) Chronic anticoagulation Code(s): Z79.01 - WHEEL ALIGNER (CURRENT) USE OF ANTICOAGULANTS Status: Chronic (6) GERD (gastroesophageal reflux disease) Code(s): K21.9 - GASTRO-ESOPHAGEAL REFLUX DISEASE WITHOUT ESOPHAGITIS Status: Chronic Qualifiers: Esophagitis presence: without esophagitis Qualified Code(s): K21.9 - Gastro -esophageal reflux disease without esophagitis Comment: has severe ulcerations seen on egd 12/20/16, asymptomatic now. continue GI prophylaxis (7) H/O deep venous thrombosis Code(s): Z86.718 - PERSONAL HISTORY OF OTHER VENOUS THROMBOSIS AND EMBOLISM Status: Chronic (8) Hypertension Code(s): I10 - ESSENTIAL (PRIMARY) HYPERTENSION Status: Chronic Qualifiers: Hypertension type: essential hypertension Qualified Code(s): I10 - Essential (primary) hypertension (9) Morbid obesity with BMI of 45.0-49.9, adult Code(s): E66.01 - MORBID (SEVERE) OBESITY DUE TO EXCESS CALORIES; Z68.42 - BODY MASS INDEX (BMI) 45.0-49.9, ADULT Status: Chronic (10) NICK (obstructive sleep apnea) Code(s): G47.33 - OBSTRUCTIVE SLEEP APNEA (ADULT) (PEDIATRIC) Status: Chronic Comment: on cpap - Plan * . Significant edema without elevated BNP or low albumin. Continue with diuresis and aggressive management of COPD exac and respiratory failure with bronchodilators, Bipap with supplemental oxygen, IV Levaquin and solumedrol. Pulmonology following.
[2018-02-08] MEDS ORDERED: Warfarin Sodium 3 MG TAB PO SCH (17:00)
--- NOTE | 2018-02-08 17:54 | CON ---
DATE OF CONSULTATION: 02/08/2018 SUBJECTIVE: Ms. Rojas returns short of breath. She just was released from the hospital recently. At this point, her blood pressure 156/93, respirat ory rates in the 20s, oximetry is in the 90s, heart rate in the 90s. She appears to be in sinus rhyt hm with frequent PVCs and PACs. Her intake and output is negative 1250. OBJECTIVE: LUNGS: Remarkable for diffuse to high wheezes. HEART: Regular rhythm. ABDOMEN: Soft. EXTREMITIES: Without clubbing, cyanosis or edema. IMPRESSION: 1. Chronic obstructive pulmonary disease exacerbation with recent hospitalization. I see no infiltr ates to suggest a pneumonia. I do not see a radiograph. My opinion consistent with cardiogenic pulm onary edema. 2. History of sleep apnea, compliant with CPAP at home. 3. Obesity with extreme deconditioning, which is her biggest issue in my opinion. She should stay in the critical care unit for now. I suspect she will require more noninvasive venti latory support on and off today and tonight, may be we can leave her to a stepdown bed tomorrow. Critical care time was 30 minutes.
[2018-02-08] MEDS ORDERED: Furosemide 40 MG/4 ML VIAL SLOW IVP SCH (19:00)
[2018-02-08] MEDS: ALPRAZolam 0.25 MG TAB PO PRN (19:01)
[2018-02-08] MEDS: Montelukast Sodium 10 mg Tablet PO SCH (20:20)
[2018-02-09] MEDS: hydrALAZINE 20 MG/ML VIAL SLOW IVP PRN ×3 (00:08→13:10)
[2018-02-09] MEDS: ALPRAZolam 0.25 MG TAB PO PRN ×2 (02:00→10:11)
[2018-02-09 03:47] LABS: Actual Bicarbonate (HCO3a) 5.7 mEq/L (22-26); Base Excess (BEa) 31.1 mEq/L (0 (+/-) 2.5); CO2 Tension 48.3 mmHg (35.0-45.0); O2 Tension (PaO2) 81.3 mmHg (80.0-100.0); pH, Arterial 7.43 (7.35-7.45)
[2018-02-09 03:48] LABS: Calcium, Ionized 1.1 mmol/L (1.12-1.30); Hemoglobin (Hb) 12.5 g/dL (12.0-16.0)
[2018-02-09 03:49] LABS: ALV-art Gradient 107.875 (0-20); Puncture Site RRA
[2018-02-09 04:41] LABS: #Basophils 0.1 thou/uL (0.0-0.2); #Lymphocytes 0.5 thou/uL (1.20-3.40); #Monocytes 0.5 thou/uL (0.11-0.59); %Basophils 0.4 % (0.0-1.0); %Eosinophils 0.3 % (0.0-10.0); %Monocytes 3.6 % (0.0-10.0); %Neutrophils 91.7 % (42.0-75.0); Hemoglobin 12.4 g/dL (12.0-16.0); Mean Corpuscular HGB CONC 31.7 g/dL (32.0-36.0); Mean Corpuscular Hemoglobin 28.5 pg (27.0-31.0); Mean Corpuscular Volume 89.7 fl (81.0-99.0); Mean Platelet Volume 7.2 fL (7.4-10.4); Platelet Count 153 thou/uL (130-400); RBC Distribution Width 14.8 % (11.5-14.5); Red Blood Cell (RBC) Count 4.37 mill/uL (4.20-5.40); White Blood Cell (WBC) Count 13.1 thou/uL (4.8-10.8)
[2018-02-09 04:42] LABS: INR-International Normal Ratio 3.7; Prothrombin Time 38.3 SEC (12.0-14.7)
[2018-02-09 05:05] LABS: Anion Gap 13 mmol/L (10-20); BUN (Urea Nitrogen) 20 mg/dL (9.8-20.1); Calc. Creatinine Clearance 132 mL/min (70-130); Carbon Dioxide 31 mmol/L (23-31); Chloride 99 mmol/L (98-107); Estimated GFR-MDRD 56; Glucose 230 mg/dL (80-115); Potassium 3.7 mmol/L (3.5-5.1); Sodium 139 mmol/L (136-145)
[2018-02-09] MEDS: Arformoterol 15 MCG/2 ML NEB NEB SCH ×2 (07:57→19:11)
[2018-02-09] MEDS ORDERED: Benzonatate 100 MG CAP PO PRN (08:06)
--- NOTE | 2018-02-09 08:22 | PDOC.PN ---
- Subjective Encounter Start Date: 02/09/18 Encounter Start Time: 08:21 Not doing well at this time. Having some increased difficulty with breathing. She does indicate that she has had the afib in the past. Modest coughing. Not tolerating turning very well due to SOB. Not able to be off of the Bipap even briefly. - Objective Resuscitation Status: Resuscitation Status FULL:Full Resuscitation Vital Signs & Weight: Vital Signs (12 hours) Temp Pulse Resp BP Pulse Ox 02/09/18 08:00 104 H 02/09/18 07:57 105 H 18 99 02/09/18 07:55 98.5 F 105 H 22 H 99 02/09/18 07:00 98.5 F 02/09/18 05:06 110 H 171/121 H 02/09/18 04:00 98.6 F 02/09/18 02:14 101 H 02/09/18 00:08 96 178/108 H 02/09/18 00:00 96 02/08/18 21:31 102 H Weight Weight 313 lb 0.902 oz Most Recent Monitor Data Heart Rate from ECG 112 NIBP 147/95 NIBP BP-Mean 120 Respiration from ECG 27 SpO2 99 I&O: 02/08/18 02/09/18 02/10/18 06:59 06:59 06:59 Intake Total 910 0 Output Total 1250 2076 175 Balance -1250 -1165 -175 Result Diagrams: 02/09/18 03:53 02/09/18 03:53 Phys Exam - Physical Examination Fairly tachypneic. Grunting with inspiration. Grunting compromises exam, but diffuse rales and wheezes Irreg, tachy Firm, using abd muscles to breath. Decreased BS. Mildly TTP in upper abd. 3+ pitting edema above the knee bilaterally. Erythema to calves. Neurological: non-focal Deviation from normal: Anxious Dx/Plan (1) Acute and chronic respiratory failure Code(s): J96.20 - ACUTE AND CHR RESP FAILURE, UNSP W HYPOXIA OR HYPERCAPNIA Status: Acute Qualifiers: Respiratory failure complication: hypoxia and hypercapnia Qualified Code(s) : J96.21 - Acute and chronic respiratory failure with hypoxia; J96.22 - Acute and chronic respiratory failure with hypercapnia; J96.22 - Acute and chronic respiratory failure with hypercapnia; J96.22 - Acute and chronic respiratory failure with hypercapnia Comment: Steroids, nebs, mucinex, abx. Pulm following. Out in IMCU. Utilizing BiPAP. (2) COPD with exacerbation Code(s): J44.1 - CHRONIC OBSTRUCTIVE PULMONARY DISEASE W (ACUTE) EXACERBATION Status: Acute (3) Peripheral edema Code(s): R60.9 - EDEMA, UNSPECIFIED Status: Acute (4) Anxiety and depression Code(s): F41.9 - ANXIETY DISORDER, UNSPECIFIED; F32.9 - MAJOR DEPRESSIVE DISORDER, SINGLE EPISODE, UNSPECIFIED Status: Chronic (5) Chronic anticoagulation Code(s): Z79.01 - ESCAPEMENT MATCHER (CURRENT) USE OF ANTICOAGULANTS Status: Chronic (6) GERD (gastroesophageal reflux disease) Code(s): K21.9 - GASTRO-ESOPHAGEAL REFLUX DISEASE WITHOUT ESOPHAGITIS Status: Chronic Qualifiers: Esophagitis presence: without esophagitis Qualified Code(s): K21.9 - Gastro -esophageal reflux disease without esophagitis Comment: has severe ulcerations seen on egd 12/20/16, asymptomatic now. continue GI prophylaxis (7) H/O deep venous thrombosis Code(s): Z86.718 - PERSONAL HISTORY OF OTHER VENOUS THROMBOSIS AND EMBOLISM Status: Chronic (8) Hypertension Code(s): I10 - ESSENTIAL (PRIMARY) HYPERTENSION Status: Chronic Qualifiers: Hypertension type: essential hypertension Qualified Code(s): I10 - Essential (primary) hypertension (9) Morbid obesity with BMI of 45.0-49.9, adult Code(s): E66.01 - MORBID (SEVERE) OBESITY DUE TO EXCESS CALORIES; Z68.42 - BODY MASS INDEX (BMI) 45.0-49.9, ADULT Status: Chronic (10) NICK (obstructive sleep apnea) Code(s): G47.33 - OBSTRUCTIVE SLEEP APNEA (ADULT) (PEDIATRIC) Status: Chronic Comment: on cpap (11) Afib Code(s): I48.91 - UNSPECIFIED ATRIAL FIBRILLATION Status: Acute - Plan * . Currently the patient is having some increased difficulty. Continue with IV steroids, Levaquin and bronchodilators. Continue to manage anxiety. X-ray abdomen if she can tolerate it. Add PPI. Accuchecks secondary to hyperglycemia on labs and use of steroids. Probiotics. Continue to hold Coumadin secondary to increased INR. CXR Change Lasix to IV. Severe edema, but BNP is not significantly elevated and albumin is not bad. Likely some degree of right heart failure. May need echo if adequately stabilized. Consult Cardiology for a-fib. Likely exacerbated by nebs. - Discharge Day Minutes spent coordinating discharge of patient: 37
[2018-02-09] MEDS ORDERED: Magnesium Sulfate 3 GM, Admixture Fee 1 EACH in Sodium Chloride 0.9% 100 ML IVPB SCH (08:45)
[2018-02-09] MEDS ORDERED: Dextrose 5% in Water 1,000 ML IV PRN (08:54)
[2018-02-09] MEDS ORDERED: Dextrose 50% Abboject 50 ML SYRINGE IVP PRN (08:54)
[2018-02-09] MEDS: Docusate 100 MG CAP PO SCH ×2 (09:56→19:54)
[2018-02-09] MEDS: Furosemide 40 MG/4 ML VIAL SLOW IVP SCH (09:56)
[2018-02-09] MEDS: Saccharomyces boulardii 250 MG CAP PO SCH (09:56)
[2018-02-09] MEDS: Acetaminophen 325 MG TAB PO PRN (10:11)
--- NOTE | 2018-02-09 10:37 | RAD ---
PORTABLE CHEST: HISTORY: Respiratory failure. CCU followup. COMPARISON: 02/07/2018 FINDINGS: Bibasilar opacities appear unchanged. Cardiomegaly and mild vascular engorgement is unchanged. Smal l effusions cannot be excluded and appear stable. IMPRESSION: No significant interval change. POS: [facility]
[2018-02-09] MEDS: HumaLOG 300 UNITS/3 ML VIAL SC PRN ×3 (13:14→23:31)
--- NOTE | 2018-02-09 16:00 | PRG ---
DATE OF SERVICE: 02/09/2018 SUBJECTIVE: Elvira Rojas did not look good this morning. She has more respiratory distress. She was on BiPAP. OBJECTIVE: VITAL SIGNS: Heart rate is 97, blood pressure is 150/100 at noon, was reported as 211/117 at 1310, but I cannot imagine that is an accurate blood pressure. LUNGS: Remarkable for diffuse wheezes. HEART: Regular rhythm. ABDOMEN: Soft. EXTREMITIES: Without asymmetry. LABORATORY DATA: White count 13.1, hemoglobin 12.4, platelets 153,000. Sodium 139, potassium 3.7, chloride 99, bicarbonate 31, BUN 20, creatinine 1.0. Her nebulizer frequency was increased this morning. She was given IV magnesium. She was examined this afternoon. She says she feels much better. She is still wearing BiPAP. We will continue with current care with frequent nebulizer treatments, IV steroids. She is on Levaquin this admission. I believe she was on Levaquin last admission as well, so we will stop this, especially since she is on Coumadin. INR is up to 3.7. I started on some doxycycline. Critical care time 35 minutes. MTDD
--- NOTE | 2018-02-09 16:28 | CON ---
DATE OF CONSULTATION: 02/09/2018 REASON FOR CONSULTATION: Atrial fibrillation. PRIMARY FUNNEL COATER: Dr. Britton Love. HISTORY OF PRESENT ILLNESS: Ms. Rojas is a 63-year-old woman who previously was seen by Dr. Britton tejada. She recently presented with shortness of breath. She has a history of severe COPD and has been f ollowed by Pulmonary. She denies any chest pain or pressure. She has required BiPAP. There has bee n some consideration of diastolic dysfunction. This has not been diagnosed in the past. She does co mplain of lower extremity edema in addition to PND. PAST MEDICAL HISTORY: Hypertension, COPD, asthma, previous stroke. PAST SURGICAL HISTORY: Hysterectomy, back surgery, colon resection. ALLERGIES: BACTRIM, CLINDAMYCIN, ONDANSETRON, CIPRO, PENICILLIN, CODEINE, FLAGYL. FAMILY HISTORY: Positive for CAD. SOCIAL HISTORY: She quit all tobacco products 10 years ago. Rare alcohol use. HOME MEDICATIONS: Singulair, Klor-Con, fish oil, Protonix, Paxil, pantoprazole, hydrochlorothiazide, and Lasix. REVIEW OF SYSTEMS: Ten-point review of systems reviewed and as above negative. PHYSICAL EXAMINATION: GENERAL: She currently has BiPAP in place. NEUROLOGIC: The patient is alert and oriented times 3 with no focal neurologic deficits. HEENT: Sclerae without icterus. Mouth has moist mucous membranes with normal pallor. NECK: No JVD. Carotid upstroke brisk. No bruits bilaterally. LUNGS: Rhonchi and rales bilaterally. BACK: No scoliosis or kyphosis. CARDIAC: Regular rate and rhythm with normal S1 and S2. No S3 or S4 noted. No significant rubs, murmurs, thrills, or gallops noted throughout the precordium. PMI is not displaced. There is no parasternal heave. ABDOMEN: Soft, nontender, nondistended. No peritoneal signs present. No hepatosplenomegaly. No abnormal striae. EXTREMITIES: 2+ femoral and 2+ dorsalis pedis pulses. No cyanosis, clubbing, or edema. SKIN: No gross abnormalities. EKG: Normal sinus rhythm with PACs. PERTINENT LABORATORY DATA: Hemoglobin 12.4, creatinine 1.0. IMPRESSION: 1. Shortness of breath. 2. Chronic obstructive pulmonary disease. 3.? diastolic dysfunction. 4. Atrial fibrillation. RECOMMENDATIONS: EKG suggests sinus rhythm with PACs in addition to sinus tachycardia with PACs. Th ere is no evidence of atrial fibrillation. At this point, would not proceed with full dose anticoagu lation therapy. Would treat her underlying chronic obstructive pulmonary disease exacerbation. I wo uld recommend echo with Doppler to assess for diastolic dysfunction. Her BNP was not suggestive of a cute diastolic or systolic heart failure with BNP of 49. She is currently on IV Lasix and we will co ntinue.
[2018-02-09] MEDS: Doxycycline 100 MG CAP PO SCH (19:55)
[2018-02-09] MEDS: Montelukast Sodium 10 mg Tablet PO SCH (19:55)
--- NOTE | 2018-02-09 23:53 | EKG ---
Test Reason : Blood Pressure : / mmHG Vent. Rate : 108 BPM Atrial Rate : 108 BPM P-R Int : 128 ms QRS Dur : 092 ms QT Int : 360 ms P-R-T Axes : 011 021 023 degrees QTc Int : 482 ms Sinus tachycardia with occasional Premature ventricular complexes Otherwise normal ECG When compared with ECG of 07-FEB-2018 21:57, (Unconfirmed) Premature ventricular complexes are now Present Premature atrial complexes are no longer Present Criteria for Inferior infarct are no longer Present Confirmed by Gilbert DEL VALLE ([id number]) on 02/09/2018 11:53:08 PM Referred By: SUNSHINE Confirmed By:Gilbert DEL VALLE
[2018-02-10] MEDS: ALPRAZolam 0.25 MG TAB PO PRN ×2 (03:22→09:27)
[2018-02-10 04:18] LABS: #Lymphocytes 0.4 thou/uL (1.20-3.40); #Monocytes 0.5 thou/uL (0.11-0.59); #Neutrophils 10.7 thou/uL (1.40-6.50); %Eosinophils 0.1 % (0.0-10.0); %Lymphocytes 3.2 % (21.0-51.0); %Monocytes 3.9 % (0.0-10.0); %Neutrophils 92.8 % (42.0-75.0); Hemoglobin 11.8 g/dL (12.0-16.0); Mean Corpuscular HGB CONC 31.9 g/dL (32.0-36.0); Mean Corpuscular Hemoglobin 28.8 pg (27.0-31.0); Mean Corpuscular Volume 90.4 fl (81.0-99.0); Mean Platelet Volume 7.2 fL (7.4-10.4); Platelet Count 140 thou/uL (130-400); RBC Distribution Width 14.7 % (11.5-14.5); Red Blood Cell (RBC) Count 4.08 mill/uL (4.20-5.40); White Blood Cell (WBC) Count 11.5 thou/uL (4.8-10.8)
[2018-02-10 04:32] LABS: INR-International Normal Ratio 3.1; Prothrombin Time 33.3 SEC (12.0-14.7)
[2018-02-10 04:40] LABS: Anion Gap 11 mmol/L (10-20); BUN (Urea Nitrogen) 22 mg/dL (9.8-20.1); Calc. Creatinine Clearance 149 mL/min (70-130); Calcium 8.7 mg/dL (7.8-10.44); Carbon Dioxide 32 mmol/L (23-31); Chloride 98 mmol/L (98-107); Estimated GFR-MDRD 64; Glucose 200 mg/dL (80-115); Potassium 3.2 mmol/L (3.5-5.1); Sodium 138 mmol/L (136-145)
[2018-02-10] MEDS: Arformoterol 15 MCG/2 ML NEB NEB SCH ×2 (06:42→18:25)
[2018-02-10] MEDS ORDERED: Potassium Chloride 40 MEQ in Sodium Chloride 0.9% 250 ML 250 ML IVPB SCH (07:30)
[2018-02-10] MEDS: HumaLOG 300 UNITS/3 ML VIAL SC PRN ×3 (09:01→21:30)
[2018-02-10] MEDS: Docusate 100 MG CAP PO SCH ×2 (09:03→21:24)
[2018-02-10] MEDS: Furosemide 40 MG/4 ML VIAL SLOW IVP SCH (09:03)
[2018-02-10] MEDS: Doxycycline 100 MG CAP PO SCH ×2 (09:03→21:25)
[2018-02-10] MEDS: Saccharomyces boulardii 250 MG CAP PO SCH (09:03)
--- NOTE | 2018-02-10 15:45 | RAD ---
TWO VIEWS ABDOMEN: History: Abdominal distention. Comparison: 02-03-18 FINDINGS: Supine and left lateral decubitus views of the abdomen are submitted for interpretation. There are mu ltiple distended loops of air filled colon. No obvious differential air fluid levels on the left late ral decubitus view. No obvious pneumoperitoneum. If there is concern for bowel perforation, consider CT. IMPRESSION: Limited evaluation due to portable technique and body habitus. Persistent dilatation of multiple loop s of colon. POS: [facility]
--- NOTE | 2018-02-10 16:02 | PDOC.PN ---
- Subjective Encounter Start Date: 02/10/18 Encounter Start Time: 13:30 Still has some discomfort in the RUQ of the abdomen with coughing. Overall, breathing is somewhat better today, but still waxes and wanes. - Objective Resuscitation Status: Resuscitation Status FULL:Full Resuscitation Vital Signs & Weight: Vital Signs (12 hours) Temp Pulse Resp Pulse Ox 02/10/18 15:10 111 H 02/10/18 13:08 104 H 27 H 96 02/10/18 10:35 120 H 02/10/18 09:54 123 H 30 H 93 L 02/10/18 09:08 110 H 32 H 90 L 02/10/18 08:00 98.3 F 115 H 22 H 94 L 02/10/18 07:00 98.3 F 02/10/18 06:43 103 H 02/10/18 04:42 103 H Weight Weight 306 lb 3.553 oz Most Recent Monitor Data Heart Rate from ECG 121 NIBP 144/88 NIBP BP-Mean 112 Respiration from ECG 25 SpO2 88 I&O: 02/09/18 02/10/18 02/11/18 06:59 06:59 06:59 Intake Total 910 1300 240 Output Total 2075 2630 225 Balance -1165 -1330 15 Result Diagrams: 02/10/18 03:32 02/10/18 03:32 Additional Labs: Accuchecks 02/10/18 02/09/18 02/09/18 08:39 23:30 16:50 POC Glucose 211 H 219 H 234 H Phys Exam - Physical Examination Morbidly obese. On Bipap. HEENT: PERRLA Respiratory: no wheezing Dimished breath sounds. Improved from yesterday. Cardiovascular: RRR, no significant murmur Fullness RUQ. Scars over midline. Severe peripheral pitting edema of LE's. Psychiatric: normal affect Deviation from normal: Erythema of calves. Dx/Plan (1) Acute and chronic respiratory failure Code(s): J96.20 - ACUTE AND CHR RESP FAILURE, UNSP W HYPOXIA OR HYPERCAPNIA Status: Acute Qualifiers: Respiratory failure complication: hypoxia and hypercapnia Qualified Code(s) : J96.21 - Acute and chronic respiratory failure with hypoxia; J96.22 - Acute and chronic respiratory failure with hypercapnia; J96.22 - Acute and chronic respiratory failure with hypercapnia; J96.22 - Acute and chronic respiratory failure with hypercapnia Plan: Continue CCU care with Bipap. Followed by Pulmonary/CC. Continue nebs, steroids and antibiotics. (2) COPD with exacerbation Code(s): J44.1 - CHRONIC OBSTRUCTIVE PULMONARY DISEASE W (ACUTE) EXACERBATION Status: Acute (3) Peripheral edema Code(s): R60.9 - EDEMA, UNSPECIFIED Status: Acute Plan: Hx of DVT's with likely venous insufficiency. She has heart cath ordered to investigate for possible CHF, pulmonary HTN. Has negative fluid balance daily. (4) Anxiety and depression Code(s): F41.9 - ANXIETY DISORDER, UNSPECIFIED; F32.9 - MAJOR DEPRESSIVE DISORDER, SINGLE EPISODE, UNSPECIFIED Status: Chronic (5) Chronic anticoagulation Code(s): Z79.01 - INSURANCE VERIFICATION REPRESENTATIVE (CURRENT) USE OF ANTICOAGULANTS Status: Chronic Plan: INR is trending down slowly. Continue to monitor. (6) GERD (gastroesophageal reflux disease) Code(s): K21.9 - GASTRO-ESOPHAGEAL REFLUX DISEASE WITHOUT ESOPHAGITIS Status: Chronic Qualifiers: Esophagitis presence: without esophagitis Qualified Code(s): K21.9 - Gastro -esophageal reflux disease without esophagitis (7) H/O deep venous thrombosis Code(s): Z86.718 - PERSONAL HISTORY OF OTHER VENOUS THROMBOSIS AND EMBOLISM Status: Chronic (8) Hypertension Code(s): I10 - ESSENTIAL (PRIMARY) HYPERTENSION Status: Chronic Qualifiers: Hypertension type: essential hypertension Qualified Code(s): I10 - Essential (primary) hypertension (9) Morbid obesity with BMI of 45.0-49.9, adult Code(s): E66.01 - MORBID (SEVERE) OBESITY DUE TO EXCESS CALORIES; Z68.42 - BODY MASS INDEX (BMI) 45.0-49.9, ADULT Status: Chronic (10) NICK (obstructive sleep apnea) Code(s): G47.33 - OBSTRUCTIVE SLEEP APNEA (ADULT) (PEDIATRIC) Status: Chronic Comment: on cpap (11) Afib Code(s): I48.91 - UNSPECIFIED ATRIAL FIBRILLATION Status: Ruled-out - Plan * Above.
--- NOTE | 2018-02-10 16:09 | PRG ---
DATE OF SERVICE: 02/10/2018 SUBJECTIVE: Elvira Rojas continues to have respiratory distress. OBJECTIVE: VITAL SIGNS: Heart rates 111, respirations 27, oximetry is 96. She is on and off BiPAP. LUNGS: Clear. HEART: Regular rhythm. ABDOMEN: Soft. Her abdomen is more distended. I had asked Dr. Pa who knows her well to evaluate her today. He feels she might have an ileus. NG tube has been ordered. LABORATORY DATA: Sodium 138, potassium 3.2, chloride 98, bicarbonate 32, BUN 22 , creatinine 0.89. White count 11.5, hemoglobin 11.8, platelets 140. Intake and output is negative 1330. IMPRESSION: 1. Chronic obstructive pulmonary disease exacerbation, very slow to resolve. 2. Ileus. 3. Obesity that is life threatening. 3. History of distant tracheostomy in the past and PEG tube with a respiratory illness. At this point in time, clinically, she does not have signs of fatigue, but she is still having difficulty with breathing. We will continue with current respiratory care with frequent nebulizer treatments, BiPAP, steroids, NG suction. Critical care time 35 minutes. MTDD
--- NOTE | 2018-02-10 16:43 | CON ---
DATE OF CONSULTATION: 02/10/2018 Ms. Rojas is complaining of upper abdominal pain. HISTORY OF PRESENT ILLNESS: This is a 63-year-old female with history of COPD, status post incisiona l hernia repair by me in early 2017, who now presents with a 2-day history of more abdominal distenti on and pain. She has become more tachypneic during the day today. Dr. Caro has her on some BiPAP. She is complaining of upper abdominal distention and tenderness. She denies any vomiting. She stat es that she is passing gas, but has not had a bowel movement for few days. PAST MEDICAL HISTORY: Includes COPD, steroid dependent asthma, obstructive sleep apnea, morbid obesi ty, hypertension, GERD, polycystic kidney, previous DVT, history of incisional hernia. PAST SURGICAL HISTORY: Partial colon resection, repair of incarcerated incisional hernia. MEDICINES: Include daily see list. ALLERGIES: PENICILLIN, ZOFRAN, CIPRO, CLINDAMYCIN, FLAGYL, SULFA. SOCIAL HISTORY: No smoking or alcohol. REVIEW OF SYSTEMS: Otherwise, negative. PHYSICAL EXAMINATION: VITAL SIGNS: Blood pressure is 144/88, pulse is 104, respirations 27, 96% on BiPAP. CHEST: Coarse. HEART: Increased rate and regular rhythm. ABDOMEN: Distended, tender especially in the upper abdomen. Her midline wound is healed. No eviden ce of recurrent hernia. ASSESSMENT AND PLAN: Abdominal distention causing pain and currently with BiPAP in place, and any ga seous distention to her abdomen is probably being made worse by the BiPAP. She needs BiPAP is in ord er to prevent intubation. I would recommend placement of an NG tube to decompress her. Hopefully, d ecompress her stomach and put less pressure up on her diaphragm, may be that would improve her breath ing. We will get some plain films of the abdomen portable here in the ICU. I do not think she has a ny infectious issues in her abdomen. We will hold off on CT unless she clinically deteriorates [facility].
--- NOTE | 2018-02-10 17:26 | PDOC.CTH ---
Cardiology Progress Note - Subjective This am pt appears comfortable. No complaints. She is opff bipap. - Objective Vital Signs Temp Pulse Resp Pulse Ox 02/10/18 16:39 101 H 16 92 L 02/10/18 16:00 98.0 F 02/10/18 15:10 111 H 02/10/18 13:08 104 H 27 H 96 02/10/18 12:00 98.4 F 02/10/18 10:35 120 H 02/10/18 09:54 123 H 30 H 93 L 02/10/18 09:08 110 H 32 H 90 L 02/10/18 08:00 98.3 F 115 H 22 H 94 L 02/10/18 07:00 98.3 F 02/10/18 06:43 103 H Weight 306 lb 3.553 oz 02/09/18 02/10/18 02/11/18 06:59 06:59 06:59 Intake Total 910 1300 330 Output Total 2075 2630 825 Balance -8685 -3300 -495 - Physical Examination General/Neuro: alert & oriented x3, NAD Neck: carotid US brisk, no JVD present Lungs: other: (rhonchi, rales bilaterally) Heart: RRR Abdomen: no HSM, NT/ND Extremities: + femoral B - Labs Result Diagrams: 02/10/18 03:32 02/10/18 03:32 Troponin/CKMB CK-MB (CK-2) 1.1 ng/mL (0-6.6) 02/07/18 22:02 Troponin I Less than 0.010 ng/mL (< 0.028) 02/08/18 04:53 - Assessment/Plan Dysrythmia 2. SOB 3. COPD Pt with no evidence of afib. Pt with ST with PAC's noted. EF on echo WNL. Mildly enlarged RV. Symptoms mainly pulmonary in origin. Continue current support.
[2018-02-10] MEDS: Montelukast Sodium 10 mg Tablet PO SCH (21:24)
[2018-02-11 04:20] LABS: #Lymphocytes 0.5 thou/uL (1.20-3.40); #Monocytes 0.5 thou/uL (0.11-0.59); #Neutrophils 9.5 thou/uL (1.40-6.50); %Eosinophils 0.2 % (0.0-10.0); %Monocytes 4.3 % (0.0-10.0); %Neutrophils 90.5 % (42.0-75.0); Hemoglobin 11.3 g/dL (12.0-16.0); Mean Corpuscular HGB CONC 32.2 g/dL (32.0-36.0); Mean Corpuscular Hemoglobin 29.1 pg (27.0-31.0); Mean Corpuscular Volume 90.2 fl (81.0-99.0); Mean Platelet Volume 7.3 fL (7.4-10.4); Platelet Count 130 thou/uL (130-400); RBC Distribution Width 14.8 % (11.5-14.5); Red Blood Cell (RBC) Count 3.87 mill/uL (4.20-5.40); White Blood Cell (WBC) Count 10.4 thou/uL (4.8-10.8)
[2018-02-11 04:25] LABS: INR-International Normal Ratio 2.8
[2018-02-11 04:33] LABS: Anion Gap 13 mmol/L (10-20); BUN (Urea Nitrogen) 28 mg/dL (9.8-20.1); Calc. Creatinine Clearance 139 mL/min (70-130); Calcium 8.8 mg/dL (7.8-10.44); Carbon Dioxide 32 mmol/L (23-31); Chloride 98 mmol/L (98-107); Estimated GFR-MDRD 61; Glucose 248 mg/dL (80-115); Potassium 3.7 mmol/L (3.5-5.1); Sodium 139 mmol/L (136-145)
[2018-02-11] MEDS: HumaLOG 300 UNITS/3 ML VIAL SC PRN ×3 (05:57→18:34)
--- NOTE | 2018-02-11 09:05 | RAD ---
PORTABLE CHEST: Date: 02/11/18 HISTORY: Dyspnea. CCU follow-up. COMPARISON: 02/09/18. FINDINGS/IMPRESSION: Bibasilar atelectasis/infiltrates. Cardiomegaly and mild vascular congestion. A NG tube has been plac ed. The tip is not visualized. No significant interval change in the lung beach when compared to yes terday. POS: [facility]
[2018-02-11] MEDS ORDERED: Furosemide 100 MG/10 ML VIAL SLOW IVP SCH ×2 (09:23→15:00)
--- NOTE | 2018-02-11 09:28 | PRG ---
DATE OF SERVICE: 02/11/2018 SUBJECTIVE: Ms. Rojas is still on the BiPAP. She states that she does feel better. Her abdominal d istention is improved. Her pain is improved. PHYSICAL EXAMINATION: VITAL SIGNS: Her pulse is 105, her blood pressure is 130/82. She is afebrile. NG tube is not putti ng out much. ABDOMEN: Her abdominal distention is slightly improved. She is diffusely mildly tender persistently . LABORATORY DATA: White blood cell count is 10, hemoglobin 11, platelet count is 130, creatinine 0.93 . ASSESSMENT: Likely ileus which was seen on her plain films yesterday. PLAN: Continue supportive care with NG tube. If she clinically deteriorates, we will do a CT scan, but I would hesitate to fill her with p.o. contrast at this point given her distention and difficulty breathing. We will follow with you.
[2018-02-11] MEDS ORDERED: Potassium Chloride 20 MEQ TAB PO SCH (09:30)
[2018-02-11] MEDS: Doxycycline 100 MG CAP PO SCH ×2 (09:37→20:41)
[2018-02-11] MEDS: Docusate 100 MG CAP PO SCH ×2 (09:37→20:38)
[2018-02-11] MEDS: Pantoprazole 40 MG GRANULES PACKET PO SCH (09:37)
[2018-02-11] MEDS: Saccharomyces boulardii 250 MG CAP PO SCH (09:37)
[2018-02-11] MEDS: Arformoterol 15 MCG/2 ML NEB NEB SCH (10:09)
--- NOTE | 2018-02-11 10:25 | PRG ---
DATE OF SERVICE: 02/11/2018 Elvira Rojas said she is feeling better. She is still wearing BiPAP most of the time. PHYSICAL EXAMINATION: VITAL SIGNS: Blood pressure 135/76, heart rate 106, respiratory rate 19. She is in sinus rhythm. I ntake and output is negative 1060. LUNGS: Remarkable for diffuse wheezes, but her exhale time is shorter. CARDIOVASCULAR: Regular rhythm. ABDOMEN: Soft. EXTREMITIES: She has some edema that has blistering in the right lower extremity. We will get more aggressive with diuretics today. LABORATORY: White count is 10.4, hemoglobin 11.3, platelets 130,000. Sodium 139, potassium 3.7, chloride 98, bicarbonate 32, BUN 20, creatinine 0.93. IMPRESSION: 1. Respiratory failure, acute on chronic, chronic hypoxemia on home O2 2. Chronic obstructive pulmonary disease exacerbation. 3. Atelectasis at her lung bases, most likely secondary to mucous plugging. 4. Probable acute bronchitis, concerned her sister became ill at the same time. This most likely is viral mediated. Her sister is in the hospital at [facility]. PLAN: Continue current care with nebulizer treatments, steroids on and off BiPAP as tolerated, diure sis, she will remain in the Critical Care Unit. Critical care time was 30 minutes.
--- NOTE | 2018-02-11 18:22 | PDOC.CTH ---
Cardiology Progress Note - Subjective pt back on bipap. NG tube placed - Objective Vital Signs Temp Pulse Resp Pulse Ox 02/11/18 16:52 106 H 18 91 L 02/11/18 15:01 111 H 20 90 L 02/11/18 12:51 105 H 22 H 90 L 02/11/18 12:00 98.3 F 02/11/18 10:54 100 24 H 92 L 02/11/18 10:09 102 H 20 95 02/11/18 08:51 105 H 19 92 L 02/11/18 08:00 97.7 F 107 H 20 93 L 02/11/18 06:30 101 H Weight 304 lb 7.334 oz 02/10/18 02/11/18 02/12/18 06:59 06:59 06:59 Intake Total 1300 520 220 Output Total 2630 1580 3520 Balance -1330 -1060 -3300 - Physical Examination General/Neuro: alert & oriented x3, NAD Neck: no JVD present Lungs: other: (rhonchi,r ales noted) Heart: PMI normal, RRR Abdomen: no HSM, NT/ND Extremities: + femoral B - Labs Result Diagrams: 02/11/18 04:08 02/11/18 04:08 Troponin/CKMB CK-MB (CK-2) 1.1 ng/mL (0-6.6) 02/07/18 22:02 Troponin I Less than 0.010 ng/mL (< 0.028) 02/08/18 04:53 - Assessment/Plan Dysrythmia 2. SOB 3. COPD Pt main issue conitrnue to be her lung issues. Cardiac hoffman, EF is normal. Tachycardia related to O2 demand. BNP also WNL. At this point, I will sign off. Pt rythm not consistent with afib but ST with PAC's. Please reconult if neede.d
[2018-02-11] MEDS: Montelukast Sodium 10 mg Tablet PO SCH (20:37)
--- NOTE | 2018-02-11 22:26 | PDOC.PN ---
- Subjective Encounter Start Date: 02/11/18 Encounter Start Time: 17:00 Doing much better. Had NGT placed and abdomen feels better. Breathing more comfortably. - Objective Resuscitation Status: Resuscitation Status FULL:Full Resuscitation Vital Signs & Weight: Vital Signs (12 hours) Temp Pulse Resp Pulse Ox 02/11/18 21:09 107 H 24 H 95 02/11/18 18:41 103 H 19 91 L 02/11/18 17:00 98.4 F 02/11/18 16:52 106 H 18 91 L 02/11/18 15:01 111 H 20 90 L 02/11/18 12:51 105 H 22 H 90 L 02/11/18 12:00 98.3 F 02/11/18 10:54 100 24 H 92 L Weight Weight 304 lb 7.334 oz Most Recent Monitor Data Heart Rate from ECG 107 NIBP 132/89 NIBP BP-Mean 104 Respiration from ECG 17 SpO2 91 I&O: 02/10/18 02/11/18 02/12/18 06:59 06:59 06:59 Intake Total 1300 520 280 Output Total 2630 1580 4495 Balance -1330 -1060 -4215 Result Diagrams: 02/11/18 04:08 02/11/18 04:08 Additional Labs: Accuchecks 02/11/18 02/11/18 17:43 12:19 POC Glucose 217 H 249 H Phys Exam - Physical Examination Constitutional: NAD NG, off Bipap HEENT: PERRLA, oral pharynx no lesions Neck: no JVD Dimished breath sounds, but fair air exchange Cardiovascular: RRR, no significant murmur Gastrointestinal: soft, non-tender Less distended LE Edema with some blistering Neurological: non-focal Deviation from normal: Statis dermatitis LE's Dx/Plan (1) Acute and chronic respiratory failure Code(s): J96.20 - ACUTE AND CHR RESP FAILURE, UNSP W HYPOXIA OR HYPERCAPNIA Status: Acute Qualifiers: Respiratory failure complication: hypoxia and hypercapnia Qualified Code(s) : J96.21 - Acute and chronic respiratory failure with hypoxia; J96.22 - Acute and chronic respiratory failure with hypercapnia; J96.22 - Acute and chronic respiratory failure with hypercapnia; J96.22 - Acute and chronic respiratory failure with hypercapnia (2) COPD with exacerbation Code(s): J44.1 - CHRONIC OBSTRUCTIVE PULMONARY DISEASE W (ACUTE) EXACERBATION Status: Acute (3) Peripheral edema Code(s): R60.9 - EDEMA, UNSPECIFIED Status: Acute (4) Anxiety and depression Code(s): F41.9 - ANXIETY DISORDER, UNSPECIFIED; F32.9 - MAJOR DEPRESSIVE DISORDER, SINGLE EPISODE, UNSPECIFIED Status: Chronic (5) Chronic anticoagulation Code(s): Z79.01 - STILL PUMP OPERATOR (CURRENT) USE OF ANTICOAGULANTS Status: Chronic (6) GERD (gastroesophageal reflux disease) Code(s): K21.9 - GASTRO-ESOPHAGEAL REFLUX DISEASE WITHOUT ESOPHAGITIS Status: Chronic Qualifiers: Esophagitis presence: without esophagitis Qualified Code(s): K21.9 - Gastro -esophageal reflux disease without esophagitis (7) H/O deep venous thrombosis Code(s): Z86.718 - PERSONAL HISTORY OF OTHER VENOUS THROMBOSIS AND EMBOLISM Status: Chronic (8) Hypertension Code(s): I10 - ESSENTIAL (PRIMARY) HYPERTENSION Status: Chronic Qualifiers: Hypertension type: essential hypertension Qualified Code(s): I10 - Essential (primary) hypertension (9) Morbid obesity with BMI of 45.0-49.9, adult Code(s): E66.01 - MORBID (SEVERE) OBESITY DUE TO EXCESS CALORIES; Z68.42 - BODY MASS INDEX (BMI) 45.0-49.9, ADULT Status: Chronic (10) NICK (obstructive sleep apnea) Code(s): G47.33 - OBSTRUCTIVE SLEEP APNEA (ADULT) (PEDIATRIC) Status: Chronic Comment: on cpap (11) Afib Code(s): I48.91 - UNSPECIFIED ATRIAL FIBRILLATION Status: Ruled-out - Plan * Improved with the decompression of the ileus. * Pulmonology following. Continue with steroids, nebs. * Diuresing well. * Continue aggressively managing the blood sugars.
[2018-02-12] MEDS: HumaLOG 300 UNITS/3 ML VIAL SC PRN ×3 (01:19→15:01)
[2018-02-12 04:58] LABS: INR-International Normal Ratio 2.3; Prothrombin Time 26.4 SEC (12.0-14.7)
--- NOTE | 2018-02-12 08:30 | RAD ---
1 VIEW CHEST: Date: 02/12/18 COMPARISON: 02/11/18. HISTORY: Respiratory distress. FINDINGS: Stable nasogastric tube. Persistent opacification in the lung bases. Stable enlarged cardiac silhouet te and atherosclerosis of aorta. IMPRESSION: No significant change. POS: [facility]
--- NOTE | 2018-02-12 08:38 | PDOC.PN ---
- Subjective Encounter Start Date: 02/12/18 Encounter Start Time: 08:36 Doing well this morning. Feels a little better. Complains of some throat soreness with NGT. - Objective Resuscitation Status: Resuscitation Status FULL:Full Resuscitation Vital Signs & Weight: Vital Signs (12 hours) Temp Pulse Resp Pulse Ox 02/12/18 06:47 90 L 02/12/18 06:31 101 H 92 L 02/12/18 06:28 101 H 17 92 L 02/12/18 04:54 98 16 92 L 02/12/18 04:00 98.8 F 02/12/18 02:48 107 H 20 02/12/18 01:15 104 H 02/12/18 01:13 101 H 17 91 L 02/12/18 00:00 98.7 F 02/11/18 22:56 103 H 20 94 L 02/11/18 21:09 107 H 24 H 95 Weight Weight 302 lb 14.642 oz Most Recent Monitor Data Heart Rate from ECG 95 NIBP 141/83 NIBP BP-Mean 107 Respiration from ECG 18 SpO2 93 I&O: 02/11/18 02/12/18 02/13/18 06:59 06:59 06:59 Intake Total 520 640 Output Total 1580 6090 Balance -1060 -4492 Result Diagrams: 02/11/18 04:08 02/11/18 04:08 Additional Labs: Accuchecks 02/12/18 02/12/18 02/11/18 04:38 01:20 17:43 POC Glucose 207 H 241 H 217 H 02/11/18 12:19 POC Glucose 249 H Phys Exam - Physical Examination Constitutional: NAD HEENT: PERRLA, moist MMs White patches/plaques over tongue Neck: no nodes, no JVD Respiratory: no wheezing, no rales, clear to auscultation bilateral Diminished. Exam compromised by habitus Cardiovascular: RRR, no significant murmur Gastrointestinal: soft, non-tender, no distention, positive bowel sounds Distention improved. Peripheral edema is improved. 1+ Neurological: non-focal Deviation from normal: Erythema of both calves. Chronic Dx/Plan (1) Acute and chronic respiratory failure Code(s): J96.20 - ACUTE AND CHR RESP FAILURE, UNSP W HYPOXIA OR HYPERCAPNIA Status: Acute Qualifiers: Respiratory failure complication: hypoxia and hypercapnia Qualified Code(s) : J96.21 - Acute and chronic respiratory failure with hypoxia; J96.22 - Acute and chronic respiratory failure with hypercapnia; J96.22 - Acute and chronic respiratory failure with hypercapnia; J96.22 - Acute and chronic respiratory failure with hypercapnia Plan: Improving. Decompression of ileus, diruresis, steroids, nebs have been helpful. Continue same. Pulmonology following. (2) COPD with exacerbation Code(s): J44.1 - CHRONIC OBSTRUCTIVE PULMONARY DISEASE W (ACUTE) EXACERBATION Status: Acute (3) Peripheral edema Code(s): R60.9 - EDEMA, UNSPECIFIED Status: Acute Plan: Significantly improved with agressive diuresis. Hx of thrombosis and likely has some venous insufficiency. No evidence decompensated heart failure. PT consult. (4) Anxiety and depression Code(s): F41.9 - ANXIETY DISORDER, UNSPECIFIED; F32.9 - MAJOR DEPRESSIVE DISORDER, SINGLE EPISODE, UNSPECIFIED Status: Chronic Plan: Xanax as needed. Has been helpful. (5) Chronic anticoagulation Code(s): Z79.01 - BRADDISHER (CURRENT) USE OF ANTICOAGULANTS Status: Chronic Plan: For hx of thrombosis. Was hypercoagulable, but better now. Resume Coumadin. (6) GERD (gastroesophageal reflux disease) Code(s): K21.9 - GASTRO-ESOPHAGEAL REFLUX DISEASE WITHOUT ESOPHAGITIS Status: Chronic Qualifiers: Esophagitis presence: without esophagitis Qualified Code(s): K21.9 - Gastro -esophageal reflux disease without esophagitis (7) H/O deep venous thrombosis Code(s): Z86.718 - PERSONAL HISTORY OF OTHER VENOUS THROMBOSIS AND EMBOLISM Status: Chronic Plan: Resume coumadin. (8) Hypertension Code(s): I10 - ESSENTIAL (PRIMARY) HYPERTENSION Status: Chronic Qualifiers: Hypertension type: essential hypertension Qualified Code(s): I10 - Essential (primary) hypertension (9) Morbid obesity with BMI of 45.0-49.9, adult Code(s): E66.01 - MORBID (SEVERE) OBESITY DUE TO EXCESS CALORIES; Z68.42 - BODY MASS INDEX (BMI) 45.0-49.9, ADULT Status: Chronic (10) NICK (obstructive sleep apnea) Code(s): G47.33 - OBSTRUCTIVE SLEEP APNEA (ADULT) (PEDIATRIC) Status: Chronic Comment: on cpap (11) Thrush Code(s): B37.0 - CANDIDAL STOMATITIS Status: Acute Plan: Nystatin swish and swallow. - Plan * As above. * PT to help mobilze patient. * Surgery following. May be able to remove NGT pending x-ray results. * Hyperglycemia is actually better than expected given the dose of steroids. Continue aggressive SSI. Patient does not have a hx of DM.
[2018-02-12] MEDS: Docusate 100 MG CAP PO SCH ×2 (09:43→20:26)
[2018-02-12] MEDS: Doxycycline 100 MG CAP PO SCH ×2 (09:43→20:26)
[2018-02-12] MEDS: Saccharomyces boulardii 250 MG CAP PO SCH (09:43)
[2018-02-12] MEDS: Pantoprazole 40 MG GRANULES PACKET PO SCH (09:43)
[2018-02-12] MEDS: Nystatin 500,000 UNITS/5 ML UDCUP SSW SCH ×4 (09:43→20:27)
[2018-02-12] MEDS: Warfarin Sodium 3 MG TAB PO SCH ×2 (10:35→15:59)
[2018-02-12] MEDS: ALPRAZolam 0.25 MG TAB PO PRN (13:26)
[2018-02-12] MEDS ORDERED: Potassium Chloride 20 MEQ TAB PO SCH (15:30)
[2018-02-12] MEDS ORDERED: Furosemide 40 MG/4 ML VIAL SLOW IVP SCH (15:30)
[2018-02-12] MEDS: Montelukast Sodium 10 mg Tablet PO SCH (20:27)
--- NOTE | 2018-02-12 20:50 | PRG ---
DATE OF SERVICE: 02/12/2018 SUBJECTIVE: Ms. Elvira Rojas is off BiPAP this morning. She says she feels much better. OBJECTIVE: VITAL SIGNS: Heart rate is 120, respiratory rate is 19, oximetry is 90 on 2 liters, blood pressure 1 41/82. LABORATORY DATA: No lab today. IMPRESSION: 1. Respiratory failure secondary to chronic obstructive pulmonary disease exacerbation. 2. Obesity. 3. Sleep apnea. PLAN: Continue BiPAP with sleep and p.r.n., should probably tolerate more diuresis.
[2018-02-13] MEDS: ALPRAZolam 0.25 MG TAB PO PRN ×3 (00:45→22:54)
[2018-02-13] MEDS: Acetaminophen 325 MG TAB PO PRN (00:47)
[2018-02-13] MEDS: HumaLOG 300 UNITS/3 ML VIAL SC PRN ×4 (05:13→21:36)
[2018-02-13 05:41] LABS: BUN (Urea Nitrogen) 30 mg/dL (9.8-20.1); Calc. Creatinine Clearance 149 mL/min (70-130); Calcium 8.7 mg/dL (7.8-10.44); Estimated GFR-MDRD 67; Glucose 233 mg/dL (80-115)
[2018-02-13 05:51] LABS: Anion Gap 15 mmol/L (10-20); Carbon Dioxide 35 mmol/L (23-31); Chloride 94 mmol/L (98-107); Potassium 3.9 mmol/L (3.5-5.1); Sodium 140 mmol/L (136-145)
[2018-02-13 06:00] LABS: Band 1 % (5-11); Hemoglobin 11.2 g/dL (12.0-16.0); Lymphocytes 6 % (21-51); MDiff Complete? YES; Mean Corpuscular HGB CONC 30.8 g/dL (32.0-36.0); Mean Corpuscular Hemoglobin 27.9 pg (27.0-31.0); Mean Corpuscular Volume 90.6 fl (81.0-99.0); Mean Platelet Volume 7.2 fL (7.4-10.4); Monocytes 8 % (0-10); Neutrophil 85 % (42-75); PLT Morphology Comment Appears Adequate; Platelet Count 149 thou/uL (130-400); RBC Distribution Width 14.6 % (11.5-14.5); RBC Morphology Normal; Red Blood Cell (RBC) Count 4.03 mill/uL (4.20-5.40); White Blood Cell (WBC) Count 10.1 thou/uL (4.8-10.8)
--- NOTE | 2018-02-13 07:54 | RAD ---
UPRIGHT PORTABLE CHEST 1 VIEW: Date: 02/13/18 HISTORY: Respiratory insufficiency. COMPARISON: 02/12/18. FINDINGS: NG tube in place. Persistent pleural and parenchymal opacity changes in the left base and costophreni c angle. Stable increased markings bilaterally. Stable right infrahilar parenchymal changes. IMPRESSION: Overall stable pleural and parenchymal changes in the left base, and parenchymal changes in the right infrahilar region with cardiomegaly. Continue short-term follow-up for clearing or stability. POS: [facility]
[2018-02-13] MEDS: Doxycycline 100 MG CAP PO SCH ×2 (09:09→21:26)
[2018-02-13] MEDS: Pantoprazole 40 MG GRANULES PACKET PO SCH (09:10)
[2018-02-13] MEDS: Docusate 100 MG CAP PO SCH ×2 (09:10→21:26)
[2018-02-13] MEDS: Saccharomyces boulardii 250 MG CAP PO SCH (09:10)
[2018-02-13] MEDS: Nystatin 500,000 UNITS/5 ML UDCUP SSW SCH ×4 (09:13→21:26)
--- NOTE | 2018-02-13 12:23 | PRG ---
DATE OF SERVICE: 02/13/2018 SUBJECTIVE: Ms. Rojas is getting better today. She feels much better. She is moving around much quicker in bed. OBJECTIVE: VITAL SIGNS: She is afebrile, heart rate is 92, respiratory rate is 18, oximetry is 93 on 2 liter ca nnula. LUNGS: Still marked decreased wheezes and that her expiratory phase is much shorter. HEART: Regular rhythm. S1 and S2 are normal. ABDOMEN: Soft and nontender. She said nothing out of her NG tube, she is passing gas. We will anthony ve her NG tube. LABORATORY DATA: White count 10.1, hemoglobin 11.2, platelets 149,000. Sodium 140, potassium 3.9, chloride 94, bicarbonate 35, BUN 30, creatinine 0.86, glucose 233. PH of 7.43, CO2 of 48, pO2 of 81 on 02/09. There is no blood gas since then. This one is not indica richard. IMAGING: Chest radiograph is unchanged. IMPRESSION: 1. Chronic obstructive pulmonary disease exacerbation. 2. Bronchitis. 3. Atelectasis. 4. Obesity. 5. Deconditioning. 6. Status post several days of noninvasive ventilatory support with an ileus. Her ileus appears to be resolving. NG tube will be removed. I will keep her in the ICU 1 more day.
[2018-02-13] MEDS: Warfarin Sodium 3 MG TAB PO SCH (16:55)
[2018-02-13] MEDS: Montelukast Sodium 10 mg Tablet PO SCH (21:26)
--- NOTE | 2018-02-13 23:15 | PDOC.PN ---
- Subjective Encounter Start Date: 02/13/18 Encounter Start Time: 09:30 Patient seen and examined for Resp failure. No new complaints. No overnight events - Objective Resuscitation Status: Resuscitation Status FULL:Full Resuscitation MAR Reviewed: Yes Vital Signs & Weight: Vital Signs (12 hours) Temp Pulse Resp Pulse Ox 02/13/18 21:10 107 H 28 H 89 L 02/13/18 20:00 99.8 F H 02/13/18 19:17 99.7 F H 101 H 17 92 L 02/13/18 18:43 101 H 17 91 L 02/13/18 17:00 98.4 F 02/13/18 16:35 95 22 H 92 L 02/13/18 14:34 91 17 94 L 02/13/18 12:14 92 24 H 92 L 02/13/18 12:00 98.5 F Weight Weight 4.593 oz Most Recent Monitor Data Heart Rate from ECG 101 NIBP 154/99 NIBP BP-Mean 114 Respiration from ECG 19 SpO2 90 I&O: 02/12/18 02/13/18 02/14/18 06:59 06:59 06:59 Intake Total 803 527 0361 Output Total 6090 3110 895 Balance -3129 -2404 245 Result Diagrams: 02/14/18 05:13 02/14/18 05:13 Additional Labs: Accuchecks 02/13/18 02/13/18 02/13/18 21:37 14:47 09:29 POC Glucose 267 H 269 H 180 H 02/13/18 04:48 POC Glucose 222 H EKG Reviewed by me: Yes (Tele SR) Phys Exam - Physical Examination Constitutional: NAD NG tube + Respiratory: no wheezing, no rales Scat rhonchi Cardiovascular: RRR, no rub Gastrointestinal: soft, non-tender, positive bowel sounds Neurological: moves all 4 limbs Dx/Plan (1) COPD with exacerbation Code(s): J44.1 - CHRONIC OBSTRUCTIVE PULMONARY DISEASE W (ACUTE) EXACERBATION Status: Acute (2) Ileus Code(s): K56.7 - ILEUS, UNSPECIFIED Status: Acute (3) Acute respiratory failure with hypoxia and hypercapnia Code(s): J96.01 - ACUTE RESPIRATORY FAILURE WITH HYPOXIA; J96.02 - ACUTE RESPIRATORY FAILURE WITH HYPERCAPNIA Status: Acute (4) Tachyarrhythmia Code(s): R00.0 - TACHYCARDIA, UNSPECIFIED Status: Acute Comment: on Cardizem (5) Chronic anticoagulation Code(s): Z79.01 - PRISON (CURRENT) USE OF ANTICOAGULANTS Status: Chronic (6) DM2 (diabetes mellitus, type 2) Status: Chronic Qualifiers: Chronic kidney disease stage: stage 2 (mild) - Plan respiratory therapy Add 15 units Lantus daily -: Cont current meds as below -: PT/INR in AM -: AM labs Review of Systems - Review of Systems Constitutional: negative: fever, chills, sweats, weakness, malaise, other Cardiovascular: negative: chest pain, palpitations, orthopnea, paroxysmal nocturnal dyspnea, edema, light headedness, other Gastrointestinal: negative: Nausea, Vomiting, Abdominal Pain, Diarrhea, Constipation, Melena, Hematochezia, Other - Medications/Allergies Allergies/Adverse Reactions: Allergies Allergy/AdvReac Type Severity Reaction Status Date / Time Penicillins Allergy Severe Rash, and Verified 02/08/18 02:44 swelling ondansetron Allergy Intermediate Nausea Verified 02/08/18 02:44 [From Zofran (as hydrochloride)] cefprozil [Cefprozil] Allergy Nausea Verified 02/08/18 02:44 ciprofloxacin Allergy Nausea Verified 02/08/18 02:44 clindamycin Allergy Nausea Verified 02/08/18 02:44 codeine [Codeine] Allergy Rash Verified 02/08/18 02:44 metronidazole [From Flagyl] Allergy Nausea Verified 02/08/18 02:44 Sulfa (Sulfonamide Allergy Nausea Verified 02/08/18 02:44 Antibiotics) Medications: Current Medications Acetaminophen (Tylenol) 650 mg PO Q4H PRN PRN Reason: Headache/Fever or Pain Last Admin: 02/13/18 00:47 Dose: 650 mg Al Hydroxide/Mg Hydroxide (Maalox) 30 ml PO Q6H PRN PRN Reason: Heartburn or Indigestion Albuterol/Ipratropium (Duoneb) 3 ml NEB Q4H PRN PRN Reason: SOB &/or Wheezing Last Admin: 02/10/18 09:54 Dose: 3 ml Albuterol/Ipratropium (Duoneb) 3 ml NEB Q9EP-[place] Last Admin: 02/13/18 21:10 Dose: 3 ml Alprazolam (Xanax) 0.25 mg PO Q6H PRN PRN Reason: Anxiety Last Admin: 02/13/18 22:54 Dose: 0.25 mg Benzonatate (Tessalon) 100 mg PO TIDPRN PRN PRN Reason: Cough Dextrose/Water (Dextrose 50%) 25 gm IVP PRN PRN PRN Reason: HYPOGLYCEMIA PROTOCOL Diltiazem HCl (Cardizem) 60 mg PO Q8HR [facility] Last Admin: 02/13/18 21:26 Dose: 60 mg Docusate Sodium (Colace) 100 mg PO BID [facility] Last Admin: 02/13/18 21:26 Dose: 100 mg Doxycycline Hyclate (Vibramycin) 100 mg PO BID [facility] Last Admin: 02/13/18 21:26 Dose: 100 mg Glucagon (Glucagon) 1 mg IM PRN PRN PRN Reason: HYPOGLYCEMIA PROTOCOL Hydralazine HCl (Apresoline) 10 mg SLOW IVP Q4H PRN PRN Reason: Systolic BP > 180 Last Admin: 02/09/18 13:10 Dose: 10 mg Dextrose/Water (D5w) 1,000 mls @ 0 mls/hr IV INF PRN; As Directed PRN Reason: HYPOGLYCEMIA PROTOCOL Insulin Human Lispro (Humalog) 0 units SC .AGGRESSIVE SLIDING PRN; Protocol PRN Reason: AGGRESSIVE SLIDING SCALE Last Admin: 02/13/18 21:36 Dose: 9 unit Lactulose (Lactulose) 20 gm PO DAILYPRN PRN PRN Reason: Constipation Magnesium Hydroxide (Milk Of Magnesium) 30 ml PO DAILYPRN PRN PRN Reason: Constipation Methylprednisolone Sodium Succinate (Solu-Medrol) 40 mg IVP Q8HR [facility] Last Admin: 02/13/18 21:26 Dose: 40 mg Metoclopramide HCl (Reglan) 10 mg PO BIDPRN PRN PRN Reason: Nausea Montelukast Sodium (Singulair) 10 mg PO QPM [facility] Last Admin: 02/13/18 21:26 Dose: 10 mg Nystatin (Mycostatin) 500,000 units SSW QID [facility] Last Admin: 02/13/18 21:26 Dose: 500,000 units Pantoprazole Sodium (Protonix) 40 mg PO DAILY [facility] Last Admin: 02/13/18 09:10 Dose: 40 mg Polyethylene Glycol (Miralax) 17 gm PO DAILYPRN PRN PRN Reason: Constipation Saccharomyces Boulardii (Florastor) 250 mg PO DAILY [facility] Last Admin: 02/13/18 09:10 Dose: 250 mg Warfarin Sodium (Coumadin) 3 mg PO 1700 [facility] Last Admin: 02/13/18 16:55 Dose: 3 mg
[2018-02-14] MEDS: HumaLOG 300 UNITS/3 ML VIAL SC PRN ×4 (05:29→22:41)
[2018-02-14 05:34] LABS: INR-International Normal Ratio 2.5; Prothrombin Time 28.1 SEC (12.0-14.7)
[2018-02-14 05:36] LABS: Anion Gap 13 mmol/L (10-20); BUN (Urea Nitrogen) 30 mg/dL (9.8-20.1); Calc. Creatinine Clearance 149 mL/min (70-130); Calcium 8.9 mg/dL (7.8-10.44); Carbon Dioxide 35 mmol/L (23-31); Chloride 93 mmol/L (98-107); Estimated GFR-MDRD 71; Glucose 233 mg/dL (80-115); Magnesium 2.1 mg/dL (1.6-2.6); Potassium 3.9 mmol/L (3.5-5.1); Sodium 137 mmol/L (136-145)
[2018-02-14 06:18] LABS: Hemoglobin 11.5 g/dL (12.0-16.0); Mean Corpuscular HGB CONC 31.7 g/dL (32.0-36.0); Mean Corpuscular Hemoglobin 28.6 pg (27.0-31.0); Mean Corpuscular Volume 90.3 fl (81.0-99.0); Mean Platelet Volume 7.1 fL (7.4-10.4); Platelet Count 154 thou/uL (130-400); RBC Distribution Width 14.3 % (11.5-14.5); Red Blood Cell (RBC) Count 4.02 mill/uL (4.20-5.40); White Blood Cell (WBC) Count 9.9 thou/uL (4.8-10.8)
[2018-02-14] MEDS: ALPRAZolam 0.25 MG TAB PO PRN ×3 (06:32→22:41)
[2018-02-14 07:11] LABS: Lymphocytes 11 % (21-51); MDiff Complete? YES; Monocytes 6 % (0-10); Neutrophil 83 % (42-75); PLT Morphology Comment Appears Adequate; RBC Morphology Normal
[2018-02-14] MEDS: Docusate 100 MG CAP PO SCH ×2 (08:36→21:54)
[2018-02-14] MEDS: Pantoprazole 40 MG GRANULES PACKET PO SCH (08:37)
[2018-02-14] MEDS: Saccharomyces boulardii 250 MG CAP PO SCH (08:37)
[2018-02-14] MEDS: guaiFENesin ER 600 MG TAB PO SCH ×2 (08:37→21:10)
[2018-02-14] MEDS: Doxycycline 100 MG CAP PO SCH ×2 (08:37→21:10)
[2018-02-14] MEDS: Insulin Glargine 15 UNITS in Pre-Filled Syringe 1 EACH SC SCH (08:38)
[2018-02-14] MEDS: Nystatin 500,000 UNITS/5 ML UDCUP SSW SCH ×4 (09:21→21:09)
--- NOTE | 2018-02-14 09:40 | RAD ---
SEMIUPRIGHT PORTABLE CHEST 1 VIEW: Date: 02/14/18 COMPARISON: 02/13/18. FINDINGS: NG tube has been removed. There are persistent pleural and parenchymal opacities in the left chest wi th some elevation of the left hemidiaphragm raising concern for some left lower lobe partial atelecta sis. Stable parenchymal changes in the right base. IMPRESSION: Persistent, possibly slightly progressive, pleural and parenchymal opacity changes in the left base w ith what appears to be some associated volume loss and some elevation of the left hemidiaphragm, rais ing concern for some left lower lobe atelectasis. POS: [facility]
[2018-02-14] MEDS: Warfarin Sodium 3 MG TAB PO SCH ×2 (14:11→17:07)
[2018-02-14] MEDS: Furosemide 40 MG/4 ML VIAL SLOW IVP SCH (14:12)
--- NOTE | 2018-02-14 15:28 | PRG ---
DATE OF SERVICE: 02/14/2018 SUBJECTIVE: Ms. Rojas is finally looking more like her old self. OBJECTIVE: VITAL SIGNS: Heart rate is 87, respiratory rate is 16, oximetry is 91 on 2 liters, blood pressure 12 2/71. LUNGS: Clear today. CARDIOVASCULAR: Regular rhythm. S1 and S2 are normal. ABDOMEN: Soft and nontender. EXTREMITIES: Without clubbing, cyanosis, or edema. LABORATORY DATA: White count 9.9, hemoglobin 11.5, platelets are 154,000. Sodium 137, potassium 3.9, chloride 92, bicarbonate 35, BUN 30, creatinine 0.82. Chest radiograph sh ows atelectasis in her left lower lobe. IMPRESSION: 1. Chronic obstructive pulmonary disease exacerbation. 2. Retained mucus with atelectasis. Try switching her nebulized treatments to EzPAP treatment to se e if these help. 3. Status post ileus, doing well. 4. Obesity with deconditioning. We will repeat a radiograph in the morning. She is stable to move to the Intermediate Care Unit.
[2018-02-14] MEDS: Montelukast Sodium 10 mg Tablet PO SCH (21:10)
--- NOTE | 2018-02-14 22:53 | PDOC.PN ---
- Subjective Encounter Start Date: 02/14/18 Encounter Start Time: 14:00 Patient seen and examined for Resp failure. No new complaints. No overnight events. Cough with minimal production. - Objective Resuscitation Status: Resuscitation Status FULL:Full Resuscitation MAR Reviewed: Yes Vital Signs & Weight: Vital Signs (12 hours) Temp Pulse Pulse Pulse Resp BP BP 02/14/18 22:18 97 20 02/14/18 20:00 98.8 F 90 20 02/14/18 19:43 98.8 F 90 20 02/14/18 18:40 88 20 02/14/18 15:36 99.0 F 100 18 02/14/18 14:25 98 97 144/95 H 148/90 H 02/14/18 14:14 94 18 BP Pulse Ox Pulse Ox Pulse Ox 02/14/18 22:18 92 L 02/14/18 20:00 90 L 02/14/18 19:43 133/88 93 L 02/14/18 18:40 92 L 02/14/18 15:36 142/99 H 92 L 02/14/18 14:25 93 L 93 L 02/14/18 14:14 93 L Weight Weight 288 lb 9.361 oz Most Recent Monitor Data Heart Rate from ECG 91 NIBP 122/71 NIBP BP-Mean 95 Respiration from ECG 17 SpO2 90 I&O: 02/13/18 02/14/18 02/15/18 06:59 06:59 06:59 Intake Total 705 1260 970 Output Total 3110 1230 765 Balance -2405 30 205 Result Diagrams: 02/15/18 07:26 02/15/18 07:26 Additional Labs: Accuchecks 02/14/18 02/14/18 02/14/18 22:25 16:27 10:18 POC Glucose 288 H 250 H 273 H 02/14/18 04:29 POC Glucose 220 H EKG Reviewed by me: Yes (Tele SR) Phys Exam - Physical Examination Constitutional: NAD Respiratory: no rales, wheezing present (scat) Cardiovascular: RRR, no rub Gastrointestinal: soft, non-tender, positive bowel sounds Neurological: moves all 4 limbs Dx/Plan (1) COPD with exacerbation Code(s): J44.1 - CHRONIC OBSTRUCTIVE PULMONARY DISEASE W (ACUTE) EXACERBATION Status: Acute (2) Ileus Code(s): K56.7 - ILEUS, UNSPECIFIED Status: Acute Comment: improving (3) Acute respiratory failure with hypoxia and hypercapnia Code(s): J96.01 - ACUTE RESPIRATORY FAILURE WITH HYPOXIA; J96.02 - ACUTE RESPIRATORY FAILURE WITH HYPERCAPNIA Status: Acute (4) Tachyarrhythmia Code(s): R00.0 - TACHYCARDIA, UNSPECIFIED Status: Acute Comment: on Cardizem (5) Chronic anticoagulation Code(s): Z79.01 - RETIREMENT (CURRENT) USE OF ANTICOAGULANTS Status: Chronic (6) DM2 (diabetes mellitus, type 2) Status: Chronic Qualifiers: Chronic kidney disease stage: stage 2 (mild) - Plan respiratory therapy Cont Lantus 15 units, Cont Cardizem -: Cont current meds as below -: Transferred to IMCU -: Advance diet to full liqd -: ROLF triana in AM Review of Systems - Review of Systems Constitutional: negative: fever, chills, sweats, weakness, malaise, other Cardiovascular: negative: chest pain, palpitations, orthopnea, paroxysmal nocturnal dyspnea, edema, light headedness, other - Medications/Allergies Allergies/Adverse Reactions: Allergies Allergy/AdvReac Type Severity Reaction Status Date / Time Penicillins Allergy Severe Rash, and Verified 02/08/18 02:44 swelling ondansetron Allergy Intermediate Nausea Verified 02/08/18 02:44 [From Zofran (as hydrochloride)] cefprozil [Cefprozil] Allergy Nausea Verified 02/08/18 02:44 ciprofloxacin Allergy Nausea Verified 02/08/18 02:44 clindamycin Allergy Nausea Verified 02/08/18 02:44 codeine [Codeine] Allergy Rash Verified 02/08/18 02:44 metronidazole [From Flagyl] Allergy Nausea Verified 02/08/18 02:44 Sulfa (Sulfonamide Allergy Nausea Verified 02/08/18 02:44 Antibiotics) Medications: Current Medications Acetaminophen (Tylenol) 650 mg PO Q4H PRN PRN Reason: Headache/Fever or Pain Last Admin: 02/13/18 00:47 Dose: 650 mg Al Hydroxide/Mg Hydroxide (Maalox) 30 ml PO Q6H PRN PRN Reason: Heartburn or Indigestion Albuterol/Ipratropium (Duoneb) 3 ml NEB Q4H PRN PRN Reason: SOB &/or Wheezing Last Admin: 02/10/18 09:54 Dose: 3 ml Albuterol/Ipratropium (Duoneb) 3 ml EZPAP [id number] [facility] Last Admin: 02/14/18 22:18 Dose: 3 ml Alprazolam (Xanax) 0.25 mg PO Q6H PRN PRN Reason: Anxiety Last Admin: 02/14/18 22:41 Dose: 0.25 mg Benzonatate (Tessalon) 100 mg PO TIDPRN PRN PRN Reason: Cough Dextrose/Water (Dextrose 50%) 25 gm IVP PRN PRN PRN Reason: HYPOGLYCEMIA PROTOCOL Diltiazem HCl (Cardizem Cd) 180 mg PO DAILY [facility] Docusate Sodium (Colace) 100 mg PO BID [facility] Last Admin: 02/14/18 21:54 Dose: Not Given Doxycycline Hyclate (Vibramycin) 100 mg PO BID [facility] Last Admin: 02/14/18 21:10 Dose: 100 mg Glucagon (Glucagon) 1 mg IM PRN PRN PRN Reason: HYPOGLYCEMIA PROTOCOL Guaifenesin (Mucinex) 600 mg PO Q12HR [facility] Last Admin: 02/14/18 21:10 Dose: 600 mg Hydralazine HCl (Apresoline) 10 mg SLOW IVP Q4H PRN PRN Reason: Systolic BP > 180 Last Admin: 02/09/18 13:10 Dose: 10 mg Dextrose/Water (D5w) 1,000 mls @ 0 mls/hr IV INF PRN; As Directed PRN Reason: HYPOGLYCEMIA PROTOCOL Insulin Glargine 15 units/ (Miscellaneous Medication) 0.15 mls @ 0 mls/hr [facility] Last Admin: 02/14/18 08:38 Dose: 0.15 mls Insulin Human Lispro (Humalog) 0 units SC .AGGRESSIVE SLIDING PRN; Protocol PRN Reason: AGGRESSIVE SLIDING SCALE Last Admin: 02/14/18 22:41 Dose: 9 unit Lactulose (Lactulose) 20 gm PO DAILYPRN PRN PRN Reason: Constipation Magnesium Hydroxide (Milk Of Magnesium) 30 ml PO DAILYPRN PRN PRN Reason: Constipation Methylprednisolone Sodium Succinate (Solu-Medrol) 40 mg IVP 0600,1800 [facility] Last Admin: 02/14/18 17:08 Dose: 40 mg Metoclopramide HCl (Reglan) 10 mg PO BIDPRN PRN PRN Reason: Nausea Montelukast Sodium (Singulair) 10 mg PO QPM [facility] Last Admin: 02/14/18 21:10 Dose: 10 mg Nystatin (Mycostatin) 500,000 units SSW QID [facility] Last Admin: 02/14/18 21:09 Dose: 500,000 units Pantoprazole Sodium (Protonix) 40 mg PO DAILY [facility] Last Admin: 02/14/18 08:37 Dose: 40 mg Polyethylene Glycol (Miralax) 17 gm PO DAILYPRN PRN PRN Reason: Constipation Saccharomyces Boulardii (Florastor) 250 mg PO DAILY [facility] Last Admin: 02/14/18 08:37 Dose: 250 mg Warfarin Sodium (Coumadin) 3 mg PO 1700 [facility] Last Admin: 02/14/18 17:07 Dose: 3 mg
[2018-02-15] MEDS: HumaLOG 300 UNITS/3 ML VIAL SC PRN ×4 (05:43→22:42)
[2018-02-15 07:38] LABS: Mean Corpuscular HGB CONC 32.3 g/dL (32.0-36.0); Mean Corpuscular Hemoglobin 29.3 pg (27.0-31.0); Mean Corpuscular Volume 90.8 fl (81.0-99.0); Mean Platelet Volume 7.5 fL (7.4-10.4); Platelet Count 184 thou/uL (130-400); RBC Distribution Width 14.4 % (11.5-14.5); Red Blood Cell (RBC) Count 4.08 mill/uL (4.20-5.40); White Blood Cell (WBC) Count 12.8 thou/uL (4.8-10.8)
[2018-02-15 07:50] LABS: INR-International Normal Ratio 3.5; Prothrombin Time 36.6 SEC (12.0-14.7)
[2018-02-15 07:52] LABS: Anion Gap 13 mmol/L (10-20); BUN (Urea Nitrogen) 33 mg/dL (9.8-20.1); Calc. Creatinine Clearance 140 mL/min (70-130); Calcium 8.9 mg/dL (7.8-10.44); Carbon Dioxide 35 mmol/L (23-31); Chloride 92 mmol/L (98-107); Estimated GFR-MDRD 65; Glucose 185 mg/dL (80-115); Sodium 136 mmol/L (136-145)
[2018-02-15 08:26] LABS: Band 3 % (5-11); Lymphocytes 9 % (21-51); MDiff Complete? YES; Monocytes 2 % (0-10); Myelocyte 2 % (0-0); Neutrophil 81 % (42-75); Nucleated RBC 2 % (0); PLT Morphology Comment Appears Adequate; RBC Morphology Normal; Reactive Lymphocytes 3 % (0-10)
[2018-02-15] MEDS: Docusate 100 MG CAP PO SCH ×2 (08:37→20:34)
[2018-02-15] MEDS: ALPRAZolam 0.25 MG TAB PO PRN ×3 (08:37→22:17)
[2018-02-15] MEDS: guaiFENesin ER 600 MG TAB PO SCH ×2 (08:37→20:33)
[2018-02-15] MEDS: Doxycycline 100 MG CAP PO SCH ×2 (08:37→20:33)
[2018-02-15] MEDS: Insulin Glargine 15 UNITS in Pre-Filled Syringe 1 EACH SC SCH (08:38)
[2018-02-15] MEDS: Saccharomyces boulardii 250 MG CAP PO SCH (08:38)
[2018-02-15] MEDS: Nystatin 500,000 UNITS/5 ML UDCUP SSW SCH ×4 (08:39→20:34)
--- NOTE | 2018-02-15 09:10 | RAD ---
AP VIEW CHEST: HISTORY: Ventilator-dependent patient. FINDINGS: AP view chest is obtained on 02/15/18. Comparison is made to previous exam from 02/14/18. AP view chest demonstrates EKG leads seen over the chest. A small left-sided pleural effusion is seen. Bilateral airspace opacities are seen in the lung bases, compatible with atelectasis or bibasilar pne umonia. Radiographic appearance of the chest is stable. IMPRESSION: Bibasilar airspace opacities and left-sided pleural effusion. POS: [facility]
--- NOTE | 2018-02-15 11:32 | PRG ---
DATE OF SERVICE: 02/15/2018 Ms. Rojas is doing well. She actually looks great. Her sister is in the room with her who just got out of the hospital with pneumonia. She had cough, syncope and fractured her right foot. PHYSICAL EXAMINATION: VITAL SIGNS: Ms. Rojas is afebrile, heart rate 92, respiratory 20, oximetry is 92% on 2 liters which is close to her baseline. LUNGS: Lungs are remarkable for only faint wheezes now. HEART: Regular rhythm. ABDOMEN: Abdomen is soft. EXTREMITIES: No clubbing, cyanosis, or edema. NEUROLOGIC: Nonfocal. LABORATORY DATA: White count 12.8, hemoglobin 12.0, platelets 184. Sodium 136, potassium 4, chloride 92, bicarbonate 35, BUN 33, creatinine 0.88, glucose 185. INR is u p to 3.5. IMPRESSION: 1. Chronic obstructive pulmonary disease with respiratory failure, acute on chronic, requiring sever al days of noninvasive ventilation 2. Obesity. 3. Deconditioning. 4. Anticoagulation for a past pulmonary embolus. PLAN: Transfer to a medical bed today. Hopefully home in 24-48 hours.
[2018-02-15] MEDS ORDERED: Warfarin Sodium 2 MG TAB PO SCH (17:00)
[2018-02-15] MEDS: Montelukast Sodium 10 mg Tablet PO SCH (20:33)
[2018-02-16 04:44] LABS: INR-International Normal Ratio 4.2
[2018-02-16 04:46] LABS: Anion Gap 10 mmol/L (10-20); BUN (Urea Nitrogen) 35 mg/dL (9.8-20.1); Calc. Creatinine Clearance 145 mL/min (70-130); Calcium 8.6 mg/dL (7.8-10.44); Carbon Dioxide 36 mmol/L (23-31); Chloride 94 mmol/L (98-107); Estimated GFR-MDRD 68; Glucose 222 mg/dL (80-115); Potassium 4.1 mmol/L (3.5-5.1); Sodium 136 mmol/L (136-145)
[2018-02-16 05:13] LABS: Band 3 % (5-11); Hemoglobin 11.8 g/dL (12.0-16.0); Lymphocytes 5 % (21-51); MDiff Complete? YES; Mean Corpuscular HGB CONC 31.7 g/dL (32.0-36.0); Mean Corpuscular Hemoglobin 28.4 pg (27.0-31.0); Mean Corpuscular Volume 89.3 fl (81.0-99.0); Mean Platelet Volume 7.4 fL (7.4-10.4); Metamyelocyte 1 % (0-0); Monocytes 7 % (0-10); Neutrophil 84 % (42-75); PLT Morphology Comment Appears Adequate; Platelet Count 174 thou/uL (130-400); RBC Distribution Width 14.2 % (11.5-14.5); RBC Morphology Normal; Red Blood Cell (RBC) Count 4.17 mill/uL (4.20-5.40); White Blood Cell (WBC) Count 12.5 thou/uL (4.8-10.8)
[2018-02-16] MEDS: HumaLOG 300 UNITS/3 ML VIAL SC PRN ×3 (05:54→20:22)
--- NOTE | 2018-02-16 07:39 | PDOC.PN ---
- Subjective Encounter Start Date: 02/15/18 Encounter Start Time: 13:00 Patient seen and examined on 02/15/18. No new complaints. No overnight events - Objective Resuscitation Status: Resuscitation Status FULL:Full Resuscitation Vital Signs & Weight: Vital Signs (12 hours) Temp Pulse Resp BP Pulse Ox 02/16/18 06:01 76 14 108/66 96 02/16/18 05:52 75 02/16/18 05:51 78 15 96 02/16/18 04:14 97.3 F L 82 19 124/75 92 L 02/16/18 02:54 80 02/16/18 02:04 90 17 108/69 95 02/16/18 00:17 88 02/16/18 00:11 97.6 F 93 16 130/86 96 02/15/18 22:14 97 22 H 134/98 H 92 L 02/15/18 20:30 98.7 F 104 H 22 H 145/83 H 91 L Weight Weight 289 lb 7.471 oz Most Recent Monitor Data Heart Rate from ECG 91 NIBP 122/71 NIBP BP-Mean 95 Respiration from ECG 17 SpO2 90 I&O: 02/15/18 02/16/18 02/17/18 06:59 06:59 06:59 Intake Total 970 2271 Output Total 1915 Balance -945 2271 Result Diagrams: 02/16/18 04:29 02/16/18 04:29 Additional Labs: Accuchecks 02/16/18 02/15/18 02/15/18 04:26 22:18 16:59 POC Glucose 222 H 320 H 263 H 02/15/18 11:00 POC Glucose 302 H Radiology Reviewed by me: Yes (CXR - left sided effusion, basilar infiltrate B/L ) EKG Reviewed by me: Yes (Tele SR) Phys Exam - Physical Examination Constitutional: NAD Respiratory: no rales, wheezing present (scat) Cardiovascular: RRR, no rub Gastrointestinal: soft, positive bowel sounds Dx/Plan (1) Acute respiratory failure with hypoxia and hypercapnia Code(s): J96.01 - ACUTE RESPIRATORY FAILURE WITH HYPOXIA; J96.02 - ACUTE RESPIRATORY FAILURE WITH HYPERCAPNIA Status: Acute (2) COPD with exacerbation Code(s): J44.1 - CHRONIC OBSTRUCTIVE PULMONARY DISEASE W (ACUTE) EXACERBATION Status: Acute Comment: improving (3) Ileus Code(s): K56.7 - ILEUS, UNSPECIFIED Status: Acute Comment: tolerating regular diet (4) Tachyarrhythmia Code(s): R00.0 - TACHYCARDIA, UNSPECIFIED Status: Acute Comment: on Cardizem (5) Chronic anticoagulation Code(s): Z79.01 - REHAB PHYSICIAN (CURRENT) USE OF ANTICOAGULANTS Status: Chronic Comment: INR supratherapeutic (6) DM2 (diabetes mellitus, type 2) Status: Chronic Qualifiers: Chronic kidney disease stage: stage 2 (mild) - Plan continue antibiotics, PT/OT, DVT proph w/SCDs Hold Warfarin -: AM labs -: Cont current meds/Nebs/O2 Review of Systems - Review of Systems Respiratory: Cough, Dry, SOB with Excertion Cardiovascular: negative: chest pain, palpitations, orthopnea, paroxysmal nocturnal dyspnea, edema, light headedness, other Gastrointestinal: negative: Nausea, Vomiting, Abdominal Pain, Diarrhea, Constipation, Melena, Hematochezia, Other - Medications/Allergies Allergies/Adverse Reactions: Allergies Allergy/AdvReac Type Severity Reaction Status Date / Time Penicillins Allergy Severe Rash, and Verified 02/08/18 02:44 swelling ondansetron Allergy Intermediate Nausea Verified 02/08/18 02:44 [From Zofran (as hydrochloride)] cefprozil [Cefprozil] Allergy Nausea Verified 02/08/18 02:44 ciprofloxacin Allergy Nausea Verified 02/08/18 02:44 clindamycin Allergy Nausea Verified 02/08/18 02:44 codeine [Codeine] Allergy Rash Verified 02/08/18 02:44 metronidazole [From Flagyl] Allergy Nausea Verified 02/08/18 02:44 Sulfa (Sulfonamide Allergy Nausea Verified 02/08/18 02:44 Antibiotics) Medications: Current Medications Acetaminophen (Tylenol) 650 mg PO Q4H PRN PRN Reason: Headache/Fever or Pain Last Admin: 02/13/18 00:47 Dose: 650 mg Al Hydroxide/Mg Hydroxide (Maalox) 30 ml PO Q6H PRN PRN Reason: Heartburn or Indigestion Albuterol/Ipratropium (Duoneb) 3 ml NEB Q4H PRN PRN Reason: SOB &/or Wheezing Last Admin: 02/10/18 09:54 Dose: 3 ml Albuterol/Ipratropium (Duoneb) 3 ml EZPAP [id number] [facility] Last Admin: 02/16/18 05:51 Dose: 3 ml Alprazolam (Xanax) 0.25 mg PO Q6H PRN PRN Reason: Anxiety Last Admin: 02/15/18 22:17 Dose: 0.25 mg Benzonatate (Tessalon) 100 mg PO TIDPRN PRN PRN Reason: Cough Dextrose/Water (Dextrose 50%) 25 gm IVP PRN PRN PRN Reason: HYPOGLYCEMIA PROTOCOL Diltiazem HCl (Cardizem Cd) 180 mg PO DAILY [facility] Last Admin: 02/15/18 08:37 Dose: 180 mg Docusate Sodium (Colace) 100 mg PO BID [facility] Last Admin: 02/15/18 20:34 Dose: 100 mg Doxycycline Hyclate (Vibramycin) 100 mg PO BID [facility] Last Admin: 02/15/18 20:33 Dose: 100 mg Glucagon (Glucagon) 1 mg IM PRN PRN PRN Reason: HYPOGLYCEMIA PROTOCOL Guaifenesin (Mucinex) 600 mg PO Q12HR [facility] Last Admin: 02/15/18 20:33 Dose: 600 mg Hydralazine HCl (Apresoline) 10 mg SLOW IVP Q4H PRN PRN Reason: Systolic BP > 180 Last Admin: 02/09/18 13:10 Dose: 10 mg Dextrose/Water (D5w) 1,000 mls @ 0 mls/hr IV INF PRN; As Directed PRN Reason: HYPOGLYCEMIA PROTOCOL Insulin Glargine 15 units/ (Miscellaneous Medication) 0.15 mls @ 0 mls/hr SC [facility] Last Admin: 02/15/18 08:38 Dose: 0.15 mls Insulin Human Lispro (Humalog) 0 units SC .AGGRESSIVE SLIDING PRN; Protocol PRN Reason: AGGRESSIVE SLIDING SCALE Last Admin: 02/16/18 05:54 Dose: 6 unit Insulin Human Lispro (Humalog) 0 units SC .BEDTIME SLIDING SC PRN; Protocol PRN Reason: BEDTIME SLIDING SCALE Last Admin: 02/15/18 22:42 Dose: 4 unit Lactulose (Lactulose) 20 gm PO DAILYPRN PRN PRN Reason: Constipation Magnesium Hydroxide (Milk Of Magnesium) 30 ml PO DAILYPRN PRN PRN Reason: Constipation Methylprednisolone Sodium Succinate (Solu-Medrol) 40 mg IVP 0600,1800 [facility] Last Admin: 02/16/18 05:55 Dose: 40 mg Metoclopramide HCl (Reglan) 10 mg PO BIDPRN PRN PRN Reason: Nausea Miscellaneous Medication (Pharmacy To Dose) 0 each PO ASDIR [facility] Montelukast Sodium (Singulair) 10 mg PO QPM [facility] Last Admin: 02/15/18 20:33 Dose: 10 mg Nystatin (Mycostatin) 500,000 units SSW QID [facility] Last Admin: 02/15/18 20:34 Dose: 500,000 units Pantoprazole Sodium (Protonix) 40 mg PO DAILY [facility] Last Admin: 02/15/18 10:34 Dose: 40 mg Polyethylene Glycol (Miralax) 17 gm PO DAILYPRN PRN PRN Reason: Constipation Saccharomyces Boulardii (Florastor) 250 mg PO DAILY [facility] Last Admin: 02/15/18 08:38 Dose: 250 mg Sodium Chloride (Flush - Normal Saline) 10 ml IVF Q12HR [facility] Last Admin: 02/15/18 20:34 Dose: 10 ml Sodium Chloride (Flush - Normal Saline) 10 ml IVF PRN PRN PRN Reason: Saline Flush Last Admin: 02/15/18 17:00 Dose: 10 ml Warfarin Sodium (Coumadin) 2 mg PO 1700 [facility]
--- NOTE | 2018-02-16 08:12 | RAD ---
PORTABLE CHEST 1 VIEW: DATE: 02/16/18. TIME: 4:27 a.m. HISTORY: Respiratory distress FINDINGS/IMPRESSION: Allowing for differences in technique and positioning. No significant interval change is seen since the previous day's exam. POS: [facility]
[2018-02-16] MEDS: Nystatin 500,000 UNITS/5 ML UDCUP SSW SCH ×4 (08:42→20:23)
[2018-02-16] MEDS: Saccharomyces boulardii 250 MG CAP PO SCH (08:43)
[2018-02-16] MEDS: Insulin Glargine 15 UNITS in Pre-Filled Syringe 1 EACH SC SCH (08:43)
[2018-02-16] MEDS: guaiFENesin ER 600 MG TAB PO SCH ×2 (08:43→20:23)
[2018-02-16] MEDS: Doxycycline 100 MG CAP PO SCH ×2 (08:43→20:23)
[2018-02-16] MEDS: Docusate 100 MG CAP PO SCH ×2 (08:43→20:24)
[2018-02-16] MEDS: ALPRAZolam 0.25 MG TAB PO PRN ×3 (08:45→23:30)
--- NOTE | 2018-02-16 09:10 | PRG ---
DATE OF SERVICE: 02/16/2018 She is awake, alert, responsive. She wants to be transferred to the [place], which will be done. She is off the BiPAP. PHYSICAL EXAMINATION: VITAL SIGNS: Sats are 96%, pulse 124, temperature 96, respiration 14, blood pressure 170/74. GENERA L: Awake, alert, responsive. CHEST: Chest reveals decreased breath sounds, no wheezing. CARDIAC: Normal S1, S2, no gallops. ABDOMEN: Soft, no masses. White count 12,000. INR is 4.2. Electrolytes are normal. Chest x-ray this morning shows a left-sided rotation with a questionable infiltrate, effusion. IMPRESSION: 1. Morbid obesity. 2. Chronic obstructive pulmonary disease exacerbation. 3. Severe deconditioning. 4. Small pleural effusion. PLAN: At this stage, she can be transferred out of the ICU. PT and supportive care. Hopefully, she can be discharged home in a few days. I will follow.
[2018-02-16] MEDS: Insulin Glargine 10 UNITS in Pre-Filled Syringe 1 EACH SC SCH (20:22)
[2018-02-16] MEDS: Montelukast Sodium 10 mg Tablet PO SCH (20:23)
--- NOTE | 2018-02-16 23:10 | PDOC.PN ---
- Subjective Encounter Start Date: 02/16/18 Encounter Start Time: 11:00 Patient seen and examined for Resp failure. No new complaints. No overnight events - Objective Resuscitation Status: Resuscitation Status FULL:Full Resuscitation MAR Reviewed: Yes Vital Signs & Weight: Vital Signs (12 hours) Temp Pulse Resp BP BP Pulse Ox 02/16/18 19:15 98.5 F 97 18 93 L 02/16/18 19:12 98.5 F 97 18 147/92 H 93 L 02/16/18 18:56 95 20 94 L 02/16/18 15:43 97.9 F 91 19 138/81 93 L 02/16/18 14:38 88 18 97 02/16/18 11:32 97.4 F L 83 18 150/92 H 93 L Weight Weight 289 lb 7.471 oz Most Recent Monitor Data Heart Rate from ECG 91 NIBP 122/71 NIBP BP-Mean 95 Respiration from ECG 17 SpO2 90 I&O: 02/15/18 02/16/18 02/17/18 06:59 06:59 06:59 Intake Total 970 2271 1661 Output Total 1915 Balance -945 2271 1661 Result Diagrams: 02/16/18 04:29 02/17/18 06:24 Additional Labs: Accuchecks 02/16/18 02/16/18 02/16/18 20:23 17:55 12:02 POC Glucose 220 H 136 H 243 H 02/16/18 04:26 POC Glucose 222 H Radiology Reviewed by me: Yes (CXR - no sig change) Phys Exam - Physical Examination Constitutional: NAD Respiratory: no wheezing, no rhonchi Cardiovascular: RRR, no rub Gastrointestinal: soft, non-tender, positive bowel sounds Dx/Plan (1) Acute respiratory failure with hypoxia and hypercapnia Code(s): J96.01 - ACUTE RESPIRATORY FAILURE WITH HYPOXIA; J96.02 - ACUTE RESPIRATORY FAILURE WITH HYPERCAPNIA Status: Acute (2) COPD with exacerbation Code(s): J44.1 - CHRONIC OBSTRUCTIVE PULMONARY DISEASE W (ACUTE) EXACERBATION Status: Acute Comment: improving (3) Ileus Code(s): K56.7 - ILEUS, UNSPECIFIED Status: Acute Comment: tolerating regular diet (4) Tachyarrhythmia Code(s): R00.0 - TACHYCARDIA, UNSPECIFIED Status: Acute Comment: on Cardizem (5) Chronic anticoagulation Code(s): Z79.01 - CARE HOME (CURRENT) USE OF ANTICOAGULANTS Status: Chronic Comment: INR supratherapeutic (6) Hyperglycemia, drug-induced Code(s): R73.9 - HYPERGLYCEMIA, UNSPECIFIED; T50.905A - ADVERSE EFFECT OF UNSP DRUG/MEDS/BIOL SUBST, INIT Status: Acute Comment: prob steroid induced - Plan PT/OT, respiratory therapy Warfarin on hold -: Increase Lantus dose -: AM labs -: Check A1c, Rehab vs SNF eval -: Cont current meds as below Review of Systems - Review of Systems Constitutional: negative: fever, chills, sweats, weakness, malaise, other Gastrointestinal: negative: Nausea, Vomiting, Abdominal Pain, Diarrhea, Constipation, Melena, Hematochezia, Other - Medications/Allergies Allergies/Adverse Reactions: Allergies Allergy/AdvReac Type Severity Reaction Status Date / Time Penicillins Allergy Severe Rash, and Verified 02/08/18 02:44 swelling ondansetron Allergy Intermediate Nausea Verified 02/08/18 02:44 [From Zofran (as hydrochloride)] cefprozil [Cefprozil] Allergy Nausea Verified 02/08/18 02:44 ciprofloxacin Allergy Nausea Verified 02/08/18 02:44 clindamycin Allergy Nausea Verified 02/08/18 02:44 codeine [Codeine] Allergy Rash Verified 02/08/18 02:44 metronidazole [From Flagyl] Allergy Nausea Verified 02/08/18 02:44 Sulfa (Sulfonamide Allergy Nausea Verified 02/08/18 02:44 Antibiotics) Medications: Current Medications Acetaminophen (Tylenol) 650 mg PO Q4H PRN PRN Reason: Headache/Fever or Pain Last Admin: 02/13/18 00:47 Dose: 650 mg Al Hydroxide/Mg Hydroxide (Maalox) 30 ml PO Q6H PRN PRN Reason: Heartburn or Indigestion Albuterol/Ipratropium (Duoneb) 3 ml NEB Q4H PRN PRN Reason: SOB &/or Wheezing Last Admin: 02/10/18 09:54 Dose: 3 ml Albuterol/Ipratropium (Duoneb) 3 ml EZPAP [id number] [facility] Last Admin: 02/16/18 18:56 Dose: 3 ml Alprazolam (Xanax) 0.25 mg PO Q6H PRN PRN Reason: Anxiety Last Admin: 02/16/18 17:52 Dose: 0.25 mg Benzonatate (Tessalon) 100 mg PO TIDPRN PRN PRN Reason: Cough Dextrose/Water (Dextrose 50%) 25 gm IVP PRN PRN PRN Reason: HYPOGLYCEMIA PROTOCOL Diltiazem HCl (Cardizem Cd) 180 mg PO DAILY [facility] Last Admin: 02/16/18 08:43 Dose: 180 mg Docusate Sodium (Colace) 100 mg PO BID [facility] Last Admin: 02/16/18 20:24 Dose: Not Given Doxycycline Hyclate (Vibramycin) 100 mg PO BID [facility] Last Admin: 02/16/18 20:23 Dose: 100 mg Glucagon (Glucagon) 1 mg IM PRN PRN PRN Reason: HYPOGLYCEMIA PROTOCOL Guaifenesin (Mucinex) 600 mg PO Q12HR [facility] Last Admin: 02/16/18 20:23 Dose: 600 mg Hydralazine HCl (Apresoline) 10 mg SLOW IVP Q4H PRN PRN Reason: Systolic BP > 180 Last Admin: 02/09/18 13:10 Dose: 10 mg Dextrose/Water (D5w) 1,000 mls @ 0 mls/hr IV INF PRN; As Directed PRN Reason: HYPOGLYCEMIA PROTOCOL Insulin Glargine 15 units/ (Miscellaneous Medication) 0.15 mls @ 0 mls/[facility] [place] [facility] Last Admin: 02/16/18 08:43 Dose: 0.15 mls Insulin Glargine 10 units/ (Miscellaneous Medication) 0.1 mls @ 0 mls/hr SC [facility] Last Admin: 02/16/18 20:22 Dose: 0.1 mls Insulin Human Lispro (Humalog) 0 units SC .AGGRESSIVE SLIDING PRN; Protocol PRN Reason: AGGRESSIVE SLIDING SCALE Last Admin: 02/16/18 14:15 Dose: 6 unit Insulin Human Lispro (Humalog) 0 units SC .BEDTIME SLIDING SC PRN; Protocol PRN Reason: BEDTIME SLIDING SCALE Last Admin: 02/16/18 20:22 Dose: 2 unit Lactulose (Lactulose) 20 gm PO DAILYPRN PRN PRN Reason: Constipation Magnesium Hydroxide (Milk Of Magnesium) 30 ml PO DAILYPRN PRN PRN Reason: Constipation Methylprednisolone Sodium Succinate (Solu-Medrol) 40 mg IVP 0600,1800 [facility] Last Admin: 02/16/18 17:49 Dose: 40 mg Metoclopramide HCl (Reglan) 10 mg PO BIDPRN PRN PRN Reason: Nausea Miscellaneous Medication (Pharmacy To Dose) 0 each PO ASDIR [facility] Montelukast Sodium (Singulair) 10 mg PO QPM [facility] Last Admin: 02/16/18 20:23 Dose: 10 mg Nystatin (Mycostatin) 500,000 units SSW QID [facility] Last Admin: 02/16/18 20:23 Dose: 500,000 units Pantoprazole Sodium (Protonix) 40 mg PO DAILY [facility] Last Admin: 02/16/18 08:43 Dose: 40 mg Polyethylene Glycol (Miralax) 17 gm PO DAILYPRN PRN PRN Reason: Constipation Saccharomyces Boulardii (Florastor) 250 mg PO DAILY [facility] Last Admin: 02/16/18 08:43 Dose: 250 mg Sodium Chloride (Flush - Normal Saline) 10 ml IVF Q12HR [facility] Last Admin: 02/16/18 20:24 Dose: 10 ml Sodium Chloride (Flush - Normal Saline) 10 ml IVF PRN PRN PRN Reason: Saline Flush Last Admin: 02/15/18 17:00 Dose: 10 ml
[2018-02-17] MEDS: ALPRAZolam 0.25 MG TAB PO PRN ×2 (06:00→16:46)
[2018-02-17] MEDS: HumaLOG 300 UNITS/3 ML VIAL SC PRN ×3 (06:14→16:48)
[2018-02-17 06:41] LABS: INR-International Normal Ratio 3.6; Prothrombin Time 37.8 SEC (12.0-14.7)
[2018-02-17 06:47] LABS: Hemoglobin A1c 6.7 % (4.0-6.0)
[2018-02-17 06:59] LABS: Anion Gap 13 mmol/L (10-20); BUN (Urea Nitrogen) 34 mg/dL (9.8-20.1); Calc. Creatinine Clearance 146 mL/min (70-130); Calcium 8.6 mg/dL (7.8-10.44); Carbon Dioxide 34 mmol/L (23-31); Chloride 94 mmol/L (98-107); Estimated GFR-MDRD 71; Glucose 241 mg/dL (80-115); Potassium 3.9 mmol/L (3.5-5.1); Sodium 137 mmol/L (136-145)
[2018-02-17] MEDS: Nystatin 500,000 UNITS/5 ML UDCUP SSW SCH ×4 (08:29→21:58)
[2018-02-17] MEDS: guaiFENesin ER 600 MG TAB PO SCH ×2 (08:29→21:58)
[2018-02-17] MEDS: Docusate 100 MG CAP PO SCH ×2 (08:29→21:59)
[2018-02-17] MEDS: Doxycycline 100 MG CAP PO SCH ×2 (08:29→21:59)
[2018-02-17] MEDS: Insulin Glargine 15 UNITS in Pre-Filled Syringe 1 EACH SC SCH (08:30)
[2018-02-17] MEDS: Saccharomyces boulardii 250 MG CAP PO SCH (08:30)
--- NOTE | 2018-02-17 08:43 | RAD ---
PORTABLE CHEST 1 VIEW: Date: 02/17/18 Time: 0715 hours HISTORY: Respiratory distress. FINDINGS/IMPRESSION: Comparison made with exam from previous day. The patient is rotated to the left. The heart size is stable. Bibasilar air space opacities are again seen. No pneumothoraces or kristie pulmonary edema seen. The left pleural effusion is again seen. POS: [facility]
--- NOTE | 2018-02-17 12:23 | PRG ---
DATE OF SERVICE: 02/17/2018 SUBJECTIVE: This is a 63-year-old female, pretty much bedridden. INR is 3.6. Electrolytes are norm al. She says she is less short of breath. No coughing or wheezing. PHYSICAL EXAMINATION: VITAL SIGNS: 94% sats on 2 liters, respiratory rate 18, temperature 97, blood pressure 137/94. CHEST: Decreased breath sounds, no wheezing. CARDIAC: Normal S1, S2. No gallops. ABDOMEN: Soft, no masses. IMAGING DATA: X-ray shows stable findings, left, chronic pleural changes. IMPRESSION: Morbid obesity, severe deconditioning, chronic obstructive pulmonary disease. PLAN: Discontinue IV antibiotics, PT. Supportive care over the next 24-48 hours.
--- NOTE | 2018-02-17 16:23 | PDOC.PN ---
- Subjective Encounter Start Date: 02/17/18 Encounter Start Time: 10:30 Patient seen and examined for Resp failure. No new complaints. No overnight events. Feels gen weak. - Objective Resuscitation Status: Resuscitation Status FULL:Full Resuscitation MAR Reviewed: Yes Vital Signs & Weight: Vital Signs (12 hours) Temp Pulse Resp BP BP Pulse Ox 02/17/18 13:31 79 16 94 L 02/17/18 11:15 98.5 F 80 18 168/96 H 92 L 02/17/18 09:30 74 18 94 L 02/17/18 08:00 97.9 F 86 16 92 L 02/17/18 07:43 97.9 F 86 16 137/94 H 92 L 02/17/18 05:48 80 18 94 L 02/17/18 05:00 97.7 F 80 20 146/95 H 94 L Weight Weight 283 lb 6.4 oz Most Recent Monitor Data Heart Rate from ECG 91 NIBP 122/71 NIBP BP-Mean 95 Respiration from ECG 17 SpO2 90 I&O: 02/16/18 02/17/18 02/18/18 06:59 06:59 06:59 Intake Total 2271 2661 Balance 2271 2661 Result Diagrams: 02/16/18 04:29 02/17/18 06:24 Additional Labs: Accuchecks 02/17/18 02/17/18 02/16/18 11:16 06:03 20:23 POC Glucose 219 H 283 H 220 H 02/16/18 17:55 POC Glucose 136 H Radiology Reviewed by me: Yes (CXR - no new infiltrate) Phys Exam - Physical Examination Constitutional: NAD Respiratory: no wheezing, no rhonchi Cardiovascular: RRR, no rub Gastrointestinal: soft, non-tender, positive bowel sounds Neurological: moves all 4 limbs Dx/Plan (1) Acute respiratory failure with hypoxia and hypercapnia Code(s): J96.01 - ACUTE RESPIRATORY FAILURE WITH HYPOXIA; J96.02 - ACUTE RESPIRATORY FAILURE WITH HYPERCAPNIA Status: Acute Comment: improving (2) COPD with exacerbation Code(s): J44.1 - CHRONIC OBSTRUCTIVE PULMONARY DISEASE W (ACUTE) EXACERBATION Status: Acute Comment: improving (3) Ileus Code(s): K56.7 - ILEUS, UNSPECIFIED Status: Acute Comment: resolved. 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 Review of Systems - Review of Systems Cardiovascular: negative: chest pain, palpitations, orthopnea, paroxysmal nocturnal dyspnea, edema, light headedness, other Gastrointestinal: negative: Nausea, Vomiting, Abdominal Pain, Diarrhea, Constipation, Melena, Hematochezia, Other - Medications/Allergies Allergies/Adverse Reactions: Allergies Allergy/AdvReac Type Severity Reaction Status Date / Time Penicillins Allergy Severe Rash, and Verified 02/08/18 02:44 swelling ondansetron Allergy Intermediate Nausea Verified 02/08/18 02:44 [From Zofran (as hydrochloride)] cefprozil [Cefprozil] Allergy Nausea Verified 02/08/18 02:44 ciprofloxacin Allergy Nausea Verified 02/08/18 02:44 clindamycin Allergy Nausea Verified 02/08/18 02:44 codeine [Codeine] Allergy Rash Verified 02/08/18 02:44 metronidazole [From Flagyl] Allergy Nausea Verified 02/08/18 02:44 Sulfa (Sulfonamide Allergy Nausea Verified 02/08/18 02:44 Antibiotics) Medications: Current Medications Acetaminophen (Tylenol) 650 mg PO Q4H PRN PRN Reason: Headache/Fever or Pain Last Admin: 02/13/18 00:47 Dose: 650 mg Al Hydroxide/Mg Hydroxide (Maalox) 30 ml PO Q6H PRN PRN Reason: Heartburn or Indigestion Albuterol/Ipratropium (Duoneb) 3 ml NEB Q4H PRN PRN Reason: SOB &/or Wheezing Last Admin: 02/10/18 09:54 Dose: 3 ml Albuterol/Ipratropium (Duoneb) 3 ml EZPAP [id number] [facility] Last Admin: 02/17/18 13:31 Dose: 3 ml Alprazolam (Xanax) 0.25 mg PO Q6H PRN PRN Reason: Anxiety Last Admin: 02/17/18 06:00 Dose: 0.25 mg Benzonatate (Tessalon) 100 mg PO TIDPRN PRN PRN Reason: Cough Dextrose/Water (Dextrose 50%) 25 gm IVP PRN PRN PRN Reason: HYPOGLYCEMIA PROTOCOL Diltiazem HCl (Cardizem Cd) 180 mg PO DAILY [facility]S [facility]EDS AT [facility] Last Admin: 02/17/18 08:30 Dose: 180 mg Docusate Sodium (Colace) 100 mg PO BID COUNTS INCLUDE 234 BEDS AT THE [facility] Last Admin: 02/17/18 08:29 Dose: Not Given Doxycycline Hyclate (Vibramycin) 100 mg PO BID COUNTS INCLUDE 234 BEDS AT THE [facility] Last Admin: 02/17/18 08:29 Dose: 100 mg Glucagon (Glucagon) 1 mg IM PRN PRN PRN Reason: HYPOGLYCEMIA PROTOCOL Guaifenesin (Mucinex) 600 mg PO Q12HR COUNTS INCLUDE 234 BEDS AT THE [facility] Last Admin: 02/17/18 08:29 Dose: 600 mg Hydralazine HCl (Apresoline) 10 mg SLOW IVP Q4H PRN PRN Reason: Systolic BP > 180 Last Admin: 02/09/18 13:10 Dose: 10 mg Dextrose/Water (D5w) 1,000 mls @ 0 mls/hr IV INF PRN; As Directed PRN Reason: HYPOGLYCEMIA PROTOCOL Insulin Glargine 15 units/ (Miscellaneous Medication) 0.15 mls @ 0 mls/hr SC QAM COUNTS INCLUDE 234 BEDS AT THE [facility] Last Admin: 02/17/18 08:30 Dose: 0.15 mls Insulin Glargine 10 units/ (Miscellaneous Medication) 0.1 mls @ 0 mls/hr SC HS COUNTS INCLUDE 234 BEDS AT THE [facility] Last Admin: 02/16/18 20:22 Dose: 0.1 mls Insulin Human Lispro (Humalog) 0 units SC .AGGRESSIVE SLIDING PRN; Protocol PRN Reason: AGGRESSIVE SLIDING SCALE Last Admin: 02/17/18 12:33 Dose: 6 unit Insulin Human Lispro (Humalog) 0 units SC .BEDTIME SLIDING SC PRN; Protocol PRN Reason: BEDTIME SLIDING SCALE Last Admin: 02/16/18 20:22 Dose: 2 unit Lactulose (Lactulose) 20 gm PO DAILYPRN PRN PRN Reason: Constipation Magnesium Hydroxide (Milk Of Magnesium) 30 ml PO DAILYPRN PRN PRN Reason: Constipation Metoclopramide HCl (Reglan) 10 mg PO BIDPRN PRN PRN Reason: Nausea Miscellaneous Medication (Pharmacy To Dose) 0 each PO ASDIR COUNTS INCLUDE 234 BEDS AT THE [facility] Montelukast Sodium (Singulair) 10 mg PO QPM COUNTS INCLUDE 234 BEDS AT THE [facility] Last Admin: 02/16/18 20:23 Dose: 10 mg Nystatin (Mycostatin) 500,000 units SSW QID COUNTS INCLUDE 234 BEDS AT THE [facility] Last Admin: 02/17/18 12:33 Dose: 500,000 units Pantoprazole Sodium (Protonix) 40 mg PO DAILY COUNTS INCLUDE 234 BEDS AT THE [facility] Last Admin: 02/17/18 08:29 Dose: 40 mg Polyethylene Glycol (Miralax) 17 gm PO DAILYPRN PRN PRN Reason: Constipation Prednisone (Prednisone) 20 mg PO QAM-[facility] Saccharomyces Boulardii (Florastor) 250 mg PO DAILY COUNTS INCLUDE 234 BEDS AT THE [facility] Last Admin: 02/17/18 08:30 Dose: 250 mg Sodium Chloride (Flush - Normal Saline) 10 ml IVF Q12HR COUNTS INCLUDE 234 BEDS AT THE [facility] Last Admin: 02/17/18 08:31 Dose: 10 ml Sodium Chloride (Flush - Normal Saline) 10 ml IVF PRN PRN PRN Reason: Saline Flush Last Admin: 02/15/18 17:00 Dose: 10 ml
[2018-02-17] MEDS: Montelukast Sodium 10 mg Tablet PO SCH (21:58)
[2018-02-17] MEDS: Insulin Glargine 10 UNITS in Pre-Filled Syringe 1 EACH SC SCH (21:59)
[2018-02-18 06:55] LABS: Hemoglobin 12.2 g/dL (12.0-16.0); Platelet Count 184 thou/uL (130-400)
[2018-02-18 07:10] LABS: INR-International Normal Ratio 2.9; Prothrombin Time 31.6 SEC (12.0-14.7)
[2018-02-18] MEDS: Docusate 100 MG CAP PO SCH ×2 (07:22→18:04)
[2018-02-18] MEDS: predniSONE 20 MG TAB PO SCH (08:30)
[2018-02-18] MEDS: Saccharomyces boulardii 250 MG CAP PO SCH (08:31)
[2018-02-18] MEDS: Doxycycline 100 MG CAP PO SCH ×2 (08:31→20:23)
[2018-02-18] MEDS: guaiFENesin ER 600 MG TAB PO SCH ×2 (08:32→20:23)
[2018-02-18] MEDS: ALPRAZolam 0.25 MG TAB PO PRN ×3 (08:33→23:09)
--- NOTE | 2018-02-18 09:48 | PRG ---
DATE OF SERVICE: 02/18/2018 This morning she is awake, alert, responsive. She is weak, but she is less short of breath. PHYSICAL EXAMINATION: VITAL SIGNS: Her sats are 90% on 3 liters, temperature 97, pulse 85, respirations 20, blood pressure 130/87. CHEST: Chest reveals decreased breath sounds, occasional wheeze. CARDIAC: Normal S1, S2, no gallops. ABDOMEN: Soft, no masses. INR is 2.3 today. IMPRESSION: 1. End-stage chronic obstructive pulmonary disease. 2. Severe deconditioning. Abdominal x-ray is stable. PLAN: Restart low dose Coumadin. Placement. PT and supportive care.
[2018-02-18] MEDS: Insulin Glargine 15 UNITS in Pre-Filled Syringe 1 EACH SC SCH (09:53)
[2018-02-18] MEDS: Nystatin 500,000 UNITS/5 ML UDCUP SSW SCH ×3 (09:53→19:13)
[2018-02-18 12:24] LABS: #Eosinphils 0.2 thou/uL (0.0-0.7); #Lymphocytes 2.1 thou/uL (1.20-3.40); #Monocytes 1.1 thou/uL (0.11-0.59); #Neutrophils 10.8 thou/uL (1.40-6.50); %Eosinophils 1.5 % (0.0-10.0); %Lymphocytes 14.8 % (21.0-51.0); %Monocytes 7.8 % (0.0-10.0); %Neutrophils 75.8 % (42.0-75.0); Mean Corpuscular HGB CONC 31.4 g/dL (32.0-36.0); Mean Corpuscular Hemoglobin 28.5 pg (27.0-31.0); Mean Platelet Volume 7.6 fL (7.4-10.4); RBC Distribution Width 14.7 % (11.5-14.5); Red Blood Cell (RBC) Count 4.29 mill/uL (4.20-5.40); White Blood Cell (WBC) Count 14.3 thou/uL (4.8-10.8)
[2018-02-18 13:33] VITALS: BMI 45.7
--- NOTE | 2018-02-18 15:29 | PDOC.PN ---
- Subjective Encounter Start Date: 02/18/18 Encounter Start Time: 10:00 Subjective: pt states she is having some diarrhea - Objective Resuscitation Status: Resuscitation Status FULL:Full Resuscitation Vital Signs & Weight: Vital Signs (12 hours) Temp Pulse Resp BP Pulse Ox 02/18/18 13:53 89 16 02/18/18 09:45 91 16 96 02/18/18 08:00 97.8 F 91 16 92 L 02/18/18 07:59 97.8 F 85 20 130/87 93 L 02/18/18 06:42 85 18 95 Weight Admit Weight 312 lb 3.2 oz Weight 284 lb 6.341 oz Most Recent Monitor Data Heart Rate from ECG 91 NIBP 122/71 NIBP BP-Mean 95 Respiration from ECG 17 SpO2 90 I&O: 02/17/18 02/18/18 02/19/18 06:59 06:59 06:59 Intake Total 2661 900 Balance 2661 900 Result Diagrams: 02/18/18 06:30 02/17/18 06:24 Additional Labs: Accuchecks 02/18/18 02/18/18 02/17/18 11:42 05:17 20:42 POC Glucose 212 H 118 H 178 H 02/17/18 16:50 POC Glucose 242 H Phys Exam - Physical Examination HEENT: PERRLA, moist MMs, sclera anicteric, TM's clear, oral pharynx no lesions , 2+ tonsils Neck: no nodes, no JVD, supple, full ROM Respiratory: wheezing present to lung bases Cardiovascular: RRR, no significant murmur, no rub, gallop, irregular Gastrointestinal: soft, non-tender, no distention, positive bowel sounds Musculoskeletal: no edema, pulses present, edema present Dx/Plan (1) Acute respiratory failure with hypoxia and hypercapnia Code(s): J96.01 - ACUTE RESPIRATORY FAILURE WITH HYPOXIA; J96.02 - ACUTE RESPIRATORY FAILURE WITH HYPERCAPNIA Status: Acute Comment: improving (2) COPD with exacerbation Code(s): J44.1 - CHRONIC OBSTRUCTIVE PULMONARY DISEASE W (ACUTE) EXACERBATION Status: Acute Comment: improving (3) Ileus Code(s): K56.7 - ILEUS, UNSPECIFIED Status: Acute Comment: resolved. s/p NG tube - tolerating regular diet (4) Diarrhea Code(s): R19.7 - DIARRHEA, UNSPECIFIED Status: Acute - Plan * . plan: From respiratory stand point pt is stable. pt is having diarrhea. pt was on stool softeners. mild elevation on wbc. will monitor. pt had 10 bouts of diarrhea and today had 2-3. will see how she does. I do not think her diarrhea is due to a infectious process. spoke with case management for placement. Review of Systems - Review of Systems Eyes: negative: Pain, Vision Change, Conjunctivae Inflammation, Eyelid Inflammation, Redness, Other ENT: negative: Ear Pain, Ear Discharge, Nose Pain, Nose Discharge, Nose Congestion, Mouth Pain, Mouth Swelling, Throat Pain, Throat Swelling, Other Respiratory: negative: Cough, Dry, Shortness of Breath, Hemoptysis, SOB with Excertion, Pleuritic Pain, Sputum, Wheezing Gastrointestinal: Diarrhea - Medications/Allergies Allergies/Adverse Reactions: Allergies Allergy/AdvReac Type Severity Reaction Status Date / Time Penicillins Allergy Severe Rash, and Verified 02/08/18 02:44 swelling ondansetron Allergy Intermediate Nausea Verified 02/08/18 02:44 [From Zofran (as hydrochloride)] cefprozil [Cefprozil] Allergy Nausea Verified 02/08/18 02:44 ciprofloxacin Allergy Nausea Verified 02/08/18 02:44 clindamycin Allergy Nausea Verified 02/08/18 02:44 codeine [Codeine] Allergy Rash Verified 02/08/18 02:44 metronidazole [From Flagyl] Allergy Nausea Verified 02/08/18 02:44 Sulfa (Sulfonamide Allergy Nausea Verified 02/08/18 02:44 Antibiotics) Medications: Current Medications Acetaminophen (Tylenol) 650 mg PO Q4H PRN PRN Reason: Headache/Fever or Pain Last Admin: 02/13/18 00:47 Dose: 650 mg Al Hydroxide/Mg Hydroxide (Maalox) 30 ml PO Q6H PRN PRN Reason: Heartburn or Indigestion Albuterol/Ipratropium (Duoneb) 3 ml NEB Q4H PRN PRN Reason: SOB &/or Wheezing Last Admin: 02/10/18 09:54 Dose: 3 ml Albuterol/Ipratropium (Duoneb) 3 ml EZPAP [id number] [facility] Last Admin: 02/18/18 13:53 Dose: 3 ml Alprazolam (Xanax) 0.25 mg PO Q6H PRN PRN Reason: Anxiety Last Admin: 02/18/18 15:07 Dose: 0.25 mg Benzonatate (Tessalon) 100 mg PO TIDPRN PRN PRN Reason: Cough Dextrose/Water (Dextrose 50%) 25 gm IVP PRN PRN PRN Reason: HYPOGLYCEMIA PROTOCOL Diltiazem HCl (Cardizem Cd) 180 mg PO DAILY [facility] Last Admin: 02/18/18 08:32 Dose: 180 mg Docusate Sodium (Colace) 100 mg PO BID [facility] Last Admin: 02/18/18 07:22 Dose: Not Given Doxycycline Hyclate (Vibramycin) 100 mg PO BID [facility] Last Admin: 02/18/18 08:31 Dose: 100 mg Glucagon (Glucagon) 1 mg IM PRN PRN PRN Reason: HYPOGLYCEMIA PROTOCOL Guaifenesin (Mucinex) 600 mg PO Q12HR [facility] Last Admin: 02/18/18 08:32 Dose: 600 mg Hydralazine HCl (Apresoline) 10 mg SLOW IVP Q4H PRN PRN Reason: Systolic BP > 180 Last Admin: 02/09/18 13:10 Dose: 10 mg Dextrose/Water (D5w) 1,000 mls @ 0 mls/hr IV INF PRN; As Directed PRN Reason: HYPOGLYCEMIA PROTOCOL Insulin Glargine 15 units/ (Miscellaneous Medication) 0.15 mls @ 0 mls/hr SC [facility] Last Admin: 02/18/18 09:53 Dose: 0.15 mls Insulin Glargine 10 units/ (Miscellaneous Medication) 0.1 mls @ 0 mls/hr SC [facility] Last Admin: 02/17/18 21:59 Dose: 0.1 mls Insulin Human Lispro (Humalog) 0 units SC .AGGRESSIVE SLIDING PRN; Protocol PRN Reason: AGGRESSIVE SLIDING SCALE Last Admin: 02/17/18 16:48 Dose: 6 unit Insulin Human Lispro (Humalog) 0 units SC .BEDTIME SLIDING SC PRN; Protocol PRN Reason: BEDTIME SLIDING SCALE Last Admin: 02/16/18 20:22 Dose: 2 unit Lactulose (Lactulose) 20 gm PO DAILYPRN PRN PRN Reason: Constipation Magnesium Hydroxide (Milk Of Magnesium) 30 ml PO DAILYPRN PRN PRN Reason: Constipation Metoclopramide HCl (Reglan) 10 mg PO BIDPRN PRN PRN Reason: Nausea Miscellaneous Medication (Pharmacy To Dose) 0 each PO ASDIR [facility] Montelukast Sodium (Singulair) 10 mg PO QPM [facility] Last Admin: 02/17/18 21:58 Dose: 10 mg Nystatin (Mycostatin) 500,000 units SSW QID [facility] Last Admin: 02/18/18 15:09 Dose: 500,000 units Pantoprazole Sodium (Protonix) 40 mg PO DAILY [facility] Last Admin: 02/18/18 08:32 Dose: 40 mg Polyethylene Glycol (Miralax) 17 gm PO DAILYPRN PRN PRN Reason: Constipation Prednisone (Prednisone) 20 mg PO QAM-WM [facility] Last Admin: 02/18/18 08:30 Dose: 20 mg Saccharomyces Boulardii (Florastor) 250 mg PO DAILY [facility] Last Admin: 02/18/18 08:31 Dose: 250 mg Sodium Chloride (Flush - Normal Saline) 10 ml IVF Q12HR [facility] Last Admin: 02/18/18 09:53 Dose: 10 ml Sodium Chloride (Flush - Normal Saline) 10 ml IVF PRN PRN PRN Reason: Saline Flush Last Admin: 02/15/18 17:00 Dose: 10 ml Warfarin Sodium (Coumadin) 1.5 mg PO 1700 [facility] Last Admin: 02/18/18 15:06 Dose: 1.5 mg
[2018-02-18] MEDS ORDERED: Warfarin Sodium 1.5 MG TAB PO SCH (17:00)
[2018-02-18] MEDS ORDERED: Warfarin Sodium 0.5 MG HALF.TAB PO SCH (17:00)
[2018-02-18] MEDS: HumaLOG 300 UNITS/3 ML VIAL SC PRN ×2 (18:04→20:25)
[2018-02-18] MEDS: Montelukast Sodium 10 mg Tablet PO SCH (20:23)
[2018-02-18] MEDS: Insulin Glargine 10 UNITS in Pre-Filled Syringe 1 EACH SC SCH (20:24)
[2018-02-19 04:06] LABS: INR-International Normal Ratio 2.3; Prothrombin Time 25.9 SEC (12.0-14.7)
[2018-02-19] MEDS: ALPRAZolam 0.25 MG TAB PO PRN ×2 (08:06→14:11)
[2018-02-19] MEDS: Insulin Glargine 15 UNITS in Pre-Filled Syringe 1 EACH SC SCH (08:36)
[2018-02-19] MEDS: Saccharomyces boulardii 250 MG CAP PO SCH (08:39)
[2018-02-19] MEDS: Doxycycline 100 MG CAP PO SCH (08:39)
[2018-02-19] MEDS: guaiFENesin ER 600 MG TAB PO SCH (08:39)
[2018-02-19] MEDS: predniSONE 20 MG TAB PO SCH (08:39)
[2018-02-19] MEDS: Docusate 100 MG CAP PO SCH (08:40)
[2018-02-19] MEDS: Nystatin 500,000 UNITS/5 ML UDCUP SSW SCH ×3 (08:43→14:22)
[2018-02-19] MEDS ORDERED: Warfarin Sodium 0.5 MG HALF.TAB PO SCH (09:11)
--- NOTE | 2018-02-19 09:28 | PRG ---
DATE OF SERVICE: 02/19/2018 Ms. Rojas is awake, alert, responsive. She is still having diarrhea. PHYSICAL EXAMINATION: VITAL SIGNS: Sats are 96% on room air, respiration 14, temperature 97, pulse 83, blood pressure 130/ 87. GENERAL: Denies any pain, shortness of breath, severely deconditioned, not walking much. CHEST: Chest reveals decreased breath sounds without any wheezing. CARDIAC: Normal S1, S2, no gallops. ABDOMEN: Soft, no masses. INR is 2.3 on low dose Coumadin. IMPRESSION: 1. End-stage chronic obstructive pulmonary disease. 2. Severe deconditioning. 3. Long-term anticoagulation. PLAN: She is going to be transferred to [facility]. Ongoing PT and supportive care. Follow up with Dr. Caro on an outpatient basis.
--- NOTE | 2018-02-19 09:47 | PDOC.PN ---
- Subjective Encounter Start Date: 02/19/18 Encounter Start Time: 07:40 -: old records requested/rev Patient seen and examined for copd exacerbation. no more diarrhoea No new complaints. No overnight events - Objective Resuscitation Status: Resuscitation Status FULL:Full Resuscitation MAR Reviewed: Yes Vital Signs & Weight: Vital Signs (12 hours) Temp Pulse Resp BP Pulse Ox 02/19/18 08:27 97.7 F 83 14 130/87 97 02/19/18 06:18 85 18 97 02/19/18 01:59 82 02/19/18 01:56 82 16 97 02/18/18 22:02 94 02/18/18 21:59 94 23 H 94 L Weight Admit Weight 312 lb 3.2 oz Weight 282 lb 2 oz Most Recent Monitor Data Heart Rate from ECG 91 NIBP 122/71 NIBP BP-Mean 95 Respiration from ECG 17 SpO2 90 I&O: 02/18/18 02/19/18 02/20/18 06:59 06:59 06:59 Intake Total 900 1989 Balance 900 1989 Result Diagrams: 02/18/18 06:30 02/17/18 06:24 Additional Labs: Accuchecks 02/19/18 02/18/18 02/18/18 04:51 19:40 16:59 POC Glucose 92 257 H 262 H 02/18/18 11:42 POC Glucose 212 H Phys Exam - Physical Examination Constitutional: NAD HEENT: PERRLA, moist MMs, sclera anicteric Neck: no JVD, supple Respiratory: no wheezing, no rales, no rhonchi Cardiovascular: RRR, no significant murmur, no rub Gastrointestinal: soft, non-tender, no distention, positive bowel sounds morbid obesity Musculoskeletal: no edema, pulses present Neurological: non-focal, normal sensation Lymphatic: no nodes Psychiatric: normal affect, A&O x 3 Skin: no rash, normal turgor Dx/Plan (1) Acute respiratory failure with hypoxia and hypercapnia Code(s): J96.01 - ACUTE RESPIRATORY FAILURE WITH HYPOXIA; J96.02 - ACUTE RESPIRATORY FAILURE WITH HYPERCAPNIA Status: Acute Comment: improving (2) COPD with exacerbation Code(s): J44.1 - CHRONIC OBSTRUCTIVE PULMONARY DISEASE W (ACUTE) EXACERBATION Status: Acute Comment: improving (3) DM2 (diabetes mellitus, type 2) Status: Acute Qualifiers: Chronic kidney disease stage: stage 2 (mild) Comment: new onset (4) Diarrhea Code(s): R19.7 - DIARRHEA, UNSPECIFIED Status: Acute (5) Hyperglycemia, drug-induced Code(s): R73.9 - HYPERGLYCEMIA, UNSPECIFIED; T50.905A - ADVERSE EFFECT OF UNSP DRUG/MEDS/BIOL SUBST, INIT Status: Acute Comment: prob steroid induced (6) Ileus Code(s): K56.7 - ILEUS, UNSPECIFIED Status: Acute Comment: resolved. 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 continue GI prophylaxis (13) H/O deep venous thrombosis Code(s): Z86.718 - PERSONAL HISTORY OF OTHER VENOUS THROMBOSIS AND EMBOLISM Status: Chronic (14) Hypertension Code(s): I10 - ESSENTIAL (PRIMARY) HYPERTENSION Status: Chronic Qualifiers: Hypertension type: essential hypertension Qualified Code(s): I10 - Essential (primary) hypertension (15) Morbid obesity with BMI of 45.0-49.9, adult Code(s): E66.01 - MORBID (SEVERE) OBESITY DUE TO EXCESS CALORIES; Z68.42 - BODY MASS INDEX (BMI) 45.0-49.9, ADULT Status: Chronic (16) NICK (obstructive sleep apnea) Code(s): G47.33 - OBSTRUCTIVE SLEEP APNEA (ADULT) (PEDIATRIC) Status: Chronic Comment: on cpap - Plan cont current plan of care, continue antibiotics, 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 Review of Systems - Review of Systems Eyes: negative: Pain, Vision Change, Conjunctivae Inflammation, Eyelid Inflammation, Redness, Other ENT: negative: Ear Pain, Ear Discharge, Nose Pain, Nose Discharge, Nose Congestion, Mouth Pain, Mouth Swelling, Throat Pain, Throat Swelling, Other Respiratory: negative: Cough, Dry, Shortness of Breath, Hemoptysis, SOB with Excertion, Pleuritic Pain, Sputum, Wheezing Cardiovascular: negative: chest pain, palpitations, orthopnea, paroxysmal nocturnal dyspnea, edema, light headedness, other Gastrointestinal: negative: Nausea, Vomiting, Abdominal Pain, Diarrhea, Constipation, Melena, Hematochezia, Other Genitourinary: negative: Dysuria, Frequency, Incontinence, Hematuria, Retention , Other Musculoskeletal: negative: Neck Pain, Shoulder Pain, Arm Pain, Back Pain, Hand Pain, Leg Pain, Foot Pain, Other Skin: negative: Rash, Lesions, Luis, Bruising, Other - Medications/Allergies Allergies/Adverse Reactions: Allergies Allergy/AdvReac Type Severity Reaction Status Date / Time Penicillins Allergy Severe Rash, and Verified 02/08/18 02:44 swelling ondansetron Allergy Intermediate Nausea Verified 02/08/18 02:44 [From Zofran (as hydrochloride)] cefprozil [Cefprozil] Allergy Nausea Verified 02/08/18 02:44 ciprofloxacin Allergy Nausea Verified 02/08/18 02:44 clindamycin Allergy Nausea Verified 02/08/18 02:44 codeine [Codeine] Allergy Rash Verified 02/08/18 02:44 metronidazole [From Flagyl] Allergy Nausea Verified 02/08/18 02:44 Sulfa (Sulfonamide Allergy Nausea Verified 02/08/18 02:44 Antibiotics) Medications: Current Medications Acetaminophen (Tylenol) 650 mg PO Q4H PRN PRN Reason: Headache/Fever or Pain Last Admin: 02/13/18 00:47 Dose: 650 mg Al Hydroxide/Mg Hydroxide (Maalox) 30 ml PO Q6H PRN PRN Reason: Heartburn or Indigestion Albuterol/Ipratropium (Duoneb) 3 ml NEB Q4H PRN PRN Reason: SOB &/or Wheezing Last Admin: 02/10/18 09:54 Dose: 3 ml Albuterol/Ipratropium (Duoneb) 3 ml EZPAP [id number] [facility] Last Admin: 02/19/18 06:18 Dose: 3 ml Alprazolam (Xanax) 0.25 mg PO Q6H PRN PRN Reason: Anxiety Last Admin: 02/19/18 08:06 Dose: 0.25 mg Benzonatate (Tessalon) 100 mg PO TIDPRN PRN PRN Reason: Cough Dextrose/Water (Dextrose 50%) 25 gm IVP PRN PRN PRN Reason: HYPOGLYCEMIA PROTOCOL Diltiazem HCl (Cardizem Cd) 180 mg PO DAILY [facility] Last Admin: 02/19/18 08:39 Dose: 180 mg Docusate Sodium (Colace) 100 mg PO BID [facility] Last Admin: 02/19/18 08:40 Dose: Not Given Doxycycline Hyclate (Vibramycin) 100 mg PO BID [facility] Last Admin: 02/19/18 08:39 Dose: 100 mg Glucagon (Glucagon) 1 mg IM PRN PRN PRN Reason: HYPOGLYCEMIA PROTOCOL Guaifenesin (Mucinex) 600 mg PO Q12HR [facility] Last Admin: 02/19/18 08:39 Dose: 600 mg Hydralazine HCl (Apresoline) 10 mg SLOW IVP Q4H PRN PRN Reason: Systolic BP > 180 Last Admin: 02/09/18 13:10 Dose: 10 mg Dextrose/Water (D5w) 1,000 mls @ 0 mls/hr IV INF PRN; As Directed PRN Reason: HYPOGLYCEMIA PROTOCOL Insulin Glargine 15 units/ (Miscellaneous Medication) 0.15 mls @ 0 mls/hr SC QAM [facility] Last Admin: 02/19/18 08:36 Dose: 0.15 mls Insulin Glargine 10 units/ (Miscellaneous Medication) 0.1 mls @ 0 mls/hr SC HS [facility] Last Admin: 02/18/18 20:24 Dose: 0.1 mls Insulin Human Lispro (Humalog) 0 units SC .AGGRESSIVE SLIDING PRN; Protocol PRN Reason: AGGRESSIVE SLIDING SCALE Last Admin: 02/18/18 18:04 Dose: 9 unit Insulin Human Lispro (Humalog) 0 units SC .BEDTIME SLIDING SC PRN; Protocol PRN Reason: BEDTIME SLIDING SCALE Last Admin: 02/18/18 20:25 Dose: 3 unit Lactulose (Lactulose) 20 gm PO DAILYPRN PRN PRN Reason: Constipation Magnesium Hydroxide (Milk Of Magnesium) 30 ml PO DAILYPRN PRN PRN Reason: Constipation Metoclopramide HCl (Reglan) 10 mg PO BIDPRN PRN PRN Reason: Nausea Miscellaneous Medication (Pharmacy To Dose) 0 each PO ASDIR [facility] Montelukast Sodium (Singulair) 10 mg PO QPM [facility] Last Admin: 02/18/18 20:23 Dose: 10 mg Nystatin (Mycostatin) 500,000 units SSW QID [facility] Last Admin: 02/19/18 08:43 Dose: Not Given Pantoprazole Sodium (Protonix) 40 mg PO DAILY [facility] Last Admin: 02/19/18 08:39 Dose: 40 mg Polyethylene Glycol (Miralax) 17 gm PO DAILYPRN PRN PRN Reason: Constipation Prednisone (Prednisone) 20 mg PO QAM-WM [facility] Last Admin: 02/19/18 08:39 Dose: 20 mg Saccharomyces Boulardii (Florastor) 250 mg PO DAILY [facility] Last Admin: 02/19/18 08:39 Dose: 250 mg Sodium Chloride (Flush - Normal Saline) 10 ml IVF Q12HR [facility] Last Admin: 02/19/18 08:40 Dose: 10 ml Sodium Chloride (Flush - Normal Saline) 10 ml IVF PRN PRN PRN Reason: Saline Flush Last Admin: 02/15/18 17:00 Dose: 10 ml Warfarin Sodium (Coumadin) 2 mg PO 1700 [facility]
--- NOTE | 2018-02-19 11:40 | DIS ---
DATE OF ADMISSION: 02/08/2018 DATE OF DISCHARGE: 02/19/2018 PRIMARY CARE PHYSICIAN: Dr. Telly Rollins. DISCHARGE DISPOSITION: [facility]. PRIMARY DISCHARGE DIAGNOSES: Acute on chronic respiratory failure with hypoxia and hypercapnia; draw operator fazal obstructive pulmonary disease with exacerbation; hyperglycemia due to steroid; oral thrush; diarr hea due to antibiotics, resolved. SECONDARY DISCHARGE DIAGNOSES: Morbid obesity, obstructive sleep apnea, diabetes type 2, end-stage c hronic obstructive pulmonary disease, chronic respiratory failure, anxiety and depression, chronic an ticoagulation, history of deep venous thrombosis, gastroesophageal reflux disease, hypertension. PRIMARY PROCEDURE/OPERATION: None. RADIOLOGICAL INVESTIGATION: Chest x-ray on admission showed bibasilar opacity. Echocardiography dur ing this admission showed EF 55%-60%. The patient had several chest x-rays subsequently while in [facility]. SIGNIFICANT LABORATORY DATA: WBC 14.3, hemoglobin 12.2, platelet 184. INR 2.3. Sodium 137, potassi um 3.9, BUN 34, creatinine 0.82, calcium 8.6. DISCHARGE MEDICATIONS: Xanax 0.25 mg p.o. q.6 hourly p.r.n.; Tessalon 200 mg p.o. b.i.d.; Pulmicort nebulization twice daily; Flexeril 10 mg t.i.d. p.r.n.; Cardizem-CD 180 mg p.o. daily; Lomotil 1 tabl et q.i.d. p.r.n.; Colace 100 mg p.o. daily p.r.n.; doxycycline 100 mg p.o. b.i.d. for 7 days; fish oi l 1 capsule p.o. daily; Lasix 40 mg p.o. daily p.r.n.; Mucinex 1200 mg p.o. b.i.d.; [place] 5 one or tw o tablets q.6 hourly p.r.n.; Lantus insulin 15 units in morning and 10 units at bedtime; DuoNeb q.6 h ourly; probiotic 1 capsule daily; Singulair 10 mg p.o. daily; multivitamin 1 tablet p.o. daily; Nysta tin topical application b.i.d.; Protonix 40 mg p.o. daily; Paxil 10 mg p.o. daily; potassium chloride 20 mEq p.o. daily; prednisone 10 mg p.o. daily, after 20 mg for 7 days; Phenergan 25 mg q.6 hourly p .r.n.; Imitrex 100 mg q.12 hourly p.r.n.; Restoril 30 mg p.o. at bedtime p.r.n.; tramadol 50 mg p.o. daily; warfarin 3 mg p.o. daily. CONTRAINDICATIONS: None. CODE STATUS: FULL CODE. INPATIENT CONSULTANTS: Dr. Do in Pulmonary group was following while in hospital. Cardiology grou p was consulted while in hospital. Dr. Pa was consulted for ileus. TEST RESULTS PENDING ON DISCHARGE: None. ALLERGIES: PENICILLIN, ZOFRAN, CIPROFLOXACIN, CLINDAMYCIN. DISCHARGE PLAN: Post hospital, the patient is planned for discharge to [facility]. Subsequent ly, the patient will follow up with primary care physician. HOSPITAL COURSE: A 63-year-old female with above-mentioned medical problem who was admitted by Dr. Leah lind on 02/08/2018. Please see her H&P for further details. The patient was admitted for increasing shortness of breath. On admission, she was found with hypoxi a as well as hypercapnia. She was required admission in CCU. Pulmonary group was consulted. The patient also had ileus that is why Dr. Pa was following while in hospital. Cardiology was c onsulted in CCU. Her diabetes was out of control because of steroid. Her hemoglobin A1c was 6.7. S he has end-stage COPD and that is why she was very slow to improve. She required lot of time while [facility] to make her baseline. She was given empiric antibiotic therapy and discharged. We prescr ibed doxycycline because of antibiotics she had diarrhea, but she did not have any infection. Her di arrhea also improved with symptomatic treatment. Her oral thrush was treated with nystatin. She had supratherapeutic INR initially, but that was also improved and dose of warfarin was adjusted by Wilner garcia. This patient has significant physical deconditioning and she needs to be requiring intermediate ho me placement and that is why with help of child welfare caseworker, we arranged intermediate home. She has ap proval today. I have seen this patient bedside and examined. Please see my progress note from today for further de tail. Old record from hospital reviewed. Paper work for discharge done. Discharge medication recon ciliation done. Total time spent on discharge was 31 minutes.
[2018-02-19 14:56] VITALS: BP 135/70; TEMP 98.1
[2018-02-19] MEDS ORDERED: Warfarin Sodium 2 MG TAB PO SCH (17:00)
== END 2018-02-19 15:18 | DRG 189 ==
LOC: ERS 21:36 → CCU 02-08 00:17 → IMCU/EMU 02-14 12:24 → T4-A 02-16 22:16
PROVIDERS: ADMIT Internal Medicine; ATTEND Internal Medicine
PROC: 5A09457 Assistance with Respiratory Ventilation, 24-96 Consecutive Hours, Continuous Positive Airway Pressure (ICD-10-PCS; principal; 2018-02-08)
DX: J96.21 Acute and chronic respiratory failure with hypoxia (principal); J44.1 Chronic obstructive pulmonary disease with (acute) exacerbation; J90 Pleural effusion, not elsewhere classified; J98.11 Atelectasis; K56.7 Ileus, unspecified; Z68.42 Body mass index [BMI] 45.0-49.9, adult; B37.0 Candidal stomatitis; K52.1 Toxic gastroenteritis and colitis; J96.22 Acute and chronic respiratory failure with hypercapnia; G47.33 Obstructive sleep apnea (adult) (pediatric); E66.01 Morbid (severe) obesity due to excess calories; K21.9 Gastro-esophageal reflux disease without esophagitis; F41.9 Anxiety disorder, unspecified; F32.9 Major depressive disorder, single episode, unspecified; E11.65 Type 2 diabetes mellitus with hyperglycemia; R79.1 Abnormal coagulation profile; I12.9 Hypertensive chronic kidney disease with stage 1 through stage 4 chronic kidney disease, or unspecified chronic kidney disease; E11.22 Type 2 diabetes mellitus with diabetic chronic kidney disease; N18.2 Chronic kidney disease, stage 2 (mild); Z99.81 Dependence on supplemental oxygen; Z86.718 Personal history of other venous thrombosis and embolism; Z87.891 Personal history of nicotine dependence; Z88.1 Allergy status to other antibiotic agents; Z88.0 Allergy status to penicillin; Z88.2 Allergy status to sulfonamides; Z79.52 Long term (current) use of systemic steroids; Z79.01 Long term (current) use of anticoagulants; Z79.899 Other long term (current) drug therapy; T38.0X5A Adverse effect of glucocorticoids and synthetic analogues, initial encounter; Y92.239 Unspecified place in hospital as the place of occurrence of the external cause; T36.95XA Adverse effect of unspecified systemic antibiotic, initial encounter
CPT/HCPCS: 36415; 36416; 51702; 71045; 74019; 80048; 80053; 82553; 82805; 83036; 83735; 83880; 84484; 84703; 85007; 85025; 85027; 85610; 93005; 93010; 93306; 94640; 94660; 96365; 96367; 96375; A4216; G8978-GP-CK; G8979-GP-CI; J0360; J1940; J1956; J2920; J2930; J3475; J3480; J7050; J7506; J7620

== ENCOUNTER 2018-02-27 16:15 | Inpatient (IN) | payer MEDICARE, BC ==
[2018-02-27] MEDS ORDERED: ISOVUE-370 76%-LOCM 1 ML ONE (16:44)
[2018-02-27] MEDS ORDERED: Iopamidol 370 76% 50 ML VIAL FS ONE (16:44)
[2018-02-27 17:03] LABS: Hemoglobin 8.7 g/dL (12.0-16.0); Mean Corpuscular HGB CONC 32.6 g/dL (32.0-36.0); Mean Corpuscular Hemoglobin 29.4 pg (27.0-31.0); Mean Corpuscular Volume 90.3 fl (81.0-99.0); Mean Platelet Volume 7.1 fL (7.4-10.4); Platelet Count 220 thou/uL (130-400); RBC Distribution Width 15.6 % (11.5-14.5); Red Blood Cell (RBC) Count 2.94 mill/uL (4.20-5.40); White Blood Cell (WBC) Count 20.8 thou/uL (4.8-10.8)
[2018-02-27 17:06] LABS: PTT 42.2 SEC (22.9-36.1); Prothrombin Time 46.9 SEC (12.0-14.7)
[2018-02-27 17:09] LABS: INR-International Normal Ratio 4.7
[2018-02-27 17:17] LABS: Anisocytosis SLIGHT = 6-15 cells (100X) (0-5/hpf); Band 12 % (5-11); Lymphocytes 17 % (21-51); MDiff Complete? YES; Metamyelocyte 3 % (0-0); Monocytes 1 % (0-10); Myelocyte 3 % (0-0); Neutrophil 63 % (42-75); Ovalocytes SLIGHT = 2-5 cells (100X) (0-1/hpf); PLT Morphology Comment Appears Adequate; Polychromasia SLIGHT = 2-3 cells (100X) (0-2/hpf); Reactive Lymphocytes 1 % (0-10)
--- NOTE | 2018-02-27 17:19 | RAD ---
FRONTAL RADIOGRAPH CHEST 02/27/18 at 4:57 p.m. COMPARISON: 02/17/18, 7:15 a.m. HISTORY: Cough. FINDINGS: Patient is markedly rotated to the left limiting detailed assessment. There is increased density in t he left base which could represent volume loss, consolidation/collapse of left lower lobe and/or left pleural fluid. No pneumothorax. IMPRESSION: Suboptimal assessment of the chest secondary to rotation to the left. Increased density in the left b ase for which followup is advised. POS: RUDY
[2018-02-27 17:23] LABS: ALT (SGPT) 34 U/L (8-55); AST (SGOT) 26 U/L (5-34); Albumin 2.7 g/dL (3.4-4.8); Alkaline Phosphatase 49 U/L (40-150); Anion Gap 13 mmol/L (10-20); BUN (Urea Nitrogen) 18 mg/dL (9.8-20.1); Bilirubin, Total 0.8 mg/dL (0.2-1.2); Calc. Creatinine Clearance 0 mL/min (70-130); Calcium 8.1 mg/dL (7.8-10.44); Carbon Dioxide 25 mmol/L (23-31); Chloride 105 mmol/L (98-107); Estimated GFR-MDRD 79; Globulin 1.9 g/dL (2.4-3.5); Glucose 132 mg/dL (80-115); Lipase 17 U/L (8-78); Potassium 3.6 mmol/L (3.5-5.1); Protein, Total 4.6 g/dL (6.0-8.3); Sodium 139 mmol/L (136-145)
[2018-02-27] MEDS ORDERED: Azithromycin 500 MG VIAL ONE (18:19)
[2018-02-27] MEDS ORDERED: Vancomycin HCl 1.5 GM in Sodium Chloride 0.9% 250 ML 300 ML IVPB SCH (18:30)
[2018-02-27 18:32] LABS: Bilirubin Small (Negative); Blood, Urine Large (Negative); Clarity TURBID (Clear); Glucose, Urine (Dipstick) Negative (Negative); Leukocyte Large (Negative); Nitrite Positive (Negative); Protein, Urine (Dipstick) 100 mg/dL (Neg-Trace); Specific Gravity, Urine 1.022 (1.002-1.036); pH, Urine 5.5 (5.0-9.0)
[2018-02-27 18:35] LABS: Bacteria/HPF 4+ HPF (None Seen)
[2018-02-27 18:36] LABS: Pathc Cast-AUWi Flag 2.69 (0-2.49); Yeast-AUWi Flag 66.6 (0-25.0)
[2018-02-27 18:45] LABS: Crystals/HPF 1+ CA OXALATE HPF (Negative); Hyaline Casts/LPF 0-3 HYALINE CAST LPF (0-3 Hyaline); Other Casts/LPF None Seen LPF (0-3 Hyaline); Yeast-All Forms None Seen HPF (None Seen)
[2018-02-27] MEDS ORDERED: Phytonadione 10 MG/ML AMP SLOW IVP SCH ×2 (20:00→22:15)
[2018-02-27] MEDS ORDERED: Human Prothrombin Complx(PCC) 1,000 UNIT in Admixture Fee 1 EACH IV SCH (20:00)
--- NOTE | 2018-02-27 20:37 | CT ---
CT OF ABDOMEN AND PELVIS COMPARISON: 12/15/16 HISTORY: Abdominal pain and right sided leg pain. TECHNIQUE: Serial axial CT imaging at 5 mm intervals from the lung bases through the pubic symphysis with IV con trast. Coronal reformatted imaging obtained. FINDINGS: The visualized lung bases demonstrate increased linear density bilaterally suggesting volume loss or mild infiltrate. New trace pleural fluid noted on the right. No free intraperitoneal air is seen. There are postoperative clips along the ventral aspect of the li perry. Hepatic parenchyma is grossly unremarkable otherwise. The spleen, pancreas, and gallbladder appe ar grossly unremarkable. There is a stable exophytic hypodense lesion imaging from the ventral aspect of the liver suggesting a 3.7 cm cyst. The adrenal glands are grossly unremarkable. There is diffuse cortical thinning involving both kidneys. There are multiple subcentimeter nonobstru cting stones within both kidneys, stable. Low density lesions are seen throughout both kidneys, right more numerous than left, majority of which are too small to characterize. Two of the hypodense lesio ns within the left kidney demonstrate Hounsfield units above that expected for simple cysts, one in t he mid pole measuring 2.9 cm and one in the lower pole measuring 2.8 cm. These lesions are stable whe n compared to the 11/15/16 CT examination. They have both grown slightly since a CT performed 03/18/16 an d thus, a followup renal ultrasound is advised. Urinary bladder is thick walled and completely decompressed. Evaluation of the bowel is limited witho ut oral contrast. The rectum is mildly expanded and filled with stool. There is nonspecific stranding /fluid within the presacral space which is new and may be inflammatory in nature. Motion limits detailed assessment of the bowel within the lower abdomen. No evidence for bowel obstru ction is appreciated. There is ill-defined new mesenteric fluid inferior to the duodenum and adjacent to multiple bowel loo ps within the mid left abdomen. There is a heterogeneous mass lesion anterior to the psoas muscle on the right. The psoas muscle on the right is enlarged. These findings are new when compared to the mell or examination. The new mass lesion inseparable from the enlarged right psoas muscle measures 9.8 x 7 .0 cm and is heterogeneously hyperdense, with Hounsfield units of approximately 45-50. There is exten sive stranding of the adjacent fat throughout the right abdomen posteriorly. The vascular structures appear patent. No lymphadenopathy is appreciated within the abdomen or pelvis . The osseous structures are demineralized. There is multilevel degenerative and postoperative change within the lumbar spine. IMPRESSION: 1. Large new heterogeneously hyperdense mass anterior to an enlarged right psoas muscle. This ma ss measures 9.8 x 7.0 x 11.5 cm and there is extensive surrounding stranding and fluid density. This suggests a large retroperitoneal hematoma. There is some extension into the central pelvis, left lowe r quadrant and presacral space. Recommend followup imaging following treatment to document resolution . 2. Numerous incidental findings, including, mildly hyperdense lesions within the left kidney for which followup renal ultrasound is advised. Results called to Dr. Can at 7:35 p.m., 02/27/18. Code CR POS: SJ
[2018-02-27] MEDS ORDERED: Dextrose 50% Abboject 50 ML SYRINGE SLOW IVP PRN (21:48)
[2018-02-27] MEDS ORDERED: Acetaminophen 325 MG TAB PO PRN (21:48)
[2018-02-27] MEDS ORDERED: Mag-Al 1200 mg/1200 mg/30 ML UDCUP PO PRN (21:48)
[2018-02-27] MEDS ORDERED: Senokot 8.6 MG TAB PO PRN (21:48)
[2018-02-27] MEDS ORDERED: Loperamide HCl 2 MG CAP PO PRN (21:48)
[2018-02-27] MEDS ORDERED: HumaLOG 300 UNITS/3 ML VIAL SC PRN ×2 (21:48)
[2018-02-27] MEDS ORDERED: Bisacodyl 10 MG SUPP PR PRN (21:48)
[2018-02-27] MEDS ORDERED: Milk Of Magnesia 30 ML UDCUP PO PRN (21:48)
[2018-02-27] MEDS ORDERED: Dextrose 5% in Water 1,000 ML IV PRN (21:48)
[2018-02-27] MEDS ORDERED: Promethazine HCl 25 MG/ML VIAL IM/IV PRN (21:49)
[2018-02-27 22:28] VITALS: BMI 47.7
[2018-02-27 23:30] LABS: INR-International Normal Ratio 1.6; Prothrombin Time 19.2 SEC (12.0-14.7)
[2018-02-28 00:03] VITALS: BP 93/52
[2018-02-28] MEDS ORDERED: Sodium Chloride 0.9% 1,000 ML IV SCH (00:15)
--- NOTE | 2018-02-28 00:48 | HP ---
PRIMARY CARE PHYSICIAN: Dr. Telly Rollins. REASON FOR ADMISSION: Retroperitoneal bleed, left lower lobe pneumonia, UTI, sepsis, encephalopathy. HISTORY OF PRESENT ILLNESS: A 63-year-old female who has end-stage COPD as well as chronic physical deconditioning. She has previous history of deep vein thrombosis in the right common femoral vein as well as the superficial femoral vein as well as left popliteal vein and she is on chronic anticoagulation therapy with warfarin. Her DVT was diagnosed in 2017. In addition to that, the patient does have paroxysmal atrial fibrillation and diabetes type 2. She lives [facility]. She was brought to emergency room for altered mental status, diffuse abdominal pain. She is not able to provide good history. She did not have any constipation or diarrhea. She did not have any UTI symptoms, though patient was altered and unable to provide a good history. In the emergency room, this patient was evaluated with a CT of the abdomen and pelvis and found with a large retroperitoneal bleeding. Her chest x-ray also suspected for left lower lobe pneumonia and her urinalysis was consistent with UTI. She was meeting sepsis criteria with a supratherapeutic INR. The patient was relatively hypotensive. She failed swallow evaluation in the emergency room, she was tachycardic and she was having gurgling sounds in her throat. She was not able to cough out. She appeared very weak. Patient had a fleet enema yesterday and the patient had small bowel movement this morning. The patient wanted to keep herself FULL CODE. REVIEW OF SYSTEMS: All review of systems tried to review with her but unable to review due to encephalopathy and not reliable. PAST MEDICAL HISTORY: Chronic respiratory failure with hypoxia, morbid obesity , obstructive sleep apnea, nephrolithiasis, history of CVA, history of critical care illness myopathy, gastroesophageal reflux disease, hypertension, osteoarthritis, migraine headache, asthma/COPD, history of polycystic kidney disease, history of deep vein thrombosis diagnosed in 2017, chronic anticoagulation with warfarin. PAST SURGICAL HISTORY: Colon resection, hernia repair, hysterectomy, ganglion cyst removal, tracheostomy, PEG tube placement and subsequent removal in 2005, surgery for kidney stone mass removed from liver, ruptured disk surgery, hernia repair. PAST PSYCHIATRIC HISTORY: Anxiety and depression. SOCIAL HISTORY: The patient lives at [facility]. No history of tobacco, alcohol, or illicit drug abuse. He quit smoking more than 10 years ago. FAMILY HISTORY: No strong family history of premature coronary artery disease, stroke, or cancer. EMERGENCY ROOM COURSE: Patient was given Kcentra in the emergency room, she was given DuoNeb therapy, vancomycin, azithromycin, and IV fluid of 2 liter. ALLERGIES: The patient has multiple drug allergies including PENICILLIN, ZOFRAN , CEFPROZIL, CIPROFLOXACIN, CLINDAMYCIN, CODEINE, METRONIDAZOLE, SULFA. CURRENT HOME MEDICATIONS: Unable to verify from custodial at this point, but the patient was discharged recently from hospital on following medications: Xanax 0.25 mg p.o. daily p.r.n., Tessalon 200 mg p.o. b.i.d. p.r.n., Pulmicort nebulization twice daily, Flexeril 10 mg t.i.d. p.r.n., Cardizem-CD 180 mg p.o. daily, Lomotil 1 tablet q.i.d. p.r.n., Colace 100 mg daily p.r.n., fish oil 1 capsule p.o. daily, Lasix 40 mg p.o. daily p.r.n., Mucinex 1200 mg p.o. b.i.d., [place] 5 one or two tablets q.6 hourly p.r.n., Lantus insulin 15 units in morning and 10 units at bedtime, DuoNeb q.6 hourly, probiotic 1 capsule daily, Singulair 10 mg p.o. daily, multivitamin 1 tablet p.o. daily, Protonix 40 mg p.o. daily, Paxil 10 mg p.o. daily, potassium chloride 20 mEq p.o. daily, prednisone 10 mg p.o. daily, Phenergan 25 mg q.6 hourly p.r.n., Imitrex 100 mg q.12 hourly p.r.n., Restoril 30 mg p.o. at bedtime, tramadol 50 mg daily, warfarin 3 mg p.o. daily. PHYSICAL EXAMINATION: VITAL SIGNS: On arrival, blood pressure 99/66, pulse 97, respiratory rate 20, temperature 98.5, saturation 98% on 4-liter oxygen, weight 135 kilograms. GENERAL: Patient is currently lethargic, arousable, follows simple command. No obvious acute distress. HEAD: Normocephalic, atraumatic. EYES: Pupils round, reactive to light. Extraocular muscle intact. ENT: Oropharynx within normal limits. Moist mucous membranes. No oral lesion , no pharyngeal erythema, no exudate. NECK: Supple. No JVD, no thyromegaly, no carotid bruit. LUNGS: Coarse breath sounds, end expiratory wheezing heard. CARDIAC: S1, S2 appears regular. No murmur, no gallop, no rub. ABDOMEN: Morbid obesity present. Diffuse tenderness more on the right side. Examination is limited because of obesity. BACK: Unremarkable. No CVA tenderness. EXTREMITIES: Upper extremity: Passive movement of all joints are normal. Lower extremity: Trace lower extremity edema noted. No calf tenderness. SKIN: Patient does have multiple bruits noted on her body. NEUROLOGIC: Grossly nonfocal examination. Her speech is intact. No focal neurological deficit based on neurological examination, but detailed classic neurological examination is not possible because patient is not completely cooperative. PSYCHIATRIC: Flat affect. SIGNIFICANT DIAGNOSTIC AND LABORATORY DATA: EKG showing sinus tachycardia, premature atrial complexes, nonspecific ST-T changes in anterior leads. Chest x -ray based on my review, increased density in left lower lobe. CT of the abdomen and pelvis showing large and new heterogeneity and hyperdense mass anterior to enlarged right psoas muscle consistent with retroperitoneal bleeding /hematoma. CBC: WBC 20.8, hemoglobin 8.7, platelet 220,000 with bandemia. INR 4.7. BMP: Sodium 139, potassium 3.6, chloride 105, carbon dioxide 25, anion gap 13, BUN 18, creatinine 0.75, glucose 132, calcium 8.1, lactic acid 1.2. LFT: AST 26, ALT 34, alkaline phosphatase 49, albumin 2.7, lipase 17. Urinalysis suggestive of urinary tract infection. Blood culture, urine culture obtained in the emergency room. IMPRESSION: 1. Acute retroperitoneal bleeding, likely due to chronic anticoagulation therapy with supratherapeutic INR. 2. Sepsis with acute organ dysfunction. 3. Urinary tract infection. 4. Left lower lobe pneumonia, nursing-home acquired. 5. Acute encephalopathy. 6. History of deep venous thrombosis on right common femoral vein and superficial femoral vein as well as left popliteal vein. 7. Chronic anticoagulation therapy with warfarin. 8. Supratherapeutic INR due to warfarin-induced coagulopathy. 9. End-stage chronic obstructive pulmonary disease. 10. Paroxysmal atrial fibrillation. 11. Diabetes type 2. 12. Gastroesophageal reflux disease. 13. Anxiety and depression. 14. Morbid obesity. 15. Obstructive sleep apnea. 16. Chronic respiratory failure with hypoxia. 17. History of polycystic kidney disease. 18. Physical deconditioning. 19. Anemia due to acute blood loss PLAN: 1. Full admission to medical ICU, close monitoring vitals, monitor H and H. We will do H and H at 12:00 a.m. and then we will repeat in the morning labs. If hemoglobin drops below 7, then we will consider blood transfusion. For supratherapeutic INR, we are giving Kcentra and will repeat INR in the morning. The patient is not a candidate for anticoagulation therapy for at least one month. This patient may not need IVC filter because her DVT is very old. She will be evaluated by bull driver in the medical ICU based on her multiple drug allergies. We will start Azactam, vancomycin and will follow up on culture result. Patient has failed swallow evaluation in the emergency room and that is why we will consult speech therapy in the morning for swallowing assessment. Once the patient is clear for oral intake, then we will resume selected home medication. We will also check random cortisol level at midnight. Hyperglycemia protocol orders will be given. Palliative Care will be consulted to assess goal of care. Deep venous thrombosis prophylaxis, sequential compression device boots only. Gastrointestinal prophylaxis, Protonix 40 mg IV daily. CODE STATUS: I spoke with the patient and patient wants to be a FULL CODE. Disposition plan based on clinical course. Patient will require hospitalization more than 2 midnights and eventually she will go back to custodial. Prognosis is poor. Condition is moderate to severe. prognosis discussed with family member bedside MTDD
[2018-02-28] MEDS ORDERED: Calcium Chloride 1 GM/10 ML Abboject SYRINGE ONE (01:30)
[2018-02-28] MEDS ORDERED: Lorazepam 2 MG/ML VIAL SLOW IVP SCH (01:30)
[2018-02-28] MEDS ORDERED: EPINEPHrine 1 MG/10 ML Abboject SYRINGE ONE (01:30)
--- NOTE | 2018-02-28 02:48 | PDOC.CNTRL ---
<Curtis Mckeon - Last Filed: 02/28/18 02:46> Central Line Procedure Note - Procedure Date: 02/28/18 Time: 01:00 - PreProcedure Diagnosis: Hypotension 2/2 actue blood loss anemia - PostProcedure Diagnosis: Hypotension 2/2 actue blood loss anemia - Description Focused site: internal jugular: Right (Obtained with first stick), subclavian vein: Right (Attempted first, unable to obtain IV access. Transitioned to IJ) Ultrasound guidance: Yes Complications: other (none) Procedure in Details: INDICATION: Hypotension PROCEDURE BLINDSTITCH LAPEL PADDER: Dr. Linda Marmolejo ATTENDING PHYSICIAN: In Attendance throughout the entire procedure CONSENT: Consent was obtained from the patient prior to the procedure. Indications, risks , and benefits were explained at length including infection, bleeding, pneumothorax, and/or damage to nearby structures PROCEDURE SUMMARY: A time out was performed. My hands were washed immediately prior to the procedure. I wore a surgical cap, mask with protective eyewear, full gown and sterile gloves throughout the procedure. The patient was placed in Trendelenburg position. RIGHT chest region was prepped using chlorhexidine scrub and draped in sterile fashion using a three quarter sheet drape and sterile towels. A subclavian approach was attempted initially secondary to complete collapse of the internal jugular veins b/l on POC ultrasound and inability to get sterile access to either femoral artery secondary to patient body habitus. Anesthesia was achieved with 1% lidocaine. The introducer needle was inserted approximately two centimeters lateral to and 1 cm inferior to the normal curvature of the patient's clavicle. Venous blood was unable to be withdrawn after two attempts. It was decided to transition to a right internal jugular central line. The medial and lateral heads of the sternocleidomastoid muscle were identified as was the carotid pulse. The Internal Jugular vein was identified using the ultrasound. Anesthesia was achieved over the vein using 1% lidocaine. Using real -time out of plane guidance, the introducer needle was inserted into the Internal Jugular vein under direct ultrasound visualization. Venous blood was withdrawn. The syringe was removed and a guidewire was advanced into the introducer needle. The guidewire was visualized in the Internal Jugular Vein by ultrasound. A small incision was made at the skin surface with a scalpel and the introducer needle was exchanged for a dilator over the guidewire. After appropriate dilation was obtained, the dilator was exchanged over the wire for a Triple lumen central venous catheter. The wire was removed and the catheter was sutured in place at 15 cm. A sterile sorbaview shield was placed over the catheter at the insertion site. The patient tolerated the procedure without any hemodynamic compromise. At time of procedure completion, all ports aspirated and flushed properly. Post-procedure chest x-ray is pending at this time. Estimated blood loss 10 cc <Malvin Perez - Last Filed: 02/28/18 03:10> Attending Addendum - Attending Addendum Date/Time: 02/28/18 0309 I personally evaluated the patient and supervised and participated in the procedure described by with Dr. Mckeon. I agree with the desciption documented above. I also attempted 2 passes via the subclavian route without success. IJ was accessed on the first attempt under Ultrasound guidance.
--- NOTE | 2018-02-28 04:13 | DS ---
DATE OF ADMISSION: 02/27/2018 DATE OF : 02/28/2018 TIME OF : 02:13 a.m. PRIMARY CAUSE OF : 1. Acute retroperitoneal bleed. 2. Anemia due to acute blood loss. 3. Pulseless electrical activity. 4. Septic shock. 5. Left lower lobe pneumonia. 6. Urinary tract infection. 7. Acute metabolic encephalopathy. DISCHARGE DIAGNOSES: Chronic respiratory failure with hypoxia, morbid obesity with obstructive sleep apnea, chronic obstructive pulmonary disease, chronic anticoagulation with warfarin for history of d eep vein thrombosis, physical deconditioning. SHORT HOSPITAL SUMMARY: This patient was on chronic anticoagulation therapy for her history of DVT a nd paroxysmal atrial fibrillation. She had supratherapeutic INR. She was sent from skilled nursing for abdominal pain. She was encephalopathic, hypotensive. She was not able to provide good history, bu t based on report, she was complaining of abdominal pain and that was why CT of the abdomen and pelvi s was done in emergency room, which showed large retroperitoneal bleeding. She also had left lower l obe pneumonia as well as urinalysis consistent with UTI. She was meeting sepsis criteria. She had C oumadin induced coagulopathy. She was hypotensive. She failed swallowing evaluation in the emergenc y room. She was tachycardic. She was having gurgling sound in her throat. She was admitted to [facility] ICU. Patient was given IV fluid, but her blood pressure was not improved that is why we decided to do the central line. For Coumadin coagulopathy, patient was given K-centra and her INR was correc richard. After central line, patient appeared to be in distress and patient was also having increasing d ifficulty breathing. We started on DuoNeb therapy. We tried to do chest x-ray, but subsequently imm ediately patient became pulseless electrical activity and we did 25 minutes of resuscitation with sev eral rounds of epinephrine, calcium chloride without any success. Family member was notified about and was pronounced at 2:13 a.m. during entire resuscitat ion. Patient remained in pulseless electrical activity.
[2018-02-28 05:08] VITALS: TEMP 99.1
[2018-02-28] MEDS ORDERED: Budesonide 0.5 MG/2 ML NEB INH SCH (06:30)
[2018-02-28] MEDS ORDERED: Pantoprazole 40 MG VIAL IVP SCH (09:00)
[2018-02-28] MEDS ORDERED: Saccharomyces boulardii 250 MG CAP PO SCH (09:00)
[2018-02-28] MEDS ORDERED: Aztreonam 1 GM in Sodium Chloride 0.9% 100 ML IVPB SCH (09:00)
--- NOTE | 2018-02-28 12:08 | RAD ---
PRELIMINARY REPORT/[facility]/EMERGENCY AFTER HOURS PROCEDURE: EXAM: XR Chest, 1 View EXAM DATE/TIME: 02/28/2018 1:47 AM CLINICAL HISTORY: 63 years old, female; Device placement; Other: Central line placement; Patient HX: Eval for possible pneumonia. No other xray was shot due to PT starting coding. PT TECHNIQUE: XR of the chest, 1 view. COMPARISON: No relevant prior studies available. FINDINGS: Limited due to rotation and positioning Central venous catheter tip projects to the left of midline which may be due to rotation. Basilar opacities and presumed pleural effusions. No definite pneumothorax IMPRESSION: Limited evaluation as described with central line projecting to the left of midline which may be posi tional Thank you for allowing us to participate in the care of your patient. Dictated and Authenticated by: Mike Tavares MD 02/28/2018 3:34 AM Central Time ([place] & [place]) FINAL REPORT PORTABLE CHEST: Date: 02/28/18 COMPARISON: 02/27/18. HISTORY: Central line placement. FINDINGS: Patient is rotated on this examination and film is suboptimally positioned as evidently the patient c darius. The pleural and parenchymal changes in the left base are felt to be similar to the prior examin ation. There is partial visualization of the right central line. The exact position of the line is di fficult to ascertain due to the rotation. There does appear to be a right-sided pneumothorax present. There is atelectatic change in the right lower lobe. There is a linear density seen in the right mid lung field that I presume is extrinsic to the patient . It may be some type of catheter or line. IMPRESSION: 1. Mild right-sided pneumothorax, probably 20-30%. 2. Right-sided central line partially visualized. The tip is to the left of midline, but it is diffi cult to ascertain the exact position due to the rotation. This report is in disagreement with the preliminary report issued by [facility] in that there is a pneumothorax present. This was telephoned to the [employer] [facility]. POS: RUDY
== END 2018-02-28 05:40 | disposition expired | DRG 871 ==
LOC: ERS 16:15 → IMCU/EMU 21:27
PROVIDERS: ADMIT Internal Medicine; ATTEND Internal Medicine
PROC: 02HV33Z Insertion of Infusion Device into Superior Vena Cava, Percutaneous Approach (ICD-10-PCS; principal; 2018-02-28)
PROC: B548ZZA Ultrasonography of Superior Vena Cava, Guidance (ICD-10-PCS; 2018-02-28)
DX: A41.9 Sepsis, unspecified organism (principal); J18.9 Pneumonia, unspecified organism; R65.21 Severe sepsis with septic shock; G93.41 Metabolic encephalopathy; N39.0 Urinary tract infection, site not specified; Q61.3 Polycystic kidney, unspecified; J96.11 Chronic respiratory failure with hypoxia; D62 Acute posthemorrhagic anemia; Z68.42 Body mass index [BMI] 45.0-49.9, adult; J44.9 Chronic obstructive pulmonary disease, unspecified; I48.0 Paroxysmal atrial fibrillation; E11.9 Type 2 diabetes mellitus without complications; R58 Hemorrhage, not elsewhere classified; E66.01 Morbid (severe) obesity due to excess calories; G47.33 Obstructive sleep apnea (adult) (pediatric); K21.9 Gastro-esophageal reflux disease without esophagitis; I10 Essential (primary) hypertension; M19.90 Unspecified osteoarthritis, unspecified site; F41.9 Anxiety disorder, unspecified; F32.9 Major depressive disorder, single episode, unspecified; Y95 Nosocomial condition; I46.9 Cardiac arrest, cause unspecified; B96.20 Unspecified Escherichia coli [E. coli] as the cause of diseases classified elsewhere; Z79.4 Long term (current) use of insulin; Z86.718 Personal history of other venous thrombosis and embolism; Z79.01 Long term (current) use of anticoagulants; Z86.73 Personal history of transient ischemic attack (TIA), and cerebral infarction without residual deficits; Z87.442 Personal history of urinary calculi; Z90.49 Acquired absence of other specified parts of digestive tract; Z87.891 Personal history of nicotine dependence; T45.515A Adverse effect of anticoagulants, initial encounter; Y92.009 Unspecified place in unspecified non-institutional (private) residence as the place of occurrence of the external cause
CPT/HCPCS: 36415; 51701; 71045; 74177; 80053; 81003; 81015; 82533; 83605; 83690; 85014; 85018; 85025; 85610; 85730; 86850; 86900; 86901; 87040; 87077; 87086; 87186; 92950; 93005; 94640; 96365; 96366; 96367; A4353; C9132; J0171; J0456; J2060; J2920; J3370; J3430; J3490; J7050; J7620